=== PATIENT | female | born 1940 | race Caucasian/White ===

== ENCOUNTER → 2017-06-22 09:37 | Outpatient (CLI) | payer MEDICARE, SELFPAY ==
--- NOTE | 2017-06-22 | DI.MRI.S_ITS ---
PROCEDURE: MR ABDOMEN WO/W CON INDICATIONS: CIRRHOSIS TECHNIQUE: Coronal HASTE, axial 2D FLASH in- and [id number]; axial breath-hold T2 FSE. Dynamic axial VIBE during the administration of contrast; post-contrast coronal VIBE or 2D FLASH with fat saturation from the hepatic dome to the iliac crests. Optional diffusion weighted imaging and ADC may be performed. COMPARISON: [facility], CT, ABDOMEN W AND WO PELVIS W, 12/11/2016, 11:37. [facility], MR, ABDOMEN W&WO CONTRAST, 12/22/2016, 10:46. [facility], MR, ABDOMEN W&WO CONTRAST, 03/19/2017, 10:46. FINDINGS: Image quality: There is motion artifact limiting evaluation. Lung bases: No basal pleural effusions. Heart size is enlarged. Solid organs: The liver is slightly nodular in contour. There is heterogeneous enhancement following contrast administration during the arterial phase with nodular foci of hypervascular enhancement again demonstrated predominantly within the right hepatic lobe. The largest focus measures up to approximately 1 cm with indistinct margins. These appear similar to the prior study. No discrete foci of washout identified. 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 No discrete mass lesion or suspicious areas of washout. There is a gallstone within the gallbladder measuring up to 1.9 cm without wall thickening or pericholecystic fluid to suggest cholecystitis. Biliary system is non dilated. Pancreas is normal in morphology. Spleen is normal in size and enhancement. No adrenal nodules. There is mild left hydronephrosis with a transition at the uteropelvic junction suggestive of a mild UPJ obstruction. There is a right extrarenal pelvis without definite hydronephrosis. Within the right kidney, there is a bilobed nonenhancing hemorrhagic cyst measuring up to 1.8 cm as well as a posterior small hemorrhagic cyst measuring up to 0.5 cm redemonstrated, similar in appearance to the prior studies. Within the inferior pole of the left kidney, there is also a hemorrhagic cyst measuring up to 1.5 cm which appears similar to the prior studies. Multiple additional small bilateral renal cysts are also again noted. Nodes and vessels: No retroperitoneal or mesenteric adenopathy by size criteria. Aorta and inferior vena cava are normal in size. Bowel and peritoneum: Visualized bowel loops are normal in caliber. No free fluid. Bones and soft tissues: No ventral hernias. Bone marrow is normal in overall signal. IMPRESSION: 1. Multiple indistinct foci of hypervascular enhancement redemonstrated without definite increase in size or evidence of corresponding focal washout. 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 LI-RADS 3. 2. Cholelithiasis without evidence of cholecystitis. 3. Bilateral hemorrhagic renal cysts redemonstrated. Dictated by: Rajeev Hurley M.D. on 06/22/2017 at 11:58 Approved by: Rajeev Hurley M.D. on 06/22/2017 at 12:45
== END ==
PROVIDERS: Family Provider Internal Medicine; PCP Internal Medicine; Visit Provider Nurse Practitioner
DX: K80.20 Calculus of gallbladder without cholecystitis without obstruction (principal); N28.1 Cyst of kidney, acquired; R93.5 Abnormal findings on diagnostic imaging of other abdominal regions, including retroperitoneum
CPT/HCPCS: 74183; A9579

== ENCOUNTER → 2017-09-26 10:03 | Outpatient (CLI) | payer MEDICARE, SELFPAY ==
[2017-09-26 10:34] LABS: INR 1.3 (0.9-1.3); Prothrombin Time 14.6 SECONDS (10.1-12.7)
[2017-09-26 10:37] LABS: Add Manual Diff / Slide Review NO; Basophils Percent Auto 0.7 % (0-2); Eosinophils Percent Auto 1.7 % (2-4); Hematocrit 39.3 % (36-46); Hemoglobin 13.4 g/dL (12.0-16.0); Lymphocytes Percent Auto 34.4 % (25-40); Mean Corpuscular HGB Conc 34.2 % (30-36); Mean Corpuscular Hemoglobin 32.3 PG (26-34); Mean Corpuscular Volume 94.6 fL (80-100); Monocytes Percent Auto 9.9 % (3-14); Neutrophils Absolute Auto 3100 /uL (3000-5900); Neutrophils Percent Auto 53.3 % (50-75); Platelet Count 209 X10^3/uL (150-400); Red Blood Cell Count 4.15 X10^6/uL (4.0-5.2); Red Cell Distribution Width 13.6 % (11.6-14.8); White Blood Cell Count 5.7 X10^3/uL (4.5-11.0)
[2017-09-26 11:32] LABS: Alanine Aminotransferase 52 IU/L (9-52); Alkaline Phosphatase 152 U/L (38-126); Aspartate Aminotransferase 66 IU/L (14-36); Bilirubin Total 0.7 mg/dL (0.2-1.3); Bilirubin Unconjugated 0.3 mg/dL (0.0-1.1); Blood Urea Nitrogen 18 mg/dL (7-17); Calcium 9.2 mg/dL (8.4-10.2); Carbon Dioxide 28 mmol/L (22-32); Chloride 105 mmol/L (98-107); Cholesterol 150 mg/dL (140-199); Estimated Glomerular Filt Rate > 60.0 mL/min (>60); Gamma Glutamyl Transpeptidase 229 U/L (12-43); Globulin 4.2 g/dL (1.7-4.1); Glucose 103 mg/dL (80-110); HDL Cholesterol 48 mg/dL (40-60); HEMOLYSIS < 15 (0-50); LDL Cholesterol Calculated 88 mg/dL (<100); Potassium 4.6 mmol/L (3.4-5.1); Sodium 141 mmol/L (137-145); Total Protein 8.2 g/dL (6.3-8.2); Triglycerides 69 mg/dL (35-150)
[2017-09-28 15:19] LABS: Immunoglobulin G, Quantitative 2256 mg/dL (694-1618)
[2017-09-29 15:51] LABS: Alpha Fetoprotein 4.2 ng/mL (< 6.1)
== END ==
PROVIDERS: Family Provider Internal Medicine; PCP Internal Medicine; Visit Provider Nurse Practitioner
DX: R93.8 Abnormal findings on diagnostic imaging of other specified body structures (principal); K75.4 Autoimmune hepatitis
CPT/HCPCS: 36415; 80048; 80061; 80076; 82105; 82784; 82977; 85025; 85610

== ENCOUNTER → 2017-10-01 14:33 | Outpatient (CLI) | payer MEDICARE, SELFPAY ==
--- NOTE | 2017-10-01 | DI.MRI.S_ITS ---
PROCEDURE: MR ABDOMEN WO/W CON INDICATIONS: AUTOIMMUNE HEPATITIS TECHNIQUE: Coronal HASTE, axial 2D FLASH in- and [id number]; axial breath-hold T2 FSE. Dynamic axial VIBE during the administration of contrast; post-contrast coronal VIBE or 2D FLASH with fat saturation from the hepatic dome to the iliac crests. Optional diffusion weighted imaging and ADC may be performed. COMPARISON: [facility], MR, MR ABDOMEN WO/W CON, 06/22/2017, 10:13. [facility], MR, ABDOMEN W&WO CONTRAST, 03/19/2017, 10:46. [facility], MR, ABDOMEN W&WO CONTRAST, 12/22/2016, 10:46. FINDINGS: Image quality: Excellent. Lung bases: No basal pleural effusions. Heart size is normal. Solid organs: Liver is normal in size and enhancement except for a subtle micronodular pattern of enhancement is seen on the early arterial phase of intravascular contrast perfusion imaging. The liver margination is slightly nodular. Gallbladder again is seen to contain a moderately large gallstone but no inflammation or biliary obstruction is present.. Biliary system is non dilated. Pancreas is normal in morphology. Spleen is normal in size and enhancement. No adrenal nodules. Both kidneys demonstrate normal size and enhancement, without hydronephrosis. Several scattered small renal cortical cysts are present, including several cysts that are high in signal intensity on precontrast T1 imaging and do not show internal enhancement on postcontrast/delayed imaging. This is best seen at the lateral border of the middle third of the right kidney. Nodes and vessels: No retroperitoneal or mesenteric adenopathy by size criteria. Aorta and inferior vena cava are normal in size. Bowel and peritoneum: Unenhanced bowel loops are normal in caliber. No free fluid. Bones and soft tissues: No ventral hernias. Bone marrow is normal in overall signal. IMPRESSION: Stable micronodular pattern of hepatic enhancement, with slight nodularity along the capsular margin of the liver parenchyma in this patient with reported autoimmune hepatitis. There is no suspicion for underlying malignancy. A dominant gallstone is present within the gallbladder lumen previously the case, and there is no sign of biliary obstruction or acute cholecystitis. Scattered renal cortical cysts several of which appear to contain hemorrhagic/proteinaceous content. The study is essentially identical to the prior examination from June of this year. Dictated by: Krystian Ward M.D. on 10/01/2017 at 16:19 Approved by: Krystian Ward M.D. on 10/01/2017 at 16:25
== END ==
PROVIDERS: Family Provider Internal Medicine; PCP Internal Medicine; Visit Provider Nurse Practitioner
DX: K75.4 Autoimmune hepatitis (principal); K80.80 Other cholelithiasis without obstruction; N28.1 Cyst of kidney, acquired
CPT/HCPCS: 74183; A9579

== ENCOUNTER → 2017-11-05 10:31 | Outpatient (CLI) | payer MEDICARE, SELFPAY ==
--- NOTE | 2017-11-05 | DI.MG.S_ITS ---
BILATERAL DIGITAL SCREENING MAMMOGRAM 3D/2D WITH CAD: 11/05/2017 CLINICAL: Routine screening. Family history of breast cancer. Comparison is made to exams dated: 11/09/2015 mammogram, 11/19/2013 mammogram, and 09/03/2012 mammogram - [facility]. There are scattered fibroglandular elements in both breasts. Current study was also evaluated with a Computer Aided Detection (CAD) system. No significant masses, calcifications, or other findings are seen in either breast. There has been no significant interval change. IMPRESSION: NEGATIVE There is no mammographic evidence of malignancy. A 1 year screening mammogram is recommended.(11/06/2018) This exam was interpreted at Station ID: [id number]. NOTE: For mammograms, a report in lay terms will be sent to the patient. Approximately 15% of breast malignancies will not be visualized mammographically. In the management of a palpable breast mass, a negative mammogram must not discourage biopsy of a clinically suspicious lesion. Electronically Signed By: Violet murphy/jennifer:11/05/2017 11:12:38 letter sent: Normal Exam ACR BI-RADS Category 1: Negative [id number]
== END ==
PROVIDERS: Family Provider Internal Medicine; PCP Internal Medicine; Visit Provider Internal Medicine
DX: Z12.31 Encounter for screening mammogram for malignant neoplasm of breast (principal); Z80.3 Family history of malignant neoplasm of breast
CPT/HCPCS: 77063; 77067

== ENCOUNTER → 2017-12-10 12:32 | Outpatient (CLI) | payer MEDICARE, SELFPAY | PROVIDERS: Visit Provider Internal Medicine | DX: M81.0 Age-related osteoporosis without current pathological fracture (principal); Z78.0 Asymptomatic menopausal state; Z87.891 Personal history of nicotine dependence | CPT/HCPCS: 77080 ==

== ENCOUNTER → 2018-02-13 09:23 | Outpatient (CLI) | payer MEDICARE, SELFPAY ==
--- NOTE | 2018-02-13 | DI.MRI.S_ITS ---
PROCEDURE: MR ABDOMEN WO/W CON INDICATIONS: AUTOIMMUNE HEPATITIS TECHNIQUE: Coronal HASTE, axial 2D FLASH in- and [id number]; axial breath-hold T2 FSE with fat saturation from the hepatic dome to the iliac crests. Oblique coronal thin-slice and radial thick slab HASTE through the biliary system. Dynamic axial VIBE during administration of contrast. Post-contrast coronal VIBE or 2D FLASH with fat saturation from the hepatic dome to the iliac crests. Optional diffusion weighted imaging and ADC may be performed. COMPARISON: [facility], , ABDOMEN W&WO CONTRAST, 12/22/2016, 10:46. [facility], MR, ABDOMEN W&WO CONTRAST, 03/19/2017, 10:46. [facility], , MR ABDOMEN WO/W CON, 06/22/2017, 10:13. [facility], , MR ABDOMEN WO/W CON, 10/01/2017, 14:54. FINDINGS: Image quality: Excellent. Solid organs: The liver demonstrates a mildly nodular hepatic contour consistent with cirrhosis. Following contrast administration, numerous small foci of mild hypervascular enhancement with indistinct margins are redemonstrated throughout the liver. A hr representative nodule in the inferior right hepatic lobe on series 8 image 69 measures up to 1.0 cm, similar in size compared to the prior studies. No abnormal focal washout demonstrated on delayed images. The findings again likely represent regenerative or dysplastic nodules. No definite evidence of a hepatoma. The gallbladder is partially distended with an intraluminal gallstone redemonstrated measuring up to approximately 1.9 cm. No gallbladder wall thickening or pericholecystic fluid. No biliary duct dilatation. The pancreas demonstrates no focal lesions. No pancreatic duct dilatation. No peripancreatic edema or fluid collections. Spleen is normal in size and enhancement. No adrenal nodules. Multiple bilateral renal cysts are redemonstrated including presumed hemorrhagic cysts which demonstrate mild T1 hyperintensity and hypointense signal on T2. These include 2 small lesions in the right kidney measuring up to 1.6 cm laterally and 0.5 cm posteriorly and a small lesion in the left kidney measuring up to 1.4 cm. These appear similar in size to the prior studies. Nodes and vessels: No retroperitoneal or mesenteric adenopathy by size criteria. Aorta and inferior vena cava are normal in size. Bowel and peritoneum: Visualized bowel loops are normal in caliber throughout. No free fluid. Lung bases: No basal pleural effusions. Heart size is normal. Bones and soft tissues: No ventral hernias. Bone marrow is normal in overall signal. IMPRESSION: 1. Multiple small foci of hypervascular enhancement redemonstrated throughout the liver without corresponding abnormal washout. The findings are similar to the prior studies and again likely represent regenerative or dysplastic nodules. Recommend attention on followup. LI-RADS 3. 2. No definite evidence of a hepatoma. 3. Nodular cirrhotic liver redemonstrated. 4. Cholelithiasis without evidence of cholecystitis. 5. Bilateral hemorrhagic cysts redemonstrated. Dictated by: Rajeev Hurley M.D. on 02/13/2018 at 15:19 Approved by: Rajeev Hurley M.D. on 02/13/2018 at 16:00
[2018-02-13 10:07] LABS: INR 1.3 (0.9-1.3); Prothrombin Time 14.9 SECONDS (10.1-12.7)
[2018-02-13 10:10] LABS: Add Manual Diff / Slide Review NO; Basophils Percent Auto 0.8 % (0-2); Eosinophils Percent Auto 2.1 % (2-4); Hematocrit 40.2 % (36-46); Hemoglobin 13.6 g/dL (12.0-16.0); Lymphocytes Percent Auto 23.3 % (25-40); Mean Corpuscular HGB Conc 33.8 % (30-36); Mean Corpuscular Hemoglobin 32.9 PG (26-34); Mean Corpuscular Volume 97.5 fL (80-100); Monocytes Percent Auto 9.2 % (3-14); Neutrophils Absolute Auto 4100 /uL (1500-7000); Neutrophils Percent Auto 64.6 % (50-75); Platelet Count 268 X10^3/uL (150-400); Red Blood Cell Count 4.13 X10^6/uL (4.0-5.2); Red Cell Distribution Width 14.2 % (11.6-14.8); White Blood Cell Count 6.4 X10^3/uL (4.5-11.0)
[2018-02-13 10:18] LABS: Alanine Aminotransferase 40 IU/L (9-52); Albumin 4.1 g/dL (3.5-5.0); Albumin Globulin Ratio 0.9 (1.0-2.8); Alkaline Phosphatase 140 U/L (38-126); Aspartate Aminotransferase 64 IU/L (14-36); BUN Creatinine Ratio 18.9 (6-22); Bilirubin Total 0.7 mg/dL (0.2-1.3); Bilirubin Unconjugated 0.4 mg/dL (0.0-1.1); Blood Urea Nitrogen 17 mg/dL (7-17); Calcium 9.2 mg/dL (8.4-10.2); Carbon Dioxide 27 mmol/L (22-32); Chloride 104 mmol/L (98-107); Estimated Glomerular Filt Rate > 60.0 mL/min (>60); Globulin 4.6 g/dL (1.7-4.1); Glucose 112 mg/dL (80-110); HEMOLYSIS < 15 (0-50); Potassium 4.6 mmol/L (3.4-5.1); Sodium 141 mmol/L (137-145); Total Protein 8.7 g/dL (6.3-8.2)
[2018-02-15 15:08] LABS: Alpha Fetoprotein 4.2 ng/mL (< 6.1)
== END ==
PROVIDERS: Visit Provider Nurse Practitioner
DX: K75.4 Autoimmune hepatitis (principal); K74.69 Other cirrhosis of liver; K80.20 Calculus of gallbladder without cholecystitis without obstruction; N28.1 Cyst of kidney, acquired
CPT/HCPCS: 36415; 74183; 80048; 80076; 82105; 85025; 85610; A9579

== ENCOUNTER → 2018-03-22 10:20 | Outpatient (CLI) | payer MEDICARE, SELFPAY ==
[2018-03-22 11:26] LABS: INR 1.2 (0.9-1.3); Prothrombin Time 14.2 SECONDS (10.1-12.7)
[2018-03-22 11:33] LABS: Alanine Aminotransferase 45 IU/L (9-52); Alkaline Phosphatase 125 U/L (38-126); Aspartate Aminotransferase 63 IU/L (14-36); Bilirubin Total 0.6 mg/dL (0.2-1.3); Bilirubin Unconjugated 0.4 mg/dL (0.0-1.1); Gamma Glutamyl Transpeptidase 178 U/L (12-43); Globulin 4.1 g/dL (1.7-4.1); HEMOLYSIS < 15 (0-50); Total Protein 8.1 g/dL (6.3-8.2)
== END ==
PROVIDERS: PCP Internal Medicine; Visit Provider Nurse Practitioner
DX: K75.4 Autoimmune hepatitis (principal)
CPT/HCPCS: 36415; 80076; 82977; 85610

== ENCOUNTER → 2018-05-23 11:03 | Outpatient (CLI) | payer MEDICARE, SELFPAY ==
[2018-05-23 11:54] LABS: Add Manual Diff / Slide Review NO; Basophils Absolute Auto 0 /uL (0-100); Basophils Percent Auto 0.5 % (0-2); Eosinophils Absolute Auto 0 /uL (0-450); Eosinophils Percent Auto 0.2 % (2-4); Hematocrit 42.7 % (36-46); Hemoglobin 14.2 g/dL (12.0-16.0); Lymphocytes Absolute Auto 2300 /uL (1100-4500); Lymphocytes Percent Auto 22.1 % (25-40); Mean Corpuscular HGB Conc 33.4 % (30-36); Monocytes Absolute Auto 900 /uL (0-900); Monocytes Percent Auto 8.9 % (3-14); Neutrophils Absolute Auto 7000 /uL (1500-7000); Neutrophils Percent Auto 68.3 % (50-75); Platelet Count 247 X10^3/uL (150-400); Red Blood Cell Count 4.45 X10^6/uL (4.0-5.2); Red Cell Distribution Width 13.4 % (11.6-14.8); White Blood Cell Count 10.3 X10^3/uL (4.5-11.0)
[2018-05-23 12:32] LABS: Alanine Aminotransferase 37 IU/L (9-52); Albumin 3.9 g/dL (3.5-5.0); Albumin Globulin Ratio 1.1 (1.0-2.8); Alkaline Phosphatase 100 U/L (38-126); Aspartate Aminotransferase 36 IU/L (14-36); Bilirubin Total 0.6 mg/dL (0.2-1.3); Bilirubin Unconjugated 0.4 mg/dL (0.0-1.1); Gamma Glutamyl Transpeptidase 178 U/L (12-43); Globulin 3.7 g/dL (1.7-4.1); HEMOLYSIS < 15 (0-50); Total Protein 7.6 g/dL (6.3-8.2)
== END ==
PROVIDERS: PCP Internal Medicine; Visit Provider Nurse Practitioner
DX: K75.4 Autoimmune hepatitis (principal)
CPT/HCPCS: 36415; 80076; 82977; 85025

== ENCOUNTER → 2018-05-30 09:34 | Outpatient (CLI) | payer MEDICARE, SELFPAY ==
[2018-05-30 10:30] LABS: Add Manual Diff / Slide Review NO; Basophils Absolute Auto 0 /uL (0-100); Basophils Percent Auto 0.5 % (0-2); Eosinophils Absolute Auto 0 /uL (0-450); Hematocrit 43.1 % (36-46); Hemoglobin 14.5 g/dL (12.0-16.0); Lymphocytes Absolute Auto 1800 /uL (1100-4500); Lymphocytes Percent Auto 16.8 % (25-40); Mean Corpuscular HGB Conc 33.6 % (30-36); Mean Corpuscular Hemoglobin 32.1 PG (26-34); Mean Corpuscular Volume 95.6 fL (80-100); Monocytes Absolute Auto 400 /uL (0-900); Monocytes Percent Auto 3.5 % (3-14); Neutrophils Absolute Auto 8300 /uL (1500-7000); Neutrophils Percent Auto 79.2 % (50-75); Platelet Count 195 X10^3/uL (150-400); Red Cell Distribution Width 13.6 % (11.6-14.8); White Blood Cell Count 10.5 X10^3/uL (4.5-11.0)
[2018-05-30 11:14] LABS: Alanine Aminotransferase 38 IU/L (9-52); Albumin 3.7 g/dL (3.5-5.0); Albumin Globulin Ratio 1.1 (1.0-2.8); Alkaline Phosphatase 79 U/L (38-126); Aspartate Aminotransferase 38 IU/L (14-36); Bilirubin Total 0.7 mg/dL (0.2-1.3); Bilirubin Unconjugated 0.6 mg/dL (0.0-1.1); Gamma Glutamyl Transpeptidase 162 U/L (12-43); Globulin 3.4 g/dL (1.7-4.1); HEMOLYSIS < 15 (0-50); Total Protein 7.1 g/dL (6.3-8.2)
== END ==
PROVIDERS: PCP Internal Medicine; Visit Provider Nurse Practitioner
DX: K75.4 Autoimmune hepatitis (principal)
CPT/HCPCS: 36415; 80076; 82977; 85025

== ENCOUNTER → 2018-06-06 10:18 | Outpatient (CLI) | payer MEDICARE, SELFPAY ==
[2018-06-06 11:58] LABS: Add Manual Diff / Slide Review NO; Basophils Absolute Auto 0 /uL (0-100); Basophils Percent Auto 0.1 % (0-2); Eosinophils Absolute Auto 0 /uL (0-450); Eosinophils Percent Auto 0.3 % (2-4); Hematocrit 43.7 % (36-46); Hemoglobin 14.4 g/dL (12.0-16.0); Lymphocytes Absolute Auto 1800 /uL (1100-4500); Lymphocytes Percent Auto 17.9 % (25-40); Mean Corpuscular Hemoglobin 32.1 PG (26-34); Mean Corpuscular Volume 97.1 fL (80-100); Monocytes Absolute Auto 700 /uL (0-900); Monocytes Percent Auto 7.3 % (3-14); Neutrophils Absolute Auto 7400 /uL (1500-7000); Neutrophils Percent Auto 74.4 % (50-75); Platelet Count 208 X10^3/uL (150-400); Red Cell Distribution Width 14.4 % (11.6-14.8); White Blood Cell Count 9.9 X10^3/uL (4.5-11.0)
[2018-06-06 12:22] LABS: Alanine Aminotransferase 39 IU/L (9-52); Albumin 3.8 g/dL (3.5-5.0); Albumin Globulin Ratio 1.2 (1.0-2.8); Alkaline Phosphatase 68 U/L (38-126); Aspartate Aminotransferase 33 IU/L (14-36); Bilirubin Total 0.8 mg/dL (0.2-1.3); Bilirubin Unconjugated 0.8 mg/dL (0.0-1.1); Gamma Glutamyl Transpeptidase 139 U/L (12-43); Globulin 3.3 g/dL (1.7-4.1); HEMOLYSIS < 15 (0-50); Total Protein 7.1 g/dL (6.3-8.2)
== END ==
DX: K75.4 Autoimmune hepatitis (principal)
CPT/HCPCS: 36415; 80076; 82977; 85025

== ENCOUNTER → 2018-06-13 09:11 | Outpatient (CLI) | payer MEDICARE, SELFPAY ==
[2018-06-13 10:38] LABS: Add Manual Diff / Slide Review NO; Basophils Absolute Auto 0 /uL (0-100); Basophils Percent Auto 0.3 % (0-2); Eosinophils Absolute Auto 0 /uL (0-450); Eosinophils Percent Auto 0.1 % (2-4); Hematocrit 45.5 % (36-46); Hemoglobin 14.7 g/dL (12.0-16.0); Lymphocytes Absolute Auto 1400 /uL (1100-4500); Lymphocytes Percent Auto 18.3 % (25-40); Mean Corpuscular HGB Conc 32.2 % (30-36); Mean Corpuscular Hemoglobin 31.5 PG (26-34); Mean Corpuscular Volume 97.7 fL (80-100); Monocytes Absolute Auto 300 /uL (0-900); Monocytes Percent Auto 3.6 % (3-14); Neutrophils Absolute Auto 6100 /uL (1500-7000); Neutrophils Percent Auto 77.7 % (50-75); Platelet Count 220 X10^3/uL (150-400); Red Blood Cell Count 4.66 X10^6/uL (4.0-5.2); Red Cell Distribution Width 14.2 % (11.6-14.8); White Blood Cell Count 7.9 X10^3/uL (4.5-11.0)
[2018-06-13 11:22] LABS: Alanine Aminotransferase 32 IU/L (9-52); Albumin 3.6 g/dL (3.5-5.0); Albumin Globulin Ratio 1.4 (1.0-2.8); Alkaline Phosphatase 60 U/L (38-126); Aspartate Aminotransferase 25 IU/L (14-36); Bilirubin Total 0.8 mg/dL (0.2-1.3); Bilirubin Unconjugated 0.7 mg/dL (0.0-1.1); Gamma Glutamyl Transpeptidase 113 U/L (12-43); Globulin 2.6 g/dL (1.7-4.1); HEMOLYSIS < 15 (0-50); Total Protein 6.2 g/dL (6.3-8.2)
== END ==
PROVIDERS: Visit Provider Nurse Practitioner
DX: K75.4 Autoimmune hepatitis (principal)
CPT/HCPCS: 36415; 80076; 82977; 85025

== ENCOUNTER → 2018-06-20 09:14 | Outpatient (CLI) | payer MEDICARE, SELFPAY ==
[2018-06-20 10:25] LABS: Add Manual Diff / Slide Review NO; Basophils Absolute Auto 0 /uL (0-100); Basophils Percent Auto 0.3 % (0-2); Eosinophils Absolute Auto 0 /uL (0-450); Hematocrit 45.1 % (36-46); Lymphocytes Absolute Auto 1400 /uL (1100-4500); Lymphocytes Percent Auto 17.4 % (25-40); Mean Corpuscular HGB Conc 33.2 % (30-36); Mean Corpuscular Hemoglobin 32.2 PG (26-34); Monocytes Absolute Auto 300 /uL (0-900); Monocytes Percent Auto 3.6 % (3-14); Neutrophils Absolute Auto 6300 /uL (1500-7000); Neutrophils Percent Auto 78.7 % (50-75); Platelet Count 228 X10^3/uL (150-400); Red Blood Cell Count 4.65 X10^6/uL (4.0-5.2); Red Cell Distribution Width 14.9 % (11.6-14.8)
[2018-06-20 10:48] LABS: Alanine Aminotransferase 30 IU/L (9-52); Albumin 3.6 g/dL (3.5-5.0); Albumin Globulin Ratio 1.2 (1.0-2.8); Alkaline Phosphatase 52 U/L (38-126); Aspartate Aminotransferase 26 IU/L (14-36); Bilirubin Total 0.8 mg/dL (0.2-1.3); Bilirubin Unconjugated 0.6 mg/dL (0.0-1.1); Gamma Glutamyl Transpeptidase 105 U/L (12-43); HEMOLYSIS < 15 (0-50); Total Protein 6.6 g/dL (6.3-8.2)
== END ==
PROVIDERS: Visit Provider Nurse Practitioner
DX: K75.4 Autoimmune hepatitis (principal)
CPT/HCPCS: 36415; 80076; 82977; 85025

== ENCOUNTER → 2018-06-27 09:57 | Outpatient (CLI) | payer MEDICARE, SELFPAY ==
[2018-06-27 11:24] LABS: Alanine Aminotransferase 30 IU/L (9-52); Albumin 3.6 g/dL (3.5-5.0); Albumin Globulin Ratio 1.3 (1.0-2.8); Alkaline Phosphatase 50 U/L (38-126); Aspartate Aminotransferase 27 IU/L (14-36); Bilirubin Total 0.9 mg/dL (0.2-1.3); Bilirubin Unconjugated 0.7 mg/dL (0.0-1.1); Gamma Glutamyl Transpeptidase 99 U/L (12-43); Globulin 2.7 g/dL (1.7-4.1); HEMOLYSIS < 15 (0-50); Total Protein 6.3 g/dL (6.3-8.2)
[2018-06-27 11:48] LABS: INR 1.1 (0.9-1.3)
== END ==
PROVIDERS: Visit Provider Nurse Practitioner
DX: K75.4 Autoimmune hepatitis (principal)
CPT/HCPCS: 36415; 80076; 82977; 85610

== ENCOUNTER → 2018-07-04 09:52 | Outpatient (CLI) | payer MEDICARE, SELFPAY ==
[2018-07-04 10:35] LABS: INR 1.2 (0.9-1.3); Prothrombin Time 13.4 SECONDS (10.1-12.7)
[2018-07-04 11:05] LABS: Gamma Glutamyl Transpeptidase 95 U/L (12-43)
[2018-07-04 14:05] LABS: Alanine Aminotransferase 32 IU/L (9-52); Albumin 3.7 g/dL (3.5-5.0); Albumin Globulin Ratio 1.4 (1.0-2.8); Alkaline Phosphatase 44 U/L (38-126); Aspartate Aminotransferase 27 IU/L (14-36); Bilirubin Unconjugated 0.8 mg/dL (0.0-1.1); Globulin 2.7 g/dL (1.7-4.1); HEMOLYSIS < 15 (0-50); Total Protein 6.4 g/dL (6.3-8.2)
== END ==
PROVIDERS: Visit Provider Nurse Practitioner
DX: K75.4 Autoimmune hepatitis (principal)
CPT/HCPCS: 36415; 80076; 82977; 85610

== ENCOUNTER → 2018-07-11 10:00 | Outpatient (CLI) | payer MEDICARE, SELFPAY ==
[2018-07-11 11:46] LABS: Add Manual Diff / Slide Review NO; Basophils Absolute Auto 0 /uL (0-100); Basophils Percent Auto 0.2 % (0-2); Eosinophils Absolute Auto 0 /uL (0-450); Eosinophils Percent Auto 0.1 % (2-4); Hematocrit 45.3 % (36-46); Hemoglobin 15.2 g/dL (12.0-16.0); Lymphocytes Absolute Auto 1600 /uL (1100-4500); Lymphocytes Percent Auto 14.9 % (25-40); Mean Corpuscular HGB Conc 33.6 % (30-36); Mean Corpuscular Hemoglobin 32.7 PG (26-34); Mean Corpuscular Volume 97.4 fL (80-100); Monocytes Absolute Auto 600 /uL (0-900); Monocytes Percent Auto 5.6 % (3-14); Neutrophils Absolute Auto 8300 /uL (1500-7000); Neutrophils Percent Auto 79.2 % (50-75); Platelet Count 193 X10^3/uL (150-400); Red Blood Cell Count 4.65 X10^6/uL (4.0-5.2); Red Cell Distribution Width 15.4 % (11.6-14.8); White Blood Cell Count 10.4 X10^3/uL (4.5-11.0)
[2018-07-11 11:55] LABS: Alanine Aminotransferase 30 IU/L (9-52); Albumin 3.6 g/dL (3.5-5.0); Albumin Globulin Ratio 1.3 (1.0-2.8); Alkaline Phosphatase 44 U/L (38-126); Aspartate Aminotransferase 25 IU/L (14-36); Bilirubin Total 0.9 mg/dL (0.2-1.3); Bilirubin Unconjugated 0.7 mg/dL (0.0-1.1); Gamma Glutamyl Transpeptidase 86 U/L (12-43); Globulin 2.7 g/dL (1.7-4.1); HEMOLYSIS < 15 (0-50); Total Protein 6.3 g/dL (6.3-8.2)
== END ==
PROVIDERS: Visit Provider Nurse Practitioner
DX: K75.4 Autoimmune hepatitis (principal)
CPT/HCPCS: 36415; 80076; 82977; 85025

== ENCOUNTER → 2018-07-18 09:56 | Outpatient (CLI) | payer MEDICARE, SELFPAY ==
[2018-07-18 11:33] LABS: Add Manual Diff / Slide Review NO; Basophils Absolute Auto 0 /uL (0-100); Basophils Percent Auto 0.4 % (0-2); Eosinophils Absolute Auto 0 /uL (0-450); Eosinophils Percent Auto 0.5 % (2-4); Hematocrit 44.5 % (36-46); Hemoglobin 15.3 g/dL (12.0-16.0); Lymphocytes Absolute Auto 2200 /uL (1100-4500); Lymphocytes Percent Auto 23.6 % (25-40); Mean Corpuscular HGB Conc 34.3 % (30-36); Mean Corpuscular Hemoglobin 32.9 PG (26-34); Mean Corpuscular Volume 95.9 fL (80-100); Monocytes Absolute Auto 600 /uL (0-900); Monocytes Percent Auto 6.1 % (3-14); Neutrophils Absolute Auto 6600 /uL (1500-7000); Neutrophils Percent Auto 69.4 % (50-75); Platelet Count 196 X10^3/uL (150-400); Red Blood Cell Count 4.64 X10^6/uL (4.0-5.2); Red Cell Distribution Width 15.4 % (11.6-14.8); White Blood Cell Count 9.5 X10^3/uL (4.5-11.0)
[2018-07-18 12:03] LABS: Alanine Aminotransferase 28 IU/L (9-52); Albumin 3.4 g/dL (3.5-5.0); Albumin Globulin Ratio 1.2 (1.0-2.8); Alkaline Phosphatase 50 U/L (38-126); Aspartate Aminotransferase 30 IU/L (14-36); Bilirubin Unconjugated 0.9 mg/dL (0.0-1.1); Globulin 2.8 g/dL (1.7-4.1); HEMOLYSIS < 15 (0-50); Total Protein 6.2 g/dL (6.3-8.2)
[2018-07-18 12:48] LABS: Gamma Glutamyl Transpeptidase 94 U/L (12-43)
== END ==
PROVIDERS: Visit Provider Nurse Practitioner
DX: K75.4 Autoimmune hepatitis (principal)
CPT/HCPCS: 36415; 80076; 82977; 85025

== ENCOUNTER → 2018-07-31 14:38 | Outpatient (CLI) | payer MEDICARE, SELFPAY ==
[2018-07-31 15:37] LABS: Add Manual Diff / Slide Review NO; Basophils Absolute Auto 0 /uL (0-100); Basophils Percent Auto 0.3 % (0-2); Eosinophils Absolute Auto 0 /uL (0-450); Eosinophils Percent Auto 0.1 % (2-4); Hematocrit 40.9 % (36-46); Lymphocytes Absolute Auto 1500 /uL (1100-4500); Lymphocytes Percent Auto 14.8 % (25-40); Mean Corpuscular HGB Conc 34.3 % (30-36); Mean Corpuscular Hemoglobin 32.6 PG (26-34); Mean Corpuscular Volume 95.2 fL (80-100); Monocytes Absolute Auto 600 /uL (0-900); Monocytes Percent Auto 6.2 % (3-14); Neutrophils Absolute Auto 7700 /uL (1500-7000); Neutrophils Percent Auto 78.6 % (50-75); Platelet Count 222 X10^3/uL (150-400); Red Blood Cell Count 4.29 X10^6/uL (4.0-5.2); Red Cell Distribution Width 15.4 % (11.6-14.8); White Blood Cell Count 9.8 X10^3/uL (4.5-11.0)
[2018-07-31 15:52] LABS: Alanine Aminotransferase 34 IU/L (9-52); Albumin 3.6 g/dL (3.5-5.0); Albumin Globulin Ratio 1.2 (1.0-2.8); Alkaline Phosphatase 49 U/L (38-126); Aspartate Aminotransferase 53 IU/L (14-36); Bilirubin Total 1.5 mg/dL (0.2-1.3); Bilirubin Unconjugated 1.2 mg/dL (0.0-1.1); Gamma Glutamyl Transpeptidase 84 U/L (12-43); Globulin 3.1 g/dL (1.7-4.1); HEMOLYSIS 22 (0-50); Total Protein 6.7 g/dL (6.3-8.2)
== END ==
PROVIDERS: PCP Internal Medicine; Visit Provider Nurse Practitioner
DX: K75.4 Autoimmune hepatitis (principal)
CPT/HCPCS: 36415; 80076; 82977; 85025

== ENCOUNTER → 2018-08-01 18:31 | Outpatient (CLI) | payer MEDICARE, SELFPAY ==
--- NOTE | 2018-08-01 18:36 | DI.RAD.S_ITS ---
PROCEDURE: XR CHEST 2V INDICATIONS: COUGH TECHNIQUE: 2 views of the chest were acquired. COMPARISON: None. FINDINGS: Surgical changes and devices: None. Lungs and pleura: Lungs are clear, aside from right middle lobe airspace opacity. Mild linear scarring versus atelectasis involving the left lower lobe. No pleural effusions or pneumothorax. Mediastinum: Mediastinal contours are normal. Heart size is normal. Bones and chest wall: No suspicious bony abnormalities. Soft tissues appear unremarkable. IMPRESSION: Right middle lobe pneumonia. Continued radiographic surveillance to resolution is recommended, to exclude underlying pulmonary nodule. Dictated by: Bert Petersen Shay Interpreted: Librado Carrasco MD on 08/02/2018 at 9:53 Approved by: Librado Carrasco M.D. on 08/05/2018 at 13:26
== END ==
PROVIDERS: PCP Internal Medicine; Visit Provider Internal Medicine
DX: J18.9 Pneumonia, unspecified organism (principal); R05 Cough
CPT/HCPCS: 71046

== ENCOUNTER 2018-08-06 08:37 | Emergency (ER) | payer MEDICARE, SELFPAY ==
[2018-08-06 08:39] VITALS: BP 133/80; PULSE 114; RESP 22; TEMP 36.5; O2SAT 94; BMI 29.2
[2018-08-06 09:06] VITALS: PULSE 110; O2SAT 95
[2018-08-06] MEDS: ALBUTEROL 2.5 MG/3 ML NEB (ADULT) INH (09:10)
--- NOTE | 2018-08-06 09:17 | DI.RAD.S_ITS ---
PROCEDURE: XR CHEST 1V INDICATIONS: cough TECHNIQUE: One view of the chest was acquired. COMPARISON: [facility], CR, XR CHEST 2V, 08/01/2018, 18:41. FINDINGS: Surgical changes and devices: None. Lungs and pleura: Consolidation within the right middle lobe is slightly less prominent. No effusion or pneumothorax is evident. There may be minimal atelectasis within the left lung base. Mediastinum: Mediastinal contours appear normal. Heart size is normal. Bones and chest wall: No suspicious bony lesions. Overlying soft tissues appear unremarkable. IMPRESSION: Right middle lobe consolidation is slightly less pronounced, but remain suspicious for pneumonia. Dictated by: Candelario Kauffman M.D. on 08/06/2018 at 8:38 Approved by: Candelario Kauffman M.D. on 08/06/2018 at 8:40
[2018-08-06] MEDS: MORPHINE 2 MG/ML INJ IV (09:40)
[2018-08-06] MEDS: SODIUM CHLORIDE 0.9% 1,000 ML 1000 ML IV ×2 (09:40→10:54)
[2018-08-06] MEDS: ONDANSETRON 4 MG/2 ML INJ IV (09:41)
[2018-08-06 09:55] VITALS: BP 94/52; PULSE 92; RESP 16; O2SAT 94
[2018-08-06 09:57] LABS: Add Manual Diff / Slide Review NO; Basophils Absolute Auto 100 /uL (0-100); Eosinophils Absolute Auto 0 /uL (0-450); Eosinophils Percent Auto 0.2 % (2-4); Hematocrit 41.5 % (36-46); Hemoglobin 14.3 g/dL (12.0-16.0); Lymphocytes Absolute Auto 2100 /uL (1100-4500); Lymphocytes Percent Auto 28.3 % (25-40); Mean Corpuscular HGB Conc 34.5 % (30-36); Mean Corpuscular Hemoglobin 32.8 PG (26-34); Monocytes Absolute Auto 500 /uL (0-900); Monocytes Percent Auto 6.6 % (3-14); Neutrophils Absolute Auto 4700 /uL (1500-7000); Neutrophils Percent Auto 63.9 % (50-75); Platelet Count 331 X10^3/uL (150-400); Red Blood Cell Count 4.37 X10^6/uL (4.0-5.2); Red Cell Distribution Width 14.8 % (11.6-14.8); White Blood Cell Count 7.3 X10^3/uL (4.5-11.0)
[2018-08-06 10:00] VITALS: BP 96/62; PULSE 91; RESP 18; O2SAT 96
[2018-08-06 10:02] LABS: Alanine Aminotransferase 30 IU/L (9-52); Albumin 3.6 g/dL (3.5-5.0); Albumin Globulin Ratio 1.1 (1.0-2.8); Alkaline Phosphatase 53 U/L (38-126); Aspartate Aminotransferase 34 IU/L (14-36); BUN Creatinine Ratio 17.8 (6-22); Blood Urea Nitrogen 16 mg/dL (7-17); Calcium 9.4 mg/dL (8.4-10.2); Carbon Dioxide 26 mmol/L (22-32); Chloride 103 mmol/L (98-107); Estimated Glomerular Filt Rate > 60.0 mL/min (>60); Globulin 3.4 g/dL (1.7-4.1); Glucose 119 mg/dL (80-110); HEMOLYSIS < 15 (0-50); Potassium 3.8 mmol/L (3.4-5.1); Sodium 140 mmol/L (137-145)
[2018-08-06 10:27] LABS: B Type Natriuretic Peptide < 100 (<100)
[2018-08-06 10:30] VITALS: BP 97/63; PULSE 79; RESP 16; O2SAT 92
--- NOTE | 2018-08-06 10:50 | ED.URI ---
HPI - URI/Sore Throat General Chief Complaint: Upper Respiratory Symptoms Stated Complaint: right lower lobe pnumonia Time Seen by Provider: 08/06/18 08:51 Source: patient Mode of arrival: ambulatory Limitations: no limitations History of Present Illness HPI Narrative: Patient comes emergency department complaining of a cough for the last 2 weeks. Patient states that she was in [place] with her sister and they both got sick with a cough and patient also noticed some pain over her right lateral ribcage. She states she diagnosed herself with right lower lobe pneumonia, but did not get an antibiotics until seeing her primary care physician here in town upon arrival back here several days later. Patient was given a course of Zithromax, which she stated did not improve her symptoms at all. Patient then had a chest x-ray which did demonstrate right lower lobe pneumonia, and a physician friend placed her on Levaquin. Patient states she had 1 dose last night, and that ?nothing is better?. She states she is coughing very hard, and that keeps her up at night. She states when she tries to eat, she feels nauseated, so she has not been eating and drinking as much as usual. Patient states that she has lost 15 lb in the last few weeks. Patient denies any fevers. She states she was placed on an albuterol inhaler earlier in the course of her illness, and that this was unhelpful. Patient denies any underlying lung issues. She has no history of congestive heart failure that she knows of. She is not a smoker. No abdominal pain. No other complaints at this time. Related Data Home Medications Medication Instructions Recorded Confirmed albuterol sulfate [ProAir HFA] 2 puff INHALATION Q6H PRN 08/06/18 08/06/18 alendronate 70 mg PO QWEEK 08/06/18 08/06/18 atorvastatin 20 mg PO DAILY 08/06/18 08/06/18 azathioprine 100 mg PO DAILY 08/06/18 08/06/18 azithromycin 250 mg PO DAILY 08/06/18 08/06/18 levothyroxine 75 mcg PO DAILY 08/06/18 08/06/18 losartan 12.5 mg PO DAILY 08/06/18 08/06/18 prednisone 7.5 mg PO DAILY 08/06/18 08/06/18 prednisone 10 mg PO DAILY 08/06/18 08/06/18 spironolactone 25 mg PO DAILY 08/06/18 08/06/18 Previous Rx's Medication Instructions Recorded benzonatate 100 mg capsule 100 mg PO BID PRN #20 cap 08/03/18 benzonatate [Tessalon Perles] 100 mg PO TID PRN #20 cap 08/06/18 hydrocodone-acetaminophen 5 ml PO Q4-6H PRN #200 ml 08/06/18 ondansetron 4 mg PO Q6H PRN #20 tab 08/06/18 Allergies Allergy/AdvReac Type Severity Reaction Status Date / Time Sulfa (Sulfonamide Allergy Verified 08/06/18 08:55 Antibiotics) Review of Systems Constitutional Denies chills, Denies fever(s), Denies lethargy and Denies weakness Eyes Denies change in vision, Denies eye discharge, Denies irritation and Denies loss of vision ENT Ears, Nose, Mouth, and Throat: Denies change in voice, Denies neck pain and Denies sore throat Cardiovascular Denies chest pain, Denies irregular heart rhythm, Denies lightheadedness, Denies palpitations, Denies dyspnea, Denies dyspnea on exertion and Denies orthopnea Respiratory Reports cough, Denies dyspnea, Denies dyspnea on exertion and Denies wheezing Gastrointestinal Gastrointestinal: Denies abdominal pain, Denies change in bowel habits, Denies diarrhea, Denies nausea and Denies vomiting Genitourinary Denies hematuria, Denies flank pain, Denies urinary incontinence and Denies urinary urgency Musculoskeletal Denies neck pain Integumentary/Breasts Denies pruritus, Denies erythema, Denies rash and Denies wounds Neurologic Denies confusion, Denies loss of vision and Denies weakness Psychiatric Denies anxiety, Denies confusion, Denies depression, Denies homicidal ideation and Denies suicidal ideation Endocrine Denies palpitations Hematologic/Lymphatic Denies easy bruising Allergic/Immunologic Denies wheezing [facility] Medical History (Updated 08/06/18 @ 12:09 by Marla Grissom MD) Autoimmune hepatitis treated with steroids (Acute) Hypercholesteremia (Acute) Hypertension (Acute) Hypothyroid (Acute) Osteoporosis (Acute) Social History Smoking Status: Former smoker Social History Smoking Status: Former smoker Exam Initial Vital Signs Initial Vital Signs: Vital Signs Temperature 97.7 F 08/06/18 08:39 Pulse Rate 114 H 08/06/18 08:39 Respiratory Rate 22 08/06/18 08:39 Blood Pressure 133/80 08/06/18 08:39 Pulse Oximetry 94 08/06/18 08:39 Course Course Narrative: Patient he was treated symptomatically with IV fluids, morphine, and Zofran in the emergency department, and worked up with labs, chest EKG. Workup was unremarkable found to be feeling somewhat better after the above interventions. We have discussed home management symptoms, as well as the usual indications for return. Patient needs to give the antibiotics more time to improve the pneumonia, but she has also been advised that it is not uncommon for there to be a residual cough for couple of weeks after pneumonia, but this does not necessarily mean that the infection is still present. The patient already has Tessalon Perles which she was just prescribed yesterday. I have added to this hydrocodone elixir. Patient should finish her course of antibiotics and follow up with her primary care physician. We have discussed the usual indications for return. Orders Ordered: Discontinued Medications Albuterol (Ventolin) 2.5 mg INH NOW ONE Stop: 08/06/18 09:03 Last Admin: 08/06/18 09:10 Dose: 2.5 mg Sodium Chloride (Normal Saline 0.9%) 1,000 mls @ 1,000 mls/hr IV BOLUS ONE Stop: 08/06/18 10:27 Last Infusion: 08/06/18 10:38 Dose: 0 mls/hr Admin: 08/06/18 09:40 Dose: 1,000 mls/hr Sodium Chloride (Normal Saline 0.9%) 1,000 mls @ 1,000 mls/hr IV BOLUS ONE Stop: 08/06/18 11:49 Last Infusion: 08/06/18 12:06 Dose: 0 mls/hr Admin: 08/06/18 10:54 Dose: 1,000 mls/hr Morphine Sulfate (Morphine) 2 mg IV NOW ONE Stop: 08/06/18 09:18 Last Admin: 08/06/18 09:40 Dose: 2 mg Ondansetron HCl (Zofran) 4 mg IV NOW ONE Stop: 08/06/18 09:18 Last Admin: 08/06/18 09:41 Dose: 4 mg Vital Signs - 8 hr 08/06/18 08:39 08/06/18 09:06 08/06/18 09:55 Temperature 97.7 F Pulse Rate 114 H 110 H 92 H Respiratory Rate 22 16 Blood Pressure 133/80 Blood Pressure [Left Arm] 94/52 L Pulse Oximetry 94 95 94 08/06/18 10:30 Temperature Pulse Rate 79 Respiratory Rate 16 Blood Pressure Blood Pressure [Left Arm] 97/63 Pulse Oximetry 92 MDM - URI/Sore Throat Medical Records Attestation: I reviewed the patient's medical records. Lab Data Attestation: I reviewed the patient's lab results. Result diagrams: 08/06/18 09:43 08/06/18 09:43 Lab Results 08/06/18 08/06/18 Range/Units 09:43 09:43 WBC 7.3 (4.5-11.0) X10^3/uL RBC 4.37 (4.0-5.2) X10^6/uL Hgb 14.3 (12.0-16.0) g/dL Hct 41.5 (36-46) % MCV 95.0 (80-100) fL MCH 32.8 (26-34) PG MCHC 34.5 (30-36) % RDW 14.8 (11.6-14.8) % Plt Count 331 (150-400) X10^3/uL Neut % (Auto) 63.9 (50-75) % Lymph % (Auto) 28.3 (25-40) % [place] % (Auto) 6.6 (3-14) % Eos % (Auto) 0.2 L (2-4) % Baso % (Auto) 1.0 (0-2) % Neut # (Auto) 4700 (1927-8098) /uL Lymph # (Auto) 2100 (8843-3074) /uL [place] # (Auto) 500 (0-900) /uL Eos # (Auto) 0 (0-450) /uL Baso # (Auto) 100 (0-100) /uL Sodium 140 (137-145) mmol/L Potassium 3.8 (3.4-5.1) mmol/L Chloride 103 (98-107) mmol/L Carbon Dioxide 26 (22-32) mmol/L BUN 16 (7-17) mg/dL Creatinine 0.90 (0.52-1.04) mg/dL Estimated GFR > 60.0 (>60) mL/min BUN/Creatinine Ratio 17.8 (6-22) Glucose 119 H (80-110) mg/dL Calcium 9.4 (8.4-10.2) mg/dL Total Bilirubin 1.0 (0.2-1.3) mg/dL AST 34 (14-36) IU/L ALT 30 (9-52) IU/L Alkaline Phosphatase 53 (38-126) U/L B-Natriuretic Peptide < 100 (<100) Total Protein 7.0 (6.3-8.2) g/dL Albumin 3.6 (3.5-5.0) g/dL Globulin 3.4 (1.7-4.1) g/dL Albumin/Globulin Ratio 1.1 (1.0-2.8) Imaging Data Chest x-ray: Radiologist's impression: PROCEDURE: XR CHEST 1V INDICATIONS: cough TECHNIQUE: One view of the chest was acquired. COMPARISON: [facility], , XR CHEST 2V, 08/01/2018, 18:41. FINDINGS: Surgical changes and devices: None. Lungs and pleura: Consolidation within the right middle lobe is slightly less prominent. No effusion or pneumothorax is evident. There may be minimal atelectasis within the left lung base. Mediastinum: Mediastinal contours appear normal. Heart size is normal. Bones and chest wall: No suspicious bony lesions. Overlying soft tissues appear unremarkable. IMPRESSION: Right middle lobe consolidation is slightly less pronounced, but remain suspicious for pneumonia. Dictated by: Candelario Kauffman M.D. on 08/06/2018 at 8:38 Approved by: Candelario Kauffman M.D. on 08/06/2018 at 8:40 Discharge Plan Departure Patient Disposition: Home Clinical Impression: Pneumonia Qualifiers: Pneumonia type: due to unspecified organism Laterality: right Lung location: lower lobe of lung Qualified Code(s): J18.1 - Lobar pneumonia, unspecified organism Discharge Date/Time: 08/06/18 12:20 Interventions: ED Discharge Assessment Last Done: 08/06/18 12:19 Instructions: DI for Pneumonia -- Adult Activity Restrictions/Additional Instructions: Your labs, overall, look good. You have slight elevation of your blood sugar, but your white blood cell count is normal. Your chest x-ray shows an improving right lower lobe pneumonia. The cough is from irritation of the receptors in your airways from the infection and likely from inflammation resulting from the ongoing cough itself. This will settle down over time, but it is not uncommon to have a lingering cough for a couple of weeks after pneumonia. The mccullough is to sign what works best to manage your symptoms likely recover. To this end, he will be prescribed a cough medication, as well as a small dose of liquid narcotic as a cough suppressant. This only be a short-term medication, and can be quite helpful in the initial coughing phase. Please continue your antibiotics, as prescribed until the course is finished. You may also take the melt in the mouth nausea pill, as needed for nausea. Your Zofran prescription for nausea has been sent electronically to [facility] in [place]. Prescriptions: New ondansetron 4 mg tablet,disintegrating 4 mg PO Q6H PRN (Reason: nausea and vomiting) Qty: 20 RF: 0 benzonatate [Tessalon Perles] 100 mg capsule 100 mg PO TID PRN (Reason: cough) Qty: 20 RF: 0 hydrocodone-acetaminophen 7.5-325 mg/15 mL solution 5 ml PO Q4-6H PRN (Reason: pain) Qty: 200 RF: 0 No Action benzonatate [Tessalon Perles] 100 mg capsule 100 mg PO BID PRN (Reason: cough) Qty: 20 RF: 0 prednisone 10 mg tablet 10 mg PO DAILY RF: 0 atorvastatin 20 mg tablet 20 mg PO DAILY RF: 0 azithromycin 250 mg tablet 250 mg PO DAILY RF: 0 alendronate 70 mg tablet 70 mg PO QWEEK RF: 0 prednisone 5 mg tablet 7.5 mg PO DAILY RF: 0 azathioprine 50 mg tablet 100 mg PO DAILY RF: 0 spironolactone 25 mg tablet 25 mg PO DAILY RF: 0 levothyroxine 75 mcg tablet 75 mcg PO DAILY RF: 0 losartan 25 mg tablet 12.5 mg PO DAILY RF: 0 albuterol sulfate [ProAir HFA] 90 mcg/actuation HFA aerosol inhaler 2 puff inhalation Q6H PRN (Reason: Shortness Of Breath) RF: 0 Referrals: Katie Pelaez MD [Primary Care Provider] -
--- NOTE | 2018-08-06 10:56 | ED_ITS ---
HPI - URI/Sore Throat General Chief Complaint: Upper Respiratory Symptoms Stated Complaint: right lower lobe pnumonia Time Seen by Provider: 08/06/18 08:51 Source: patient Mode of arrival: ambulatory Limitations: no limitations History of Present Illness HPI Narrative: Patient comes emergency department complaining of a cough for the last 2 weeks. Patient states that she was in [place] with her sister and they both got sick with a cough and patient also noticed some pain over her right lateral ribcage. She states she diagnosed herself with right lower lobe pneumonia, but did not get an antibiotics until seeing her primary care physician here in town upon arrival back here several days later. Patient was g iven a course of Zithromax, which she stated did not improve her symptoms at all. Patient then had a chest x-ray which did demonstrate right lower lobe pneumonia, and a physician friend placed her on Levaquin. Patient states she had 1 dose last night, and that ?nothing is better?. She states she is coughing very hard, and that keeps her up at night. She states when she tries to eat, she feels nauseated, so she has not been eating and drinking as much as usual. Patient states that she has lost 15 lb in the last few weeks. Patient denies any fevers. She states she was placed on an albuterol inhaler earlier in the course of her illness, and that this was unhelpful. Patient denies any un derlying lung issues. She has no history of congestive heart failure that she knows of. She is not a smoker. No abdominal pain. No other complaints at this time. Related Data Home Medications Medication Instructions Recorded Confirmed albuterol sulfate [ProAir HFA] 2 puff INHALATION Q6H PRN 08/06/18 08/06/18 alendronate 70 mg PO QWEEK 08/06/18 08/06/18 atorvastatin 20 mg PO DAILY 08/06/18 08/06/18 azathioprine 100 mg PO DAILY 08/06/18 08/06/18 azithromycin 250 mg PO DAILY 08/06/18 08/06/18 levothyroxine 75 mcg PO DAILY 08/06/18 08/06/18 losartan 12.5 mg PO DAILY 08/06/18 08/06/18 prednisone 7.5 mg PO DAILY 08/06/18 08/06/18 prednisone 10 mg PO DAILY 08/06/18 08/06/18 spironolactone 25 mg PO DAILY 08/06/18 08/06/18 Previous Rx's Medication Instructions Recorded benzonatate 100 mg capsule 100 mg PO BID PRN #20 cap 08/03/18 benzonatate [Tessalon Perles] 100 mg PO TID PRN #20 cap 08/06/18 hydrocodone-acetaminophen 5 ml PO Q4-6H PRN #200 ml 08/06/18 ondansetron 4 mg PO Q6H PRN #20 tab 08/06/18 Allergies Allergy/AdvReac Type Severity Reaction Status Date / Time Sulfa (Sulfonamide Allergy Verified 08/06/18 08:55 Antibiotics) Review of Systems Constitutional Denies chills, Denies fever(s), Denies lethargy and Denies weakness Eyes Denies change in vision, Denies eye discharge, Denies irritation and Denies loss of vision ENT Ears, Nose, Mouth, and Throat: Denies change in voice, Denies neck pain and Denies sore throat Cardiovascular Denies chest pain, Denies irregular heart rhythm, Denies lightheadedness, Denies palpitations, Denies dyspnea, Denies dyspnea on exertion and Denies orthopnea Respiratory Reports cough, Denies dyspnea, Denies dyspnea on exertion and Denies wheezing Gastrointestinal Gastrointestinal: Denies abdominal pain, Denies change in bowel habits, Denies diarrhea, Denies nausea and Denies vomiting Genitourinary Denies hematuria, Denies flank pain, Denies urinary incontinence and Denies urinary urgency Musculoskeletal Denies neck pain Integumentary/Breasts Denies pruritus, Denies erythema, Denies rash and Denies wounds Neurologic Denies confusion, Denies loss of vision and Denies weakness Psychiatric Denies anxiety, Denies confusion, Denies depression, Denies homicidal ideation and Denies suicidal ideation Endocrine Denies palpitations Hematologic/Lymphatic Denies easy bruising Allergic/Immunologic Denies wheezing [facility] Medical History (Updated 08/06/18 @ 12:09 by Marla Grissom MD) Autoimmune hepatitis treated with steroids (Acute) Hypercholesteremia (Acute) Hypertension (Acute) Hypothyroid (Acute) Osteoporosis (Acute) Social History Smoking Status: Former smoker Social History Smoking Status: Former smoker Exam Initial Vital Signs Initial Vital Signs: Vital Signs Temperature 97.7 F 08/06/18 08:39 Pulse Rate 114 H 08/06/18 08:39 Respiratory Rate 22 08/06/18 08:39 Blood Pressure 133/80 08/06/18 08:39 Pulse Oximetry 94 08/06/18 08:39 Course Course Narrative: Patient he was treated symptomatically with IV fluids, m orphine, and Zofran in the emergency department, and worked up with labs, chest EKG. Workup was unremarkable found to be feeling somewhat better after the above interventions. We have discussed home management symptoms, as well as the usual indications for return. Patient needs to give the antibiotics more time to improve the pneumonia, but she has also been advised that it is not uncommon for there to be a residual cough for couple of weeks after pneumonia, but this does not necessarily mean that the infection is still present. The patient already has Tessalon Perles which she was just prescribed yesterday. I have added to this hydrocodone elixir. Patient should finish her course of a ntibiotics and follow up with her primary care physician. We have discussed the usual indications for return. Orders Ordered: Discontinued Medications Albuterol (Ventolin) 2.5 mg INH NOW ONE Stop: 08/06/18 09:03 Last Admin: 08/06/18 09:10 Dose: 2.5 mg Sodium Chloride (Normal Saline 0.9%) 1,000 mls @ 1,000 mls/hr IV BOLUS ONE Stop: 08/06/18 10:27 Last Infusion: 08/06/18 10:38 Dose: 0 mls/hr Admin: 08/06/18 09:40 Dose: 1,000 mls/hr Sodium Chloride (Normal Saline 0.9%) 1,000 mls @ 1,000 mls/hr IV BOLUS ONE Stop: 08/06/18 11:49 Last Infusion: 08/06/18 12:06 Dose: 0 mls/hr Admin: 08/06/18 10:54 Dose: 1,000 mls/hr Morphine Sulfate (Morphine) 2 mg IV NOW ONE Stop: 08/06/18 09:18 Last Admin: 08/06/18 09:40 Dose: 2 mg Ondansetron HCl (Zofran) 4 mg IV NOW ONE Stop: 08/06/18 09:18 Last Admin: 08/06/18 09:41 Dose: 4 mg Vital Signs - 8 hr 08/06/18 08:39 08/06/18 09:06 08/06/18 09:55 Temperature 97.7 F Pulse Rate 114 H 110 H 92 H Respiratory Rate 22 16 Blood Pressure 133/80 Blood Pressure [Left Arm] 94/52 L Pulse Oximetry 94 95 94 08/06/18 10:30 Temperature Pulse Rate 79 Respiratory Rate 16 Blood Pressure Blood Pressure [Left Arm] 97/63 Pulse Oximetry 92 MDM - URI/Sore Throat Medical Records Attestation: I reviewed the patient's medical records. Lab Data Attestation: I reviewed the patient's lab results. Result diagrams: 08/06/18 09:43 08/06/18 09:43 Lab Results 08/06/18 08/06/18 Range/Units 09:43 09:43 WBC 7.3 (4.5-11.0) X10^3/uL RBC 4.37 (4.0-5.2) X10^6/uL Hgb 14.3 (12.0-16.0) g/dL Hct 41.5 (36-46) % MCV 95.0 (80-100) fL MCH 32.8 (26-34) PG MCHC 34.5 (30-36) % RDW 14.8 (11.6-14.8) % Plt Count 331 (150-400) X10^3/uL Neut % (Auto) 63.9 (50-75) % Lymph % (Auto) 28.3 (25-40) % [place] % (Auto) 6.6 (3-14) % Eos % (Auto) 0.2 L (2-4) % Baso % (Auto) 1.0 (0-2) % Neut # (Auto) 4700 (5333-0240) /uL Lymph # (Auto) 2100 (3446-1736) /uL [place] # (Auto) 500 (0-900) /uL Eos # (Auto) 0 (0-450) /uL Baso # (Auto) 100 (0-100) /uL Sodium 140 (137-145) mmol/L Potassium 3.8 (3.4-5.1) mmol/L Chloride 103 (98-107) mmol/L Carbon Dioxide 26 (22-32) mmol/L BUN 16 (7-17) mg/dL Creatinine 0.90 (0.52-1.04) mg/dL Estimated GFR > 60.0 (>60) mL/min BUN/Creatinine Ratio 17.8 (6-22) Glucose 119 H (80-110) mg/dL Calcium 9.4 (8.4-10.2) mg/dL Total Bilirubin 1.0 (0.2-1.3) mg/dL AST 34 (14-36) IU/L ALT 30 (9-52) IU/L Alkaline Phosphatase 53 (38-126) U/L B-Natriuretic Peptide < 100 (<100) Total Protein 7.0 (6.3-8.2) g/dL Albumin 3.6 (3.5-5.0) g/dL Globulin 3.4 (1.7-4.1) g/dL Albumin/Globulin Ratio 1.1 (1.0-2.8) Imaging Data Chest x-ray: Radiologist's impression: PROCEDURE: XR CHEST 1V INDICATIONS: cough TECHNIQUE: One view of the chest was acquired. COMPARISON: [facility], , XR CHEST 2V, 08/01/2018, 18:41. FINDINGS: Surgical changes and devices: None. Lungs and pleura: Consolidation within the right middle lobe is slightly less prominent. No effusion or pneumothorax is evident. There may be minimal atelectasis within the left lung base. Mediastinum: Mediastinal contours appear normal. Heart size is normal. Bones and chest wall: No suspicious bony lesions. Overlying soft tissues appear unremarkable. IMPRESSION: Right middle lobe consolidation is slightly less pronounced, but remain suspicious for pneumonia. Dictated by: Candelario Kauffman M.D. on 08/06/2018 at 8:38 Approved by: Candelario Kauffman M.D. on 08/06/2018 at 8:40 Discharge Plan Departure Patient Disposition: Home Clinical Impression: Pneumonia Qualifiers: Pneumonia type: due to unspecified organism Laterality: right Lung location: lower lobe of lung Qualified Code(s): J18.1 - Lobar pneumonia, unspecified organism Discharge Date/Time: 08/06/18 12:20 Interventions: ED Discharge Assessment Last Done: 08/06/18 12:19 Instructions: DI for Pneumonia -- Adult Activity Restrictions/Additional Instructions: Your labs, overall, look good. You have slight elevation of your blood sugar, but your white blood cell count is normal. Your chest x-ray shows an improving right lower lobe pneumonia. The cough is from irritation of the receptors in your airways from the infection and likely from inflammation resulting from the ongoing cough itself. This will settle down over time, but it is not uncommon to have a lingering cough for a couple of weeks after pneumonia. The mccullough is to sign what works best to manage your symptoms likely recover. To this end, he will be prescribed a cough medication, as well as a small dose of liquid narcotic as a cough suppressant. This only be a short-term medication, and can be quite helpful in the initial coughing phase. Please continue your antibiotics, as prescribed until the course is finished. You may also take the melt in the mouth nausea pill, as needed for nausea. Your Zofran prescription for nausea has been sent electronically to [facility] in [place]. Prescriptions: New ondansetron 4 mg tablet,disintegrating 4 mg PO Q6H PRN (Reason: nausea and vomiting) Qty: 20 RF: 0 benzonatate [Tessalon Perles] 100 mg capsule 100 mg PO TID PRN (Reason: cough) Qty: 20 RF: 0 hydrocodone-acetaminophen 7.5-325 mg/15 mL solution 5 ml PO Q4-6H PRN (Reason: pain) Qty: 200 RF: 0 No Action benzonatate [Tessalon Perles] 100 mg capsule 100 mg PO BID PRN (Reason: cough) Qty: 20 RF: 0 prednisone 10 mg tablet 10 mg PO DAILY RF: 0 atorvastatin 20 mg tablet 20 mg PO DAILY RF: 0 azithromycin 250 mg tablet 250 mg PO DAILY RF: 0 alendronate 70 mg tablet 70 mg PO QWEEK RF: 0 prednisone 5 mg tablet 7.5 mg PO DAILY RF: 0 azathioprine 50 mg tablet 100 mg PO DAILY RF: 0 spironolactone 25 mg tablet 25 mg PO DAILY RF: 0 levothyroxine 75 mcg tablet 75 mcg PO DAILY RF: 0 losartan 25 mg tablet 12.5 mg PO DAILY RF: 0 albuterol sulfate [ProAir HFA] 90 mcg/actuation HFA aerosol inhaler 2 puff inhalation Q6H PRN (Reason: Shortness Of Breath) RF: 0 Referrals: Katie Pelaez MD [Primary Care Provider] -
[2018-08-06 11:20] VITALS: BP 93/77; PULSE 77; RESP 18; O2SAT 95
== END 2018-08-06 12:20 | disposition home or self-care (01) ==
PROVIDERS: Emergency Provider Emergency Medicine; PCP Internal Medicine
DX: J18.1 Lobar pneumonia, unspecified organism (principal); R07.81 Pleurodynia; R00.0 Tachycardia, unspecified
CPT/HCPCS: 36591; 71045; 80053; 83880; 85025; 93005; 93010; 94640; 96361; 96374; 96375; 99283; 99285; J2270; J2405; J7613

== ENCOUNTER → 2018-08-13 12:17 | Outpatient (CLI) | payer MEDICARE, SELFPAY ==
[2018-08-13 13:27] LABS: Alanine Aminotransferase 23 IU/L (9-52); Albumin 3.6 g/dL (3.5-5.0); Alkaline Phosphatase 58 U/L (38-126); Aspartate Aminotransferase 33 IU/L (14-36); Bilirubin Total 1.1 mg/dL (0.2-1.3); Bilirubin Unconjugated 0.8 mg/dL (0.0-1.1); Gamma Glutamyl Transpeptidase 74 U/L (12-43); HEMOLYSIS < 15 (0-50)
[2018-08-13 13:29] LABS: Albumin Globulin Ratio 1.2 (1.0-2.8); Globulin 2.9 g/dL (1.7-4.1); Total Protein 6.5 g/dL (6.3-8.2)
== END ==
PROVIDERS: PCP Internal Medicine; Visit Provider Nurse Practitioner
DX: K75.4 Autoimmune hepatitis (principal)
CPT/HCPCS: 36415; 80076; 82977

== ENCOUNTER → 2018-08-21 10:43 | Outpatient (CLI) | payer MEDICARE, SELFPAY ==
[2018-08-21 11:48] LABS: INR 1.2 (0.9-1.3); Prothrombin Time 13.5 SECONDS (10.1-12.7)
[2018-08-21 11:59] LABS: Alanine Aminotransferase 27 IU/L (9-52); Albumin 3.7 g/dL (3.5-5.0); Albumin Globulin Ratio 1.3 (1.0-2.8); Alkaline Phosphatase 50 U/L (38-126); Aspartate Aminotransferase 31 IU/L (14-36); BUN Creatinine Ratio 21.4 (6-22); Bilirubin Total 0.8 mg/dL (0.2-1.3); Bilirubin Unconjugated 0.6 mg/dL (0.0-1.1); Blood Urea Nitrogen 15 mg/dL (7-17); Calcium 9.2 mg/dL (8.4-10.2); Carbon Dioxide 27 mmol/L (22-32); Chloride 107 mmol/L (98-107); Estimated Glomerular Filt Rate > 60.0 mL/min (>60); Gamma Glutamyl Transpeptidase 77 U/L (12-43); Globulin 2.8 g/dL (1.7-4.1); Glucose 88 mg/dL (80-110); HEMOLYSIS < 15 (0-50); Potassium 4.3 mmol/L (3.4-5.1); Sodium 142 mmol/L (137-145); Total Protein 6.5 g/dL (6.3-8.2)
== END ==
PROVIDERS: Family Provider Internal Medicine; PCP Internal Medicine; Visit Provider Nurse Practitioner
DX: K75.4 Autoimmune hepatitis (principal)
CPT/HCPCS: 36415; 80048; 80076; 82977; 85610

== ENCOUNTER → 2018-08-28 11:08 | Outpatient (CLI) | payer MEDICARE, SELFPAY ==
[2018-08-28 12:05] LABS: INR 1.2 (0.9-1.3); Prothrombin Time 13.7 SECONDS (10.1-12.7)
[2018-08-28 12:14] LABS: Alanine Aminotransferase 22 IU/L (9-52); Albumin 3.7 g/dL (3.5-5.0); Albumin Globulin Ratio 1.4 (1.0-2.8); Alkaline Phosphatase 54 U/L (38-126); Aspartate Aminotransferase 27 IU/L (14-36); Bilirubin Total 0.9 mg/dL (0.2-1.3); Bilirubin Unconjugated 0.7 mg/dL (0.0-1.1); Gamma Glutamyl Transpeptidase 76 U/L (12-43); Globulin 2.7 g/dL (1.7-4.1); HEMOLYSIS < 15 (0-50); Total Protein 6.4 g/dL (6.3-8.2)
== END ==
PROVIDERS: PCP Internal Medicine; Visit Provider Nurse Practitioner
DX: K75.4 Autoimmune hepatitis (principal)
CPT/HCPCS: 36415; 80076; 82977; 85610

== ENCOUNTER → 2018-09-04 09:53 | Outpatient (CLI) | payer MEDICARE, SELFPAY ==
[2018-09-04 10:27] LABS: INR 1.2 (0.9-1.3); Prothrombin Time 14.1 SECONDS (10.1-12.7)
[2018-09-04 10:47] LABS: Alanine Aminotransferase 21 IU/L (9-52); Albumin 3.6 g/dL (3.5-5.0); Albumin Globulin Ratio 1.3 (1.0-2.8); Alkaline Phosphatase 48 U/L (38-126); Aspartate Aminotransferase 26 IU/L (14-36); Bilirubin Unconjugated 0.8 mg/dL (0.0-1.1); Gamma Glutamyl Transpeptidase 66 U/L (12-43); Globulin 2.7 g/dL (1.7-4.1); HEMOLYSIS < 15 (0-50); Total Protein 6.3 g/dL (6.3-8.2)
== END ==
PROVIDERS: PCP Internal Medicine; Visit Provider Nurse Practitioner
DX: K75.4 Autoimmune hepatitis (principal)
CPT/HCPCS: 36415; 80076; 82977; 85610

== ENCOUNTER → 2018-09-04 10:03 | Outpatient (CLI) | payer MEDICARE, SELFPAY ==
--- NOTE | 2018-09-04 | DI.RAD.S_ITS ---
PROCEDURE: XR CHEST 2V INDICATIONS: ASPIRATION PNEUMONIA OF TT MIDDLE LOBE TECHNIQUE: 2 views of the chest were acquired. COMPARISON: [facility], CR, XR CHEST 2V, 08/01/2018, 18:41. [facility], CR, XR CHEST 1V, 08/06/2018, 9:23. FINDINGS: Surgical changes and devices: None. Lungs and pleura: Persistent medial bibasilar patchy consolidative opacities are present, increased since 08/06/18 and were present on prior study from 08/01/18.. No pleural effusions or pneumothorax. Mediastinum: Mediastinal contours are normal. Heart size is normal. Bones and chest wall: No suspicious bony abnormalities. Soft tissues appear unremarkable. IMPRESSION: Persistent ill-defined consolidative opacities involving the lung bases, without interval resolution. Therefore, this raises the possibility of underlying pulmonary nodule/neoplasm (versus recurrent or persistent pneumonia). As clinically warranted, further evaluation with CT chest could be performed, or at clinical discretion, continued surveillance with PA and lateral chest radiographs. Please correlate clinically. Dictated by: Librado Carrasco M.D. on 09/04/2018 at 11:41 Approved by: Librado Carrasco M.D. on 09/04/2018 at 11:44
== END ==
PROVIDERS: PCP Internal Medicine; Visit Provider Internal Medicine
DX: J69.0 Pneumonitis due to inhalation of food and vomit (principal)
CPT/HCPCS: 71046

== ENCOUNTER → 2018-09-11 09:39 | Outpatient (CLI) | payer MEDICARE, SELFPAY ==
[2018-09-11 10:53] LABS: INR 1.2 (0.9-1.3); Prothrombin Time 13.7 SECONDS (10.1-12.7)
[2018-09-11 11:11] LABS: Alanine Aminotransferase 19 IU/L (9-52); Albumin 3.7 g/dL (3.5-5.0); Albumin Globulin Ratio 1.3 (1.0-2.8); Alkaline Phosphatase 50 U/L (38-126); Aspartate Aminotransferase 27 IU/L (14-36); Bilirubin Total 0.8 mg/dL (0.2-1.3); Bilirubin Unconjugated 0.6 mg/dL (0.0-1.1); Gamma Glutamyl Transpeptidase 59 U/L (12-43); Globulin 2.8 g/dL (1.7-4.1); HEMOLYSIS < 15 (0-50); Total Protein 6.5 g/dL (6.3-8.2)
== END ==
PROVIDERS: PCP Internal Medicine; Visit Provider Nurse Practitioner
DX: K75.4 Autoimmune hepatitis (principal)
CPT/HCPCS: 36415; 80076; 82977; 85610

== ENCOUNTER → 2018-09-18 10:05 | Outpatient (CLI) | payer MEDICARE, SELFPAY ==
[2018-09-18 11:21] LABS: INR 1.2 (0.9-1.3); Prothrombin Time 13.8 SECONDS (10.1-12.7)
[2018-09-18 11:25] LABS: Alanine Aminotransferase 18 IU/L (9-52); Albumin 3.7 g/dL (3.5-5.0); Albumin Globulin Ratio 1.2 (1.0-2.8); Alkaline Phosphatase 52 U/L (38-126); Aspartate Aminotransferase 34 IU/L (14-36); Bilirubin Total 0.8 mg/dL (0.2-1.3); Bilirubin Unconjugated 0.6 mg/dL (0.0-1.1); Gamma Glutamyl Transpeptidase 63 U/L (12-43); Globulin 3.1 g/dL (1.7-4.1); HEMOLYSIS < 15 (0-50); Total Protein 6.8 g/dL (6.3-8.2)
== END ==
PROVIDERS: PCP Internal Medicine; Visit Provider Nurse Practitioner
DX: K75.4 Autoimmune hepatitis (principal)
CPT/HCPCS: 36415; 80076; 82977; 85610

== ENCOUNTER → 2018-09-25 09:27 | Outpatient (CLI) | payer MEDICARE, SELFPAY ==
--- NOTE | 2018-09-25 | DI.US.S_ITS ---
PROCEDURE: US ABDOMEN LIMITED INDICATIONS: OTHER CIRRHOSIS OF LIVER TECHNIQUE: Real-time focused scanning was performed of the abdomen, with image documentation. COMPARISON: [facility], MR, MR ABDOMEN WO/W CON, 02/13/2018, 11:46. FINDINGS: The portions of the pancreatic head are unremarkable. Pancreatic body and tail are obscured by overlying bowel gas. The liver demonstrates a mildly nodular contour with diffuse heterogeneous increased echogenicity. No convincing ultrasound correlates are identified within the liver for the multiple small foci of hypervascular enhancement (previously thought to represent regenerative or dysplastic nodules) seen on comparison MRI of the abdomen of 02/13/18. There is a 2.6 cm peripherally calcified gallstone with a resultant posterior acoustic shadowing. Asymmetries no vascularity on Doppler ultrasound. No florence-cholecystic fluid or gallbladder wall thickening identified. Negative sonographic St sign. Common bile duct measures 3 mm in greatest diameter, within normal limits. IMPRESSION: 1. No convincing ultrasound correlates are identified within the liver for the multiple small foci of hypervascular enhancement (previously thought to represent regenerative or dysplastic nodules) seen on comparison MRI of the abdomen of 02/13/18. Recommend follow-up MRI of the abdomen with and without contrast for further evaluation and to demonstrate stability/resolution of findings seen on comparison MRI of the abdomen of 02/13/18. 2. Cholelithiasis. 3. Heterogeneously increased echogenicity of the liver with mildly nodular contour, compatible with cirrhosis. Dictated by: Roshan Robbins M.D. on 09/25/2018 at 13:08 Approved by: Roshan Robbins M.D. on 09/25/2018 at 13:16
[2018-09-25 11:23] LABS: INR 1.2 (0.9-1.3); Prothrombin Time 13.6 SECONDS (10.1-12.7)
[2018-09-25 11:30] LABS: Alanine Aminotransferase 17 IU/L (9-52); Albumin 3.7 g/dL (3.5-5.0); Albumin Globulin Ratio 1.3 (1.0-2.8); Alkaline Phosphatase 56 U/L (38-126); Aspartate Aminotransferase 32 IU/L (14-36); Bilirubin Total 0.8 mg/dL (0.2-1.3); Bilirubin Unconjugated 0.6 mg/dL (0.0-1.1); Gamma Glutamyl Transpeptidase 62 U/L (12-43); Globulin 2.8 g/dL (1.7-4.1); HEMOLYSIS < 15 (0-50); Total Protein 6.5 g/dL (6.3-8.2)
== END ==
PROVIDERS: PCP Internal Medicine; Visit Provider Nurse Practitioner
DX: K74.69 Other cirrhosis of liver (principal); K80.20 Calculus of gallbladder without cholecystitis without obstruction; K75.4 Autoimmune hepatitis
CPT/HCPCS: 36415; 76705; 80076; 82977; 85610

== ENCOUNTER → 2018-10-08 15:13 | Outpatient (CLI) | payer MEDICARE, SELFPAY ==
[2018-10-08 18:08] LABS: Alanine Aminotransferase 23 IU/L (9-52); Albumin Globulin Ratio 1.4 (1.0-2.8); Alkaline Phosphatase 72 U/L (38-126); Aspartate Aminotransferase 35 IU/L (14-36); Bilirubin Total 0.7 mg/dL (0.2-1.3); Bilirubin Unconjugated 0.5 mg/dL (0.0-1.1); Gamma Glutamyl Transpeptidase 68 U/L (12-43); Globulin 2.9 g/dL (1.7-4.1); HEMOLYSIS < 15 (0-50); Total Protein 6.9 g/dL (6.3-8.2)
[2018-10-08 18:10] LABS: INR 1.2 (0.9-1.3); Prothrombin Time 13.8 SECONDS (10.1-12.7)
[2018-10-12 16:03] LABS: Hepatitis A Antibody Total Nonreactive (Nonreactive); Rubeola Measles IgG > 300.00 AU/mL (< 25.00)
== END ==
PROVIDERS: Family Provider Internal Medicine; PCP Internal Medicine; Visit Provider Nurse Practitioner
DX: K75.4 Autoimmune hepatitis (principal); Z71.89 Other specified counseling
CPT/HCPCS: 36415; 80076; 82977; 85610; 86708; 86765

== ENCOUNTER → 2018-11-12 10:46 | Outpatient (CLI) | payer MEDICARE, SELFPAY ==
--- NOTE | 2018-11-12 | DI.MG.S_ITS ---
BILATERAL DIGITAL SCREENING MAMMOGRAM 3D/2D WITH CAD: 11/12/2018 CLINICAL: Routine screening. Family history of breast cancer. Comparison is made to exams dated: 11/05/2017 mammogram, 11/09/2015 mammogram, and 11/19/2013 mammogram - [facility]. There are scattered fibroglandular elements in both breasts. Current study was also evaluated with a Computer Aided Detection (CAD) system. There are benign vascular calcifications in both breasts. No significant masses, calcifications, or other findings are seen in either breast. There has been no significant interval change. IMPRESSION: There is no mammographic evidence of malignancy. A 1 year screening mammogram is recommended. This exam was interpreted at Station ID: [id number]. NOTE: For mammograms, a report in lay terms will be sent to the patient. Approximately 15% of breast malignancies will not be visualized mammographically. In the management of a palpable breast mass, a negative mammogram must not discourage biopsy of a clinically suspicious lesion. Electronically Signed By: Violet murphy/jennifer:11/12/2018 12:07:31 letter sent: Normal Exam ACR BI-RADS Category 2: Benign Finding(s) [id number]
--- NOTE | 2018-11-12 | DI.MRI.S_ITS ---
PROCEDURE: MR ABDOMEN WO/W CON INDICATIONS: Autoimmune hepatitis TECHNIQUE: Coronal HASTE, axial 2D FLASH in- and [id number]; axial breath-hold T2 FSE. Dynamic axial VIBE during the administration of contrast; post-contrast coronal VIBE or 2D FLASH with fat saturation from the hepatic dome to the iliac crests. Optional diffusion weighted imaging and ADC may be performed. COMPARISON: [facility], abdominal ultrasound 09/25/2018 MR, MR ABDOMEN WO/W CON, 02/13/2018, 11:46. FINDINGS: Image quality: Excellent. Lung bases: No basal pleural effusions. Heart size is normal. Solid organs: The liver surface is nodular in keeping with cirrhosis. No significant hepatic steatosis. Liver is normal in size and enhancement. There are multiple small subcentimeter enhancing foci scattered throughout the liver. A few demonstrate intrinsic T1 hyperintensity. No corresponding washout, T2 signal, or restricted diffusion. These are most compatible with dysplastic or regenerative nodules. Gallbladder is nondistended. Large gallstone, (3/9). Biliary system is non dilated. Pancreas is normal in morphology. Spleen is normal in size and enhancement. No adrenal nodules. Kidneys are normal in size. No hydronephrosis. Right kidney exophytic intrinsic T1 hyperintense T2 hypointense cyst without enhancement is unchanged and most compatible with a hemorrhagic cyst. A few small benign cysts bilaterally. No solid mass. No hydronephrosis. Nodes and vessels: No retroperitoneal or mesenteric adenopathy by size criteria. Aorta and inferior vena cava are normal in size. Conventional and patent hepatic arterial anatomy. Portal vein and splenic vein are patent. Hepatic veins are patent. Bowel and peritoneum: Unenhanced bowel loops are normal in caliber. No ascites. Bones and soft tissues: Small fat-containing periumbilical hernia. Bone marrow is normal in overall signal. No suspicious enhancement or restricted diffusion. IMPRESSION: 1. Cirrhosis. No ascites. 2. No LR 4 or LR 5 lesion to suggest HCC. 3. Similar multiple subcentimeter enhancing foci scattered throughout the liver. LR 3. These most likely represent dysplastic or hyperplastic nodules. 4. Cholelithiasis. Dictated by: Lalit Andres M.D. on 11/12/2018 at 12:37 Approved by: Lalit Andres M.D. on 11/12/2018 at 12:52
== END ==
PROVIDERS: Family Provider Internal Medicine; PCP Internal Medicine; Referring Provider Nurse Practitioner; Visit Provider Internal Medicine
DX: Z12.31 Encounter for screening mammogram for malignant neoplasm of breast (principal); Z80.3 Family history of malignant neoplasm of breast; K75.4 Autoimmune hepatitis; K74.60 Unspecified cirrhosis of liver; K80.20 Calculus of gallbladder without cholecystitis without obstruction
CPT/HCPCS: 74183; 77063; 77067; A9579

== ENCOUNTER → 2018-12-10 09:07 | Outpatient (CLI) | payer MEDICARE, SELFPAY ==
[2018-12-10 10:55] LABS: Add Manual Diff / Slide Review NO; Basophils Absolute Auto 0 /uL (0-100); Basophils Percent Auto 0.6 % (0-2); Eosinophils Absolute Auto 200 /uL (0-450); Eosinophils Percent Auto 3.3 % (2-4); Hematocrit 43.1 % (36-46); Hemoglobin 14.6 g/dL (12.0-16.0); Lymphocytes Absolute Auto 1600 /uL (1100-4500); Lymphocytes Percent Auto 28.2 % (25-40); Mean Corpuscular HGB Conc 33.9 % (30-36); Mean Corpuscular Hemoglobin 32.2 PG (26-34); Mean Corpuscular Volume 94.9 fL (80-100); Monocytes Absolute Auto 500 /uL (0-900); Neutrophils Absolute Auto 3400 /uL (1500-7000); Neutrophils Percent Auto 59.9 % (50-75); Platelet Count 200 X10^3/uL (150-400); Red Blood Cell Count 4.54 X10^6/uL (4.0-5.2); Red Cell Distribution Width 12.4 % (11.6-14.8); White Blood Cell Count 5.7 X10^3/uL (4.5-11.0)
[2018-12-10 11:00] LABS: INR 1.2 (0.9-1.3); Prothrombin Time 14.5 SECONDS (10.1-12.7)
[2018-12-10 11:09] LABS: Alanine Aminotransferase 39 IU/L (<35); Albumin 3.9 g/dL (3.5-5.0); Albumin Globulin Ratio 1.3 (1.0-2.8); Alkaline Phosphatase 103 U/L (38-126); Aspartate Aminotransferase 65 IU/L (14-36); BUN Creatinine Ratio 18.8 (6-22); Bilirubin Total 0.7 mg/dL (0.2-1.3); Bilirubin Unconjugated 0.5 mg/dL (0.0-1.1); Blood Urea Nitrogen 15 mg/dL (7-17); Calcium 9.4 mg/dL (8.4-10.2); Carbon Dioxide 28 mmol/L (22-32); Chloride 104 mmol/L (98-107); Estimated Glomerular Filt Rate > 60.0 mL/min (>60); Globulin 2.9 g/dL (1.7-4.1); Glucose 111 mg/dL (80-110); HEMOLYSIS < 15 (0-50); Potassium 4.6 mmol/L (3.4-5.1); Sodium 140 mmol/L (137-145); Total Protein 6.8 g/dL (6.3-8.2)
== END ==
PROVIDERS: PCP Internal Medicine; Visit Provider Nurse Practitioner
DX: K75.4 Autoimmune hepatitis (principal)
CPT/HCPCS: 36415; 80048; 80076; 85025; 85610

== ENCOUNTER 2018-12-31 21:09 | Emergency (ER) | payer MEDICARE, SELFPAY ==
[2018-12-31 21:11] VITALS: BP 131/109; PULSE 104; RESP 25; TEMP 36.9; O2SAT 95
--- NOTE | 2018-12-31 21:14 | DI.RAD.S_ITS ---
PROCEDURE: XR CHEST 1V INDICATIONS: chest pain TECHNIQUE: One view of the chest was acquired. COMPARISON: [facility], CR, XR CHEST 2V, 09/04/2018, 10:07. FINDINGS: Surgical changes and devices: None. Lungs and pleura: Patchy opacities are present within the bases bilaterally, right greater than left. Mediastinum: Mediastinal contours appear normal. Heart size is mildly prominent. Bones and chest wall: No suspicious bony lesions. Overlying soft tissues appear unremarkable. IMPRESSION: Bibasilar opacities, right greater than left most suggestive of pneumonia. Recommend interval follow to document resolution is present underlying mass lesion. Dictated by: Samia Bower M.D. on 12/31/2018 at 21:34 Approved by: Samia Bower M.D. on 12/31/2018 at 21:34
[2018-12-31 21:19] VITALS: BP 122/82; PULSE 96; RESP 30; TEMP 36.6; O2SAT 94
[2018-12-31 21:41] LABS: Add Manual Diff / Slide Review NO; Basophils Absolute Auto 0 /uL (0-100); Basophils Percent Auto 0.6 % (0-2); Eosinophils Absolute Auto 100 /uL (0-450); Eosinophils Percent Auto 1.7 % (2-4); Hematocrit 44.5 % (36-46); Hemoglobin 15.2 g/dL (12.0-16.0); INR 1.2 (0.9-1.3); Lymphocytes Absolute Auto 2200 /uL (1100-4500); Lymphocytes Percent Auto 28.3 % (25-40); Mean Corpuscular HGB Conc 34.2 % (30-36); Mean Corpuscular Volume 93.5 fL (80-100); Monocytes Absolute Auto 600 /uL (0-900); Monocytes Percent Auto 7.2 % (3-14); Neutrophils Absolute Auto 4900 /uL (1500-7000); Neutrophils Percent Auto 62.2 % (50-75); Platelet Count 206 X10^3/uL (150-400); Prothrombin Time 13.6 SECONDS (10.1-12.7); Red Blood Cell Count 4.76 X10^6/uL (4.0-5.2); Red Cell Distribution Width 13.1 % (11.6-14.8); White Blood Cell Count 7.8 X10^3/uL (4.5-11.0)
[2018-12-31 21:44] LABS: PTT Partial Thromboplastin Tim 44 SECONDS (26.4-36.2)
[2018-12-31 21:47] LABS: Alanine Aminotransferase 55 IU/L (<35); Albumin 4.7 g/dL (3.5-5.0); Albumin Globulin Ratio 1.3 (1.0-2.8); Alkaline Phosphatase 149 U/L (38-126); Aspartate Aminotransferase 83 IU/L (14-36); BUN Creatinine Ratio 22.2 (6-22); Bilirubin Total 0.9 mg/dL (0.2-1.3); Blood Urea Nitrogen 20 mg/dL (7-17); Calcium 9.8 mg/dL (8.4-10.2); Carbon Dioxide 27 mmol/L (22-32); Chloride 103 mmol/L (98-107); Creatine Kinase 46 U/L (30-135); Estimated Glomerular Filt Rate > 60.0 mL/min (>60); Globulin 3.7 g/dL (1.7-4.1); Glucose 152 mg/dL (80-110); HEMOLYSIS 16 (0-50); Lipase 244 U/L (23-300); Potassium 4.4 mmol/L (3.4-5.1); Sodium 138 mmol/L (137-145); Total Protein 8.4 g/dL (6.3-8.2)
[2018-12-31] MEDS: ASPIRIN 81 MG CHEW TAB 324 MG PO (21:56)
[2018-12-31 21:58] LABS: Troponin I < 0.012 ng/mL (0.01-0.034)
--- NOTE | 2018-12-31 22:11 | ED.CHESTPAIN ---
HPI - Chest Pain General Chief Complaint: Chest Pain Stated Complaint: Chest Pain Time Seen by Provider: 12/31/18 21:52 Source: patient Mode of arrival: Wheelchair Limitations: no limitations History of Present Illness HPI narrative: This is a 78-year-old female comes emergency department with complaint of diaphragmatic pain patient states started about 6:00 a.m. this evening. She felt like her bra was tight at about 6:00 a.m. this evening so she took it off. She felt just a discomfort but it has been slowly increasing as the night goes by. She describes it kind of across in a bandlike sensation the epigastric diaphragm area. But it has since started to localize more to the right upper quadrant in radiate a little bit to her right clavicle. Patient states movement and deep breath due seems to make it worse. She has not had similar symptoms in the past. She denies fevers, she denies any cold cough or congestion she denies any shortness of breath she denies any nausea, no vomiting, no diarrhea or constipation. No changes with urination. No rashes or skin changes. She does have a history of autoimmune hepatitis and is on azathioprine. She also takes losartan for hypertension, statin and thyroid medication. She has had a hysterectomy but still has her ovaries, a TA squint procedure for her eyes as a child any D and C for AB, patient states she is allergic to sulfa gets pulmonary fusions and cough, denies tobacco, alcohol or illicit. She sees Katie Pelaez is her primary care and Dr. García as conference assistant at [facility]. Related Data Home Medications Medication Instructions Recorded Confirmed albuterol sulfate [ProAir HFA] 2 puff INHALATION Q6H PRN 08/06/18 08/06/18 alendronate 70 mg PO QWEEK 08/06/18 08/06/18 atorvastatin 20 mg PO DAILY 08/06/18 08/06/18 azathioprine 100 mg PO DAILY 08/06/18 08/06/18 azithromycin 250 mg PO DAILY 08/06/18 08/06/18 levothyroxine 75 mcg PO DAILY 08/06/18 08/06/18 losartan 12.5 mg PO DAILY 08/06/18 08/06/18 prednisone 7.5 mg PO DAILY 08/06/18 08/06/18 prednisone 10 mg PO DAILY 08/06/18 08/06/18 spironolactone 25 mg PO DAILY 08/06/18 08/06/18 Previous Rx's Medication Instructions Recorded benzonatate 100 mg capsule 100 mg PO BID PRN #20 cap 08/03/18 benzonatate [Tessalon Perles] 100 mg PO TID PRN #20 cap 08/06/18 hydrocodone-acetaminophen 5 ml PO Q4-6H PRN #200 ml 08/06/18 ondansetron 4 mg PO Q6H PRN #20 tab 08/06/18 meloxicam 7.5 mg PO DAILY PRN #10 tab 01/01/19 Allergies Allergy/AdvReac Type Severity Reaction Status Date / Time Sulfa (Sulfonamide Allergy Verified 08/06/18 08:55 Antibiotics) Review of Systems Constitutional Constitutional: Denies chills, Denies fever(s), Denies lethargy and Denies weakness Cardiovascular Cardiovascular: Reports chest pain (Epigastric diaphragm), Denies diaphoresis, Denies rapid heart rate, Denies irregular heart rhythm, Denies lightheadedness, Reports radiating jaw, neck or arm pain (Right clavicle), Denies palpitations, Denies dyspnea, Denies dyspnea on exertion and Denies orthopnea Respiratory Respiratory: Denies change in phlegm color, Denies chest congestion, Denies cough, Denies hemoptysis, Denies excessive phlegm production, Reports pain on inspiration, Denies dyspnea, Denies dyspnea on exertion and Denies wheezing Gastrointestinal Gastrointestinal: Reports abdominal pain, Denies melena, Denies hematochezia, Denies change in bowel habits, Denies constipation, Denies diarrhea, Denies nausea and Denies vomiting Genitourinary Genitourinary: Denies hematuria, Denies dysuria, Denies flank pain, Denies urinary incontinence, Denies urinary hesitancy and Denies urinary urgency Musculoskeletal Musculoskeletal: Denies back pain, Denies numbness and Denies tingling Integumentary/Breasts Skin/Breast: Denies rash Neurologic Neurologic: Denies numbness, Denies tingling and Denies weakness Endocrine Endocrine: Denies palpitations Allergic/Immunologic Allergic/Immunologic: Denies wheezing Patient History Medical History (Updated 01/01/19 @ 01:00 by Rosa Anaya DO) Autoimmune hepatitis treated with steroids (Acute) Hypercholesteremia (Acute) Hypertension (Acute) Hypothyroid (Acute) Osteoporosis (Acute) Surgical History H/O: hysterectomy (Acute) Social History Smoking Status: Former smoker alcohol intake frequency: 0-2 drinks per day Substance Use Type: does not use Exam Narrative Exam Narrative: GENERAL: Alert and oriented x three, elderly well-appearing female in moderate distress HEENT: Head normocephalic, atraumatic, EOMI, pupils reactive, face symmetric, moist mucous membranes NECK: Supple, full range of motion CARDIOVASCULAR: Regular rate and rhythm without murmurs, rubs or gallops. RESPIRATORY: Breath sounds equal bilaterally, no wheezes rales or rhonchi. No tachypnea, no accessory muscle use. ABDOMEN: Soft, positive for right upper quadrant tenderness but more in the right rib cage chest. Patient also has some epigastric tenderness. Normoactive bowel sounds all 4 quadrants. No guarding or rebound, rigidity, no mass. : No CVA tenderness EXTREMITIES: Normal range of motion, no clubbing or edema. Neurovascularly intact NEUROLOGICAL: Cranial nerves II through XII grossly intact. Moving all extremities SKIN: Warm, dry, no petechiae, no rashes or lesions. vesicles or erythema on the right chest or abdomen. Initial Vital Signs Initial Vital Signs: Vital Signs Temperature 98.5 F 12/31/18 21:11 Pulse Rate 104 H 12/31/18 21:11 Respiratory Rate 25 H 12/31/18 21:11 Blood Pressure 131/109 H 12/31/18 21:11 Pulse Oximetry 95 12/31/18 21:11 Course Orders Ordered: ED Orders 12/31/18 21:14 XR chest 1V Stat EKG-12 Lead Stat 12/31/18 21:17 Complete Blood Count AUTO DIFF Stat Comprehensive Metabolic Panel Stat Lipase Stat Partial Thromboplastin Time Stat Prothrombin Time INR Stat Troponin & CK Cardiac Panel Stat 12/31/18 22:30 US abdomen limited Stat 12/31/18 23:20 CT angio chest abdomen pelvis Stat 12/31/18 23:43 Troponin & CK Cardiac Panel Stat Discontinued Medications Aspirin (Aspirin Chew) 324 mg PO NOW ONE Stop: 12/31/18 21:57 Last Admin: 12/31/18 21:56 Dose: 324 mg Documented by: SHANNONL Sodium Chloride (Normal Saline 0.9%) 1,000 mls @ 1,000 mls/hr IV BOLUS ONE Stop: 01/01/19 00:21 Last Admin: 12/31/18 23:29 Dose: 1,000 mls/hr Documented by: ROBERTFARL Ketorolac Tromethamine (Toradol) 15 mg IV NOW ONE Stop: 12/31/18 22:31 Last Admin: 12/31/18 22:35 Dose: 15 mg Documented by: KIRILL Nitroglycerin (Nitrostat) 0.4 mg SL NOW ONE Stop: 12/31/18 22:07 Last Admin: 12/31/18 22:35 Dose: Not Given Documented by: KIRILL Vital Signs Vital signs: Vital Signs - 8 hr 12/31/18 21:11 12/31/18 21:19 12/31/18 22:30 Temperature 98.5 F 97.8 F Pulse Rate 104 H 96 H 89 Respiratory Rate 25 H 30 H 22 Blood Pressure 131/109 H Blood Pressure [Left Arm] 122/82 120/78 Pulse Oximetry 95 94 92 12/31/18 23:30 01/01/19 00:56 Temperature Pulse Rate 89 87 Respiratory Rate 20 19 Blood Pressure Blood Pressure [Left Arm] 99/75 124/78 Pulse Oximetry 94 96 MDM - Chest Pain Lab Data Attestation: I reviewed the patient's lab results. Result diagrams: 12/31/18 21:17 12/31/18 21:17 Labs: Lab Results 12/31/18 12/31/18 12/31/18 Range/Units 21:17 21:17 21:17 WBC 7.8 (4.5-11.0) X10^3/uL RBC 4.76 (4.0-5.2) X10^6/uL Hgb 15.2 (12.0-16.0) g/dL Hct 44.5 (36-46) % MCV 93.5 (80-100) fL MCH 32.0 (26-34) PG MCHC 34.2 (30-36) % RDW 13.1 (11.6-14.8) % Plt Count 206 (150-400) X10^3/uL Neut % (Auto) 62.2 (50-75) % Lymph % (Auto) 28.3 (25-40) % Garza % (Auto) 7.2 (3-14) % Eos % (Auto) 1.7 L (2-4) % Baso % (Auto) 0.6 (0-2) % Neut # (Auto) 4900 (9678-1066) /uL Lymph # (Auto) 2200 (9068-4595) /uL Garza # (Auto) 600 (0-900) /uL Eos # (Auto) 100 (0-450) /uL Baso # (Auto) 0 (0-100) /uL PT 13.6 H (10.1-12.7) SECONDS INR 1.2 (0.9-1.3) APTT 44 H (26.4-36.2) SECONDS Sodium 138 (137-145) mmol/L Potassium 4.4 (3.4-5.1) mmol/L Chloride 103 (98-107) mmol/L Carbon Dioxide 27 (22-32) mmol/L BUN 20 H (7-17) mg/dL Creatinine 0.90 (0.52-1.04) mg/dL Estimated GFR > 60.0 (>60) mL/min BUN/Creatinine Ratio 22.2 H (6-22) Glucose 152 H (80-110) mg/dL Calcium 9.8 (8.4-10.2) mg/dL Total Bilirubin 0.9 (0.2-1.3) mg/dL AST 83 H (14-36) IU/L ALT 55 H (<35) IU/L Alkaline Phosphatase 149 H (38-126) U/L Total Creatine Kinase 46 (30-135) U/L CK-MB (CK-2) TNP CK-MB (CK-2) Rel Index TNP Troponin I < 0.012 (0.01-0.034) ng/mL Total Protein 8.4 H (6.3-8.2) g/dL Albumin 4.7 (3.5-5.0) g/dL Globulin 3.7 (1.7-4.1) g/dL Albumin/Globulin Ratio 1.3 (1.0-2.8) Lipase 244 (23-300) U/L 01/01/19 Range/Units 00:05 WBC (4.5-11.0) X10^3/uL RBC (4.0-5.2) X10^6/uL Hgb (12.0-16.0) g/dL Hct (36-46) % MCV (80-100) fL MCH (26-34) PG MCHC (30-36) % RDW (11.6-14.8) % Plt Count (150-400) X10^3/uL Neut % (Auto) (50-75) % Lymph % (Auto) (25-40) % Garza % (Auto) (3-14) % Eos % (Auto) (2-4) % Baso % (Auto) (0-2) % Neut # (Auto) (5552-1051) /uL Lymph # (Auto) (7207-5508) /uL Garza # (Auto) (0-900) /uL Eos # (Auto) (0-450) /uL Baso # (Auto) (0-100) /uL PT (10.1-12.7) SECONDS INR (0.9-1.3) APTT (26.4-36.2) SECONDS Sodium (137-145) mmol/L Potassium (3.4-5.1) mmol/L Chloride (98-107) mmol/L Carbon Dioxide (22-32) mmol/L BUN (7-17) mg/dL Creatinine (0.52-1.04) mg/dL Estimated GFR (>60) mL/min BUN/Creatinine Ratio (6-22) Glucose (80-110) mg/dL Calcium (8.4-10.2) mg/dL Total Bilirubin (0.2-1.3) mg/dL AST (14-36) IU/L ALT (<35) IU/L Alkaline Phosphatase (38-126) U/L Total Creatine Kinase 36 (30-135) U/L CK-MB (CK-2) TNP CK-MB (CK-2) Rel Index TNP Troponin I < 0.012 (0.01-0.034) ng/mL Total Protein (6.3-8.2) g/dL Albumin (3.5-5.0) g/dL Globulin (1.7-4.1) g/dL Albumin/Globulin Ratio (1.0-2.8) Lipase (23-300) U/L Imaging Data Chest x-ray: Radiologist's impression: [place] [id number] [place] [id number] XRay Report Signed Patient: Felecia Chapin LMR#: [id number] : 3Acct:[id number] Age/Sex: 78 / FDate of Service: 12/31/18 Loc: ED Accession Number: [id number] Procedure: XR chest 1V Ordering Provider: Rosa Anaya D.O. PROCEDURE: XR CHEST 1V INDICATIONS: chest pain TECHNIQUE: One view of the chest was acquired. COMPARISON: [facility], CR, XR CHEST 2V, 09/04/2018, 10:07. FINDINGS: Surgical changes and devices: None. Lungs and pleura: Patchy opacities are present within the bases bilaterally, right greater than left. Mediastinum: Mediastinal contours appear normal. Heart size is mildly prominent. Bones and chest wall: No suspicious bony lesions. Overlying soft tissues appear unremarkable. IMPRESSION: Bibasilar opacities, right greater than left most suggestive of pneumonia. Recommend interval follow to document resolution is present underlying mass lesion. Dictated by: Samia Bower M.D. on 12/31/2018 at 21:34 Approved by: Samia Bower M.D. on 12/31/2018 at 21:34 CTA chest/abd/pelvis: Radiologist's impression: CT chest pulmonary artery diameters large measuring [address] abdomen the liver is wavy contour suspicious for cirrhosis. Multifocal low level areas of enhancement are suspicious for generating nodules. Gallbladder is normal in size and contains 1 large gallstone. No ductal dilation. Abdominal aortic caliber is normal with no dissection. There single bilateral renal arteries with symmetric enhancement of both kidneys. ECG Data Attestation: I personally reviewed and interpreted this ECG as follows: Prior ECG tracings: available for review Interpretation: Sinus rhythm the rate of 97 P are 167 QRS of 114 and QTC of 413. Patient has nonspecific change. EKG appears similar to 08/06/2018. No ST elevation. MDM Narrative Medical decision making narrative: Patient comes in with complaint that sounds epigastric in nature bandlike pressure that has localized more to the right upper quadrant and radiates to the clavicle patient states she has known gallstones. She is more tender kind of right upper quadrant but even into the chest. There is no signs of shingles or rash. patient's symptoms improved with Toradol. Her labs show some elevation in her. Patient states that this is been chronically the situation. She does follow with a conference assistant for her autoimmune hepatitis troponin is negative x2 with negative EKG. Lipase is not elevated. Bilirubin is normal, CTA shows a large gallstone and was 2 cm without signs of cholecystitis. Patient has cirrhotic changes and states that there is potential for suspicious pattern for multiple rib generating nodules. Patient does get MRIs q.3 months and is regularly surveillance by her conference assistant. Patient and I discussed her findings. She feels much improved and would like to return home we discussed that there is potential for recurrent symptoms and recommended follow-up with General surgery for her gallbladder and gallstone. Patient is comfortable with the plan. Discharge Plan Departure Patient Disposition: Home Clinical Impression: Gallstone Discharge Date/Time: 01/01/19 01:11 Instructions: DI for Gallstones Activity Restrictions/Additional Instructions: Follow up with primary care in the next week for recheck. You have a very large gallstone on your imaging, which you are aware of. You may benefit from having your gallbladder removed and I would recommend discussion with a surgeon. Below is referal to Dr. Giron or you can discuss with your conference assistant for recommendations. You may continue home medications as prescribed. You may take meloxicam 1 tablet twice daily as needed for pain. If you take this medication do not take ibuprofen with it. Your prescription was sent to [facility] in [place]. Return to the emergency department for fevers greater than 100.4 F, new or worsening abdominal, chest pain or flank pain, persistent vomiting, lightheadedness or passing-out, black or bloody stools, new shortness of breath or other new or concerning symptoms Prescriptions: New meloxicam 7.5 mg tablet 7.5 mg PO DAILY PRN (Reason: pain) Qty: 10 RF: 0 No Action benzonatate [Tessalon Perles] 100 mg capsule 100 mg PO BID PRN (Reason: cough) Qty: 20 RF: 0 prednisone 10 mg tablet 10 mg PO DAILY RF: 0 atorvastatin 20 mg tablet 20 mg PO DAILY RF: 0 azithromycin 250 mg tablet 250 mg PO DAILY RF: 0 alendronate 70 mg tablet 70 mg PO QWEEK RF: 0 prednisone 5 mg tablet 7.5 mg PO DAILY RF: 0 azathioprine 50 mg tablet 100 mg PO DAILY RF: 0 spironolactone 25 mg tablet 25 mg PO DAILY RF: 0 levothyroxine 75 mcg tablet 75 mcg PO DAILY RF: 0 losartan 25 mg tablet 12.5 mg PO DAILY RF: 0 albuterol sulfate [ProAir HFA] 90 mcg/actuation HFA aerosol inhaler 2 puff inhalation Q6H PRN (Reason: Shortness Of Breath) RF: 0 ondansetron 4 mg tablet,disintegrating 4 mg PO Q6H PRN (Reason: nausea and vomiting) Qty: 20 RF: 0 benzonatate [Tessalon Perles] 100 mg capsule 100 mg PO TID PRN (Reason: cough) Qty: 20 RF: 0 hydrocodone-acetaminophen 7.5-325 mg/15 mL solution 5 ml PO Q4-6H PRN (Reason: pain) Qty: 200 RF: 0 Referrals: Katie Pelaez MD [Primary Care Provider] -
[2018-12-31 22:30] VITALS: BP 120/78; PULSE 89; RESP 22; O2SAT 92
--- NOTE | 2018-12-31 22:30 | DI.US.S_ITS ---
PROCEDURE: US ABDOMEN LIMITED INDICATIONS: RUQ pain with palpation, epigastric TECHNIQUE: Real-time focused scanning was performed of the abdomen, with image documentation. COMPARISON: None. FINDINGS: Gallbladder is poorly visualized due to bowel gas. Gallstone is identified. Common bile duct is not visualized. Pancreas is not visualized. Right kidney is nonvisualized. IMPRESSION: Nondiagnostic study secondary to large amount of bowel gas. Gallbladder cannot be evaluated and cholecystitis is not excluded. Recommend repeat imaging after patient has fasted for greater than 6 hours. Dictated by: Meagan Rose MD, PhD on 01/01/2019 at 8:28 Approved by: Meagan Rose MD, PhD on 01/01/2019 at 8:29
[2018-12-31] MEDS: KETOROLAC 60 MG/2 ML VIAL 15 MG IV (22:35)
--- NOTE | 2018-12-31 23:20 | DI.CT.S_ITS ---
PROCEDURE: CT ANGIO CHEST ABDOMEN PELVIS INDICATIONS: Right upper quadrant and chest pain, radiating to clavicle, persistent lung opacities. TECHNIQUE: Precontrast 5 mm thick sections acquired from the lung apices to the iliac crests. After the administration of intravenous contrast, 2.5 mm thick sections again acquired from the lung apices to the iliac crests. Maximum intensity projection (MIP) oblique sagittal and coronal reformats were then acquired. For radiation dose reduction, the following was used: automated exposure control. COMPARISON: [facility], MR, MR ABDOMEN WO/W CON, 11/12/2018, 11:19. FINDINGS: Image quality: Excellent. AORTA and its attachments: Borderline aneurysmal dilatation of the aortic root, measuring 4.1 cm. Otherwise normal caliber thoracic and abdominal aorta. No dissection. Classic 3 vessel arch anatomy. Great vessel origins are widely patent. Celiac, SMA, SHARI, and bilateral renal arteries are widely patent. Common iliacs and external iliacs and common femorals are widely patent. There is iliac tortuosity. CHEST: Lungs and pleura: Minimal bibasilar atelectasis. Benign-appearing pleural based nodular opacity along the major fissure of the left lung measuring 0.7 x 0.4 cm. No pleural effusions or pneumothorax. No pulmonary emboli. Central and peripheral airways are patent and normal in caliber. Mediastinum: Mild cardiomegaly. Advanced coronary artery calcifications. No pericardial effusion. No mediastinal or hilar adenopathy by size criteria. The central pulmonary arteries are dilated. The right main pulmonary artery measures 3.7 cm. This is consistent with pulmonary arterial hypertension.. Esophagus is normal in caliber. No hiatal hernias. Bones and chest wall: No axillary adenopathy by size criteria. Thyroid gland is somewhat heterogeneous. No suspicious bony lesions. No vertebral body compression fractures. ABDOMEN: Vasculature: Celiac trunk and mesenteric arteries are patent. Renal arteries are also patent. Solid organs: Diffusely cirrhotic liver with multiple areas of nodular enhancement. Gallbladder contains a large calcified gallstone. There is no gallbladder wall thickening or fluid around the gallbladder.. Biliary system is non dilated. Pancreas enhances normally. Spleen is normal in size and enhancement. No adrenal nodules. Both kidneys are normal in size and enhancement, without hydronephrosis. Peritoneum and bowel: No free fluid or air. Bowel loops are normal in caliber and wall thickness. Nodes and vessels: No retroperitoneal or mesenteric adenopathy by size criteria. Inferior vena cava is normal in morphology. Retroaortic left renal vein incidentally noted. Miscellaneous: No ventral hernias. PELVIS: Genitourinary: Bladder wall thickness is normal. Miscellaneous: No inguinal hernias or adenopathy. No ventral hernias. Uterus is surgically absent. Bones: No suspicious bony lesions. No vertebral body compression fractures. IMPRESSION: 1. 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 Otherwise unremarkable thoracic and abdominal aorta and its attachments. 2. No pulmonary emboli. 3. Pulmonary arterial hypertension. 4. Cardiomegaly, coronary artery disease 5. Cirrhosis with numerous areas of nodular enhancement, recently worked up with dynamic liver MRI. 6. Cholelithiasis. Comment: Final report is concordant with preliminary interpretation provided by [facility]. Dictated by: Klaus Greer M.D. on 01/01/2019 at 7:53 Approved by: Klaus Greer M.D. on 01/01/2019 at 8:09
[2018-12-31] MEDS: SODIUM CHLORIDE 0.9% 1,000 ML 1000 ML IV (23:29)
[2018-12-31 23:30] VITALS: BP 99/75; PULSE 89; RESP 20; O2SAT 94
[2019-01-01 00:19] LABS: Creatine Kinase 36 U/L (30-135)
[2019-01-01 00:32] LABS: Troponin I < 0.012 ng/mL (0.01-0.034)
[2019-01-01 00:56] VITALS: BP 124/78; PULSE 87; RESP 19; O2SAT 96
== END 2019-01-01 01:11 | disposition home or self-care (01) ==
PROVIDERS: Emergency Provider Emergency Medicine; Family Provider Internal Medicine; PCP Internal Medicine
DX: K80.80 Other cholelithiasis without obstruction (principal); R10.9 Unspecified abdominal pain; R07.9 Chest pain, unspecified
CPT/HCPCS: 36415; 71045; 71275; 74174; 76705; 80053; 82550; 83690; 84484; 85025; 85610; 85730; 93005; 96374; 99283; 99285; J1885; Q9967

== ENCOUNTER → 2019-04-09 13:00 | Outpatient (CLI) | payer MEDICARE, SELFPAY ==
[2019-04-09 14:34] LABS: Add Manual Diff / Slide Review NO; Basophils Absolute Auto 0 /uL (0-100); Basophils Percent Auto 0.6 % (0-2); Eosinophils Absolute Auto 100 /uL (0-450); Eosinophils Percent Auto 1.2 % (2-4); Hematocrit 42.7 % (36-46); Hemoglobin 14.8 g/dL (12.0-16.0); Lymphocytes Absolute Auto 1500 /uL (1100-4500); Lymphocytes Percent Auto 29.3 % (25-40); Mean Corpuscular HGB Conc 34.8 % (30-36); Mean Corpuscular Hemoglobin 33.3 PG (26-34); Mean Corpuscular Volume 95.9 fL (80-100); Monocytes Absolute Auto 500 /uL (0-900); Monocytes Percent Auto 9.2 % (3-14); Neutrophils Absolute Auto 3000 /uL (1500-7000); Neutrophils Percent Auto 59.7 % (50-75); Platelet Count 179 X10^3/uL (150-400); Red Blood Cell Count 4.45 X10^6/uL (4.0-5.2)
[2019-04-09 14:54] LABS: INR 1.2 (0.9-1.3); Prothrombin Time 14.1 SECONDS (10.1-12.7)
[2019-04-09 15:06] LABS: Alanine Aminotransferase 99 IU/L (<35); Albumin 4.1 g/dL (3.5-5.0); Albumin Globulin Ratio 0.9 (1.0-2.8); Alkaline Phosphatase 186 U/L (38-126); Aspartate Aminotransferase 121 IU/L (14-36); BUN Creatinine Ratio 17.3 (6-22); Bilirubin Total 0.6 mg/dL (0.2-1.3); Bilirubin Unconjugated 0.4 mg/dL (0.0-1.1); Blood Urea Nitrogen 19 mg/dL (7-17); Calcium 9.6 mg/dL (8.4-10.2); Carbon Dioxide 29 mmol/L (22-32); Chloride 102 mmol/L (98-107); Estimated Glomerular Filt Rate 48.3 mL/min (>60); Globulin 4.5 g/dL (1.7-4.1); Glucose 140 mg/dL (80-110); HEMOLYSIS < 15 (0-50); Sodium 141 mmol/L (137-145); Total Protein 8.6 g/dL (6.3-8.2)
== END ==
PROVIDERS: Family Provider Internal Medicine; PCP Internal Medicine; Referring Provider Nurse Practitioner; Visit Provider Nurse Practitioner
DX: K75.4 Autoimmune hepatitis (principal); K74.69 Other cirrhosis of liver
CPT/HCPCS: 36415; 80048; 80076; 82105; 85025; 85610

== ENCOUNTER → 2019-05-06 10:31 | Outpatient (CLI) | payer MEDICARE, SELFPAY ==
[2019-05-06 11:09] LABS: Add Manual Diff / Slide Review NO; Basophils Absolute Auto 0 /uL (0-100); Basophils Percent Auto 0.6 % (0-2); Eosinophils Absolute Auto 100 /uL (0-450); Eosinophils Percent Auto 1.5 % (2-4); Hematocrit 43.4 % (36-46); Hemoglobin 14.8 g/dL (12.0-16.0); Lymphocytes Absolute Auto 2100 /uL (1100-4500); Lymphocytes Percent Auto 34.9 % (25-40); Mean Corpuscular Hemoglobin 32.3 PG (26-34); Mean Corpuscular Volume 94.8 fL (80-100); Monocytes Absolute Auto 600 /uL (0-900); Neutrophils Absolute Auto 3200 /uL (1500-7000); Platelet Count 183 X10^3/uL (150-400); Red Blood Cell Count 4.58 X10^6/uL (4.0-5.2); Red Cell Distribution Width 13.5 % (11.6-14.8)
[2019-05-06 11:16] LABS: INR 1.2 (0.9-1.3); Prothrombin Time 13.7 SECONDS (10.1-12.7)
[2019-05-06 11:31] LABS: Alanine Aminotransferase 108 IU/L (<35); Albumin 3.9 g/dL (3.5-5.0); Albumin Globulin Ratio 0.8 (1.0-2.8); Alkaline Phosphatase 183 U/L (38-126); Aspartate Aminotransferase 119 IU/L (14-36); BUN Creatinine Ratio 23.6 (6-22); Bilirubin Total 0.5 mg/dL (0.2-1.3); Bilirubin Unconjugated 0.4 mg/dL (0.0-1.1); Blood Urea Nitrogen 21 mg/dL (7-17); Calcium 9.5 mg/dL (8.4-10.2); Carbon Dioxide 27 mmol/L (22-32); Chloride 106 mmol/L (98-107); Estimated Glomerular Filt Rate > 60.0 mL/min (>60); Globulin 4.7 g/dL (1.7-4.1); Glucose 87 mg/dL (80-110); HEMOLYSIS < 15 (0-50); Potassium 4.5 mmol/L (3.4-5.1); Sodium 139 mmol/L (137-145); Total Protein 8.6 g/dL (6.3-8.2)
== END ==
PROVIDERS: Family Provider Internal Medicine; PCP Internal Medicine; Referring Provider Nurse Practitioner; Visit Provider Nurse Practitioner
DX: K75.4 Autoimmune hepatitis (principal)
CPT/HCPCS: 36415; 80048; 80076; 85025; 85610

== ENCOUNTER → 2019-05-15 11:45 | Outpatient (CLI) | payer MEDICARE, SELFPAY ==
[2019-05-15 12:12] LABS: Add Manual Diff / Slide Review NO; Basophils Absolute Auto 0 /uL (0-100); Basophils Percent Auto 0.7 % (0-2); Eosinophils Absolute Auto 100 /uL (0-450); Eosinophils Percent Auto 1.3 % (2-4); Hematocrit 43.2 % (36-46); Hemoglobin 14.5 g/dL (12.0-16.0); Lymphocytes Absolute Auto 1700 /uL (1100-4500); Lymphocytes Percent Auto 33.1 % (25-40); Mean Corpuscular HGB Conc 33.6 % (30-36); Mean Corpuscular Hemoglobin 31.9 PG (26-34); Mean Corpuscular Volume 95.1 fL (80-100); Monocytes Absolute Auto 600 /uL (0-900); Monocytes Percent Auto 10.6 % (3-14); Neutrophils Absolute Auto 2900 /uL (1500-7000); Neutrophils Percent Auto 54.3 % (50-75); Platelet Count 179 X10^3/uL (150-400); Red Blood Cell Count 4.54 X10^6/uL (4.0-5.2); Red Cell Distribution Width 13.4 % (11.6-14.8); White Blood Cell Count 5.3 X10^3/uL (4.5-11.0)
[2019-05-15 12:20] LABS: INR 1.2 (0.9-1.3); Prothrombin Time 14.4 SECONDS (10.1-12.7)
[2019-05-15 12:27] LABS: Alanine Aminotransferase 109 IU/L (<35); Albumin 4.2 g/dL (3.5-5.0); Albumin Globulin Ratio 0.9 (1.0-2.8); Alkaline Phosphatase 191 U/L (38-126); Aspartate Aminotransferase 114 IU/L (14-36); BUN Creatinine Ratio 23.2 (6-22); Bilirubin Total 0.6 mg/dL (0.2-1.3); Bilirubin Unconjugated 0.4 mg/dL (0.0-1.1); Blood Urea Nitrogen 19 mg/dL (7-17); Calcium 9.6 mg/dL (8.4-10.2); Carbon Dioxide 28 mmol/L (22-32); Chloride 105 mmol/L (98-107); Estimated Glomerular Filt Rate > 60.0 mL/min (>60); Globulin 4.6 g/dL (1.7-4.1); Glucose 123 mg/dL (80-110); HEMOLYSIS < 15 (0-50); Potassium 4.9 mmol/L (3.4-5.1); Sodium 139 mmol/L (137-145); Total Protein 8.8 g/dL (6.3-8.2)
== END ==
PROVIDERS: Family Provider Internal Medicine; PCP Internal Medicine; Referring Provider Nurse Practitioner; Visit Provider Nurse Practitioner
DX: K75.4 Autoimmune hepatitis (principal)
CPT/HCPCS: 36415; 80048; 80076; 85025; 85610

== ENCOUNTER → 2019-05-28 11:56 | Outpatient (CLI) | payer MEDICARE, SELFPAY ==
[2019-05-28 13:12] LABS: Add Manual Diff / Slide Review NO; Basophils Absolute Auto 0 /uL (0-100); Basophils Percent Auto 0.4 % (0-2); Eosinophils Absolute Auto 100 /uL (0-450); Eosinophils Percent Auto 1.7 % (2-4); Hematocrit 43.3 % (36-46); Hemoglobin 14.7 g/dL (12.0-16.0); INR 1.2 (0.9-1.3); Lymphocytes Absolute Auto 2100 /uL (1100-4500); Lymphocytes Percent Auto 35.5 % (25-40); Mean Corpuscular Hemoglobin 32.3 PG (26-34); Mean Corpuscular Volume 95.2 fL (80-100); Monocytes Absolute Auto 600 /uL (0-900); Neutrophils Absolute Auto 3100 /uL (1500-7000); Neutrophils Percent Auto 52.4 % (50-75); Platelet Count 180 X10^3/uL (150-400); Prothrombin Time 13.8 SECONDS (10.1-12.7); Red Blood Cell Count 4.55 X10^6/uL (4.0-5.2); Red Cell Distribution Width 13.1 % (11.6-14.8); White Blood Cell Count 5.9 X10^3/uL (4.5-11.0)
[2019-05-28 13:19] LABS: Alanine Aminotransferase 92 IU/L (<35); Albumin Globulin Ratio 0.9 (1.0-2.8); Alkaline Phosphatase 156 U/L (38-126); Aspartate Aminotransferase 95 IU/L (14-36); BUN Creatinine Ratio 20.7 (6-22); Bilirubin Total 0.6 mg/dL (0.2-1.3); Bilirubin Unconjugated 0.4 mg/dL (0.0-1.1); Blood Urea Nitrogen 17 mg/dL (7-17); Calcium 9.6 mg/dL (8.4-10.2); Carbon Dioxide 26 mmol/L (22-32); Chloride 106 mmol/L (98-107); Estimated Glomerular Filt Rate > 60.0 mL/min (>60); Globulin 4.4 g/dL (1.7-4.1); Glucose 90 mg/dL (80-110); HEMOLYSIS < 15 (0-50); Potassium 4.7 mmol/L (3.4-5.1); Sodium 139 mmol/L (137-145); Total Protein 8.4 g/dL (6.3-8.2)
== END ==
PROVIDERS: Family Provider Internal Medicine; PCP Internal Medicine; Referring Provider Internal Medicine; Visit Provider Nurse Practitioner
DX: K75.4 Autoimmune hepatitis (principal)
CPT/HCPCS: 36415; 80048; 80076; 85025; 85610

== ENCOUNTER → 2019-06-11 09:59 | Outpatient (CLI) | payer MEDICARE, SELFPAY ==
[2019-06-11 10:50] LABS: INR 1.2 (0.9-1.3); Prothrombin Time 13.9 SECONDS (10.1-12.7)
[2019-06-11 10:54] LABS: Add Manual Diff / Slide Review NO; Basophils Absolute Auto 0 /uL (0-100); Basophils Percent Auto 0.6 % (0-2); Eosinophils Absolute Auto 100 /uL (0-450); Hematocrit 41.4 % (36-46); Hemoglobin 14.2 g/dL (12.0-16.0); Lymphocytes Absolute Auto 1600 /uL (1100-4500); Mean Corpuscular HGB Conc 34.3 % (30-36); Mean Corpuscular Hemoglobin 32.2 PG (26-34); Mean Corpuscular Volume 94.1 fL (80-100); Monocytes Absolute Auto 500 /uL (0-900); Monocytes Percent Auto 9.1 % (3-14); Neutrophils Absolute Auto 2900 /uL (1500-7000); Neutrophils Percent Auto 57.3 % (50-75); Platelet Count 168 X10^3/uL (150-400); Red Cell Distribution Width 13.1 % (11.6-14.8); White Blood Cell Count 5.1 X10^3/uL (4.5-11.0)
[2019-06-11 11:06] LABS: Alanine Aminotransferase 76 IU/L (<35); Albumin Globulin Ratio 0.9 (1.0-2.8); Alkaline Phosphatase 130 U/L (38-126); Aspartate Aminotransferase 85 IU/L (14-36); BUN Creatinine Ratio 21.2 (6-22); Bilirubin Total 0.6 mg/dL (0.2-1.3); Bilirubin Unconjugated 0.5 mg/dL (0.0-1.1); Blood Urea Nitrogen 18 mg/dL (7-17); Calcium 9.3 mg/dL (8.4-10.2); Carbon Dioxide 24 mmol/L (22-32); Chloride 107 mmol/L (98-107); Estimated Glomerular Filt Rate > 60.0 mL/min (>60); Globulin 4.3 g/dL (1.7-4.1); Glucose 139 mg/dL (80-110); HEMOLYSIS < 15 (0-50); Potassium 4.3 mmol/L (3.4-5.1); Sodium 139 mmol/L (137-145); Total Protein 8.3 g/dL (6.3-8.2)
== END ==
PROVIDERS: Family Provider Internal Medicine; PCP Internal Medicine; Referring Provider Nurse Practitioner; Visit Provider Nurse Practitioner
DX: K75.4 Autoimmune hepatitis (principal)
CPT/HCPCS: 36415; 80048; 80076; 85025; 85610

== ENCOUNTER → 2019-06-26 09:17 | Outpatient (CLI) | payer MEDICARE, SELFPAY ==
--- NOTE | 2019-06-26 | DI.US.S_ITS ---
PROCEDURE: US ABDOMEN LIMITED INDICATIONS: AUTOIMMUNE HEPATITIS; CIRRHOSIS TECHNIQUE: Real-time focused scanning was performed of the abdomen, with image documentation. COMPARISON: [facility], , US ABDOMEN LIMITED, 12/31/2018, 22:44. FINDINGS: The liver is normal size and demonstrates a microlobulated margin. The parenchyma is diffusely coarse and mildly hyperechoic. No discrete nodules or masses are visible. The main portal vein demonstrates appropriate direction of flow and is patent. Portal vein caliber is 10 mm. No perihepatic ascites. The gallbladder wall is normal thickness at 1.5 mm. No pericholecystic fluid or Ts sign. There is a nonobstructing 2.4 cm calcified stone in the f fundus. The visible portion of the pancreas is normal. Extrahepatic common duct is nondilated at 5 mm. IMPRESSION: 1. Cirrhotic liver morphology without visible focal mass. 2. Cholelithiasis Dictated by: Arelis Shipman M.D. on 06/26/2019 at 10:49 Approved by: Arelis Shipman M.D. on 06/26/2019 at 10:52
[2019-06-26 10:20] LABS: Add Manual Diff / Slide Review NO; Basophils Absolute Auto 0 /uL (0-100); Basophils Percent Auto 0.6 % (0-2); Eosinophils Absolute Auto 100 /uL (0-450); Eosinophils Percent Auto 1.9 % (2-4); Hematocrit 43.6 % (36-46); Hemoglobin 14.8 g/dL (12.0-16.0); Lymphocytes Absolute Auto 1300 /uL (1100-4500); Lymphocytes Percent Auto 27.1 % (25-40); Mean Corpuscular Hemoglobin 31.8 PG (26-34); Mean Corpuscular Volume 93.7 fL (80-100); Monocytes Absolute Auto 500 /uL (0-900); Neutrophils Absolute Auto 2900 /uL (1500-7000); Neutrophils Percent Auto 60.4 % (50-75); Platelet Count 160 X10^3/uL (150-400); Red Blood Cell Count 4.66 X10^6/uL (4.0-5.2); Red Cell Distribution Width 13.1 % (11.6-14.8); White Blood Cell Count 4.7 X10^3/uL (4.5-11.0)
[2019-06-26 11:05] LABS: INR 1.2 (0.9-1.3); Prothrombin Time 13.9 SECONDS (10.1-12.7)
[2019-06-26 11:15] LABS: Alanine Aminotransferase 121 IU/L (<35); Albumin 4.2 g/dL (3.5-5.0); Alkaline Phosphatase 141 U/L (38-126); Aspartate Aminotransferase 120 IU/L (14-36); BUN Creatinine Ratio 15.6 (6-22); Bilirubin Total 0.8 mg/dL (0.2-1.3); Bilirubin Unconjugated 0.7 mg/dL (0.0-1.1); Blood Urea Nitrogen 14 mg/dL (7-17); Calcium 9.3 mg/dL (8.4-10.2); Carbon Dioxide 28 mmol/L (22-32); Chloride 106 mmol/L (98-107); Estimated Glomerular Filt Rate > 60.0 mL/min (>60); Globulin 4.3 g/dL (1.7-4.1); Glucose 111 mg/dL (80-110); HEMOLYSIS < 15 (0-50); Potassium 4.6 mmol/L (3.4-5.1); Sodium 140 mmol/L (137-145); Total Protein 8.5 g/dL (6.3-8.2)
== END ==
PROVIDERS: Family Provider Internal Medicine; PCP Internal Medicine; Referring Provider Nurse Practitioner; Visit Provider Nurse Practitioner
DX: K74.69 Other cirrhosis of liver (principal); K75.4 Autoimmune hepatitis; K80.20 Calculus of gallbladder without cholecystitis without obstruction
CPT/HCPCS: 36415; 76705; 80048; 80076; 85025; 85610

== ENCOUNTER → 2019-07-24 11:01 | Outpatient (CLI) | payer MEDICARE, SELFPAY ==
[2019-07-24 12:20] LABS: Add Manual Diff / Slide Review NO; Basophils Absolute Auto 100 /uL (0-100); Basophils Percent Auto 1.1 % (0-2); Eosinophils Absolute Auto 100 /uL (0-450); Eosinophils Percent Auto 1.2 % (2-4); Hematocrit 42.3 % (36-46); Hemoglobin 14.3 g/dL (12.0-16.0); Lymphocytes Absolute Auto 1800 /uL (1100-4500); Lymphocytes Percent Auto 31.7 % (25-40); Mean Corpuscular HGB Conc 33.8 % (30-36); Mean Corpuscular Hemoglobin 31.5 PG (26-34); Mean Corpuscular Volume 93.4 fL (80-100); Monocytes Absolute Auto 500 /uL (0-900); Monocytes Percent Auto 9.4 % (3-14); Neutrophils Absolute Auto 3100 /uL (1500-7000); Neutrophils Percent Auto 56.6 % (50-75); Platelet Count 155 X10^3/uL (150-400); Red Blood Cell Count 4.53 X10^6/uL (4.0-5.2); Red Cell Distribution Width 12.9 % (11.6-14.8); White Blood Cell Count 5.6 X10^3/uL (4.5-11.0)
[2019-07-24 12:31] LABS: INR 1.2 (0.9-1.3); Prothrombin Time 14.2 SECONDS (10.1-12.7)
[2019-07-24 12:48] LABS: Alanine Aminotransferase 75 IU/L (<35); Albumin Globulin Ratio 1.2 (1.0-2.8); Alkaline Phosphatase 91 U/L (38-126); Aspartate Aminotransferase 64 IU/L (14-36); BUN Creatinine Ratio 18.6 (6-22); Bilirubin Total 0.6 mg/dL (0.2-1.3); Bilirubin Unconjugated 0.6 mg/dL (0.0-1.1); Blood Urea Nitrogen 16 mg/dL (7-17); Calcium 9.6 mg/dL (8.4-10.2); Carbon Dioxide 25 mmol/L (22-32); Chloride 106 mmol/L (98-107); Estimated Glomerular Filt Rate > 60.0 mL/min (>60); Globulin 3.4 g/dL (1.7-4.1); Glucose 101 mg/dL (80-110); HEMOLYSIS < 15 (0-50); Magnesium 1.8 mg/dL (1.6-2.3); Potassium 4.7 mmol/L (3.4-5.1); Sodium 138 mmol/L (137-145); Total Protein 7.4 g/dL (6.3-8.2)
[2019-07-25 05:39] LABS: Tacrolimus 9.1 ng/mL (2.0-20.0)
== END ==
PROVIDERS: Family Provider Internal Medicine; PCP Internal Medicine; Referring Provider Nurse Practitioner; Visit Provider Nurse Practitioner
DX: K74.69 Other cirrhosis of liver (principal); E83.42 Hypomagnesemia
CPT/HCPCS: 36415; 80048; 80076; 80197; 83735; 85025; 85610

== ENCOUNTER → 2019-07-30 07:49 | Outpatient (CLI) | payer MEDICARE, SELFPAY ==
[2019-07-30 09:21] LABS: Add Manual Diff / Slide Review NO; Basophils Absolute Auto 0 /uL (0-100); Basophils Percent Auto 0.5 % (0-2); Eosinophils Absolute Auto 100 /uL (0-450); Eosinophils Percent Auto 1.5 % (2-4); Hematocrit 42.4 % (36-46); Hemoglobin 14.3 g/dL (12.0-16.0); Lymphocytes Absolute Auto 1800 /uL (1100-4500); Lymphocytes Percent Auto 29.8 % (25-40); Mean Corpuscular HGB Conc 33.8 % (30-36); Mean Corpuscular Hemoglobin 31.8 PG (26-34); Mean Corpuscular Volume 94.3 fL (80-100); Monocytes Absolute Auto 500 /uL (0-900); Monocytes Percent Auto 7.8 % (3-14); Neutrophils Absolute Auto 3700 /uL (1500-7000); Neutrophils Percent Auto 60.4 % (50-75); Platelet Count 153 X10^3/uL (150-400); White Blood Cell Count 6.1 X10^3/uL (4.5-11.0)
[2019-07-30 10:01] LABS: Alanine Aminotransferase 51 IU/L (<35); Albumin 4.1 g/dL (3.5-5.0); Albumin Globulin Ratio 1.2 (1.0-2.8); Alkaline Phosphatase 87 U/L (38-126); Aspartate Aminotransferase 56 IU/L (14-36); BUN Creatinine Ratio 18.4 (6-22); Bilirubin Total 0.7 mg/dL (0.2-1.3); Bilirubin Unconjugated 0.6 mg/dL (0.0-1.1); Blood Urea Nitrogen 16 mg/dL (7-17); Calcium 9.7 mg/dL (8.4-10.2); Carbon Dioxide 25 mmol/L (22-32); Chloride 106 mmol/L (98-107); Estimated Glomerular Filt Rate > 60.0 mL/min (>60); Globulin 3.3 g/dL (1.7-4.1); Glucose 154 mg/dL (80-110); HEMOLYSIS < 15 (0-50); Magnesium 1.7 mg/dL (1.6-2.3); Potassium 4.6 mmol/L (3.4-5.1); Sodium 138 mmol/L (137-145); Total Protein 7.4 g/dL (6.3-8.2)
[2019-07-30 13:33] LABS: INR 1.2 (0.9-1.3); Prothrombin Time 14.1 SECONDS (10.1-12.7)
[2019-07-31 08:09] LABS: Tacrolimus 11.4 ng/mL (2.0-20.0)
== END ==
PROVIDERS: Family Provider Internal Medicine; PCP Internal Medicine; Referring Provider Nurse Practitioner; Visit Provider Nurse Practitioner
DX: K74.69 Other cirrhosis of liver (principal); E83.42 Hypomagnesemia
CPT/HCPCS: 36415; 80048; 80076; 80197; 83735; 85025; 85610

== ENCOUNTER → 2019-08-02 10:09 | Outpatient (CLI) | payer MEDICARE, SELFPAY ==
[2019-08-02 11:45] LABS: INR 1.2 (0.9-1.3); Prothrombin Time 14.1 SECONDS (10.1-12.7)
[2019-08-02 12:05] LABS: Add Manual Diff / Slide Review NO; Basophils Absolute Auto 0 /uL (0-100); Basophils Percent Auto 0.6 % (0-2); Eosinophils Absolute Auto 100 /uL (0-450); Eosinophils Percent Auto 1.1 % (2-4); Hematocrit 43.3 % (36-46); Hemoglobin 14.5 g/dL (12.0-16.0); Lymphocytes Absolute Auto 1900 /uL (1100-4500); Lymphocytes Percent Auto 29.8 % (25-40); Mean Corpuscular HGB Conc 33.6 % (30-36); Mean Corpuscular Hemoglobin 31.5 PG (26-34); Mean Corpuscular Volume 93.8 fL (80-100); Monocytes Absolute Auto 600 /uL (0-900); Monocytes Percent Auto 9.4 % (3-14); Neutrophils Absolute Auto 3800 /uL (1500-7000); Neutrophils Percent Auto 59.1 % (50-75); Platelet Count 160 X10^3/uL (150-400); Red Blood Cell Count 4.61 X10^6/uL (4.0-5.2); Red Cell Distribution Width 12.8 % (11.6-14.8); White Blood Cell Count 6.5 X10^3/uL (4.5-11.0)
[2019-08-02 12:33] LABS: Alanine Aminotransferase 47 IU/L (<35); Albumin 4.2 g/dL (3.5-5.0); Albumin Globulin Ratio 1.3 (1.0-2.8); Alkaline Phosphatase 87 U/L (38-126); Aspartate Aminotransferase 52 IU/L (14-36); BUN Creatinine Ratio 19.3 (6-22); Bilirubin Total 0.6 mg/dL (0.2-1.3); Bilirubin Unconjugated 0.5 mg/dL (0.0-1.1); Blood Urea Nitrogen 16 mg/dL (7-17); Calcium 9.8 mg/dL (8.4-10.2); Carbon Dioxide 25 mmol/L (22-32); Chloride 108 mmol/L (98-107); Estimated Glomerular Filt Rate > 60.0 mL/min (>60); Globulin 3.2 g/dL (1.7-4.1); Glucose 107 mg/dL (80-110); HEMOLYSIS < 15 (0-50); Magnesium 1.7 mg/dL (1.6-2.3); Potassium 4.7 mmol/L (3.4-5.1); Sodium 139 mmol/L (137-145); Total Protein 7.4 g/dL (6.3-8.2)
[2019-08-03 10:36] LABS: Tacrolimus 11.9 ng/mL (2.0-20.0)
== END ==
PROVIDERS: Family Provider Internal Medicine; PCP Internal Medicine; Referring Provider Nurse Practitioner; Visit Provider Nurse Practitioner
DX: K75.4 Autoimmune hepatitis (principal); E83.42 Hypomagnesemia
CPT/HCPCS: 36415; 80048; 80076; 80197; 83735; 85025; 85610

== ENCOUNTER → 2019-08-06 09:11 | Outpatient (CLI) | payer MEDICARE, SELFPAY ==
[2019-08-06 11:10] LABS: Add Manual Diff / Slide Review NO; Basophils Absolute Auto 0 /uL (0-100); Basophils Percent Auto 0.5 % (0-2); Eosinophils Absolute Auto 100 /uL (0-450); Hematocrit 41.8 % (36-46); Hemoglobin 14.2 g/dL (12.0-16.0); Lymphocytes Absolute Auto 1600 /uL (1100-4500); Lymphocytes Percent Auto 28.3 % (25-40); Mean Corpuscular Hemoglobin 31.8 PG (26-34); Mean Corpuscular Volume 93.4 fL (80-100); Monocytes Absolute Auto 400 /uL (0-900); Monocytes Percent Auto 7.9 % (3-14); Neutrophils Absolute Auto 3500 /uL (1500-7000); Neutrophils Percent Auto 62.3 % (50-75); Platelet Count 160 X10^3/uL (150-400); Red Blood Cell Count 4.47 X10^6/uL (4.0-5.2); Red Cell Distribution Width 13.1 % (11.6-14.8); White Blood Cell Count 5.7 X10^3/uL (4.5-11.0)
[2019-08-06 11:19] LABS: INR 1.2 (0.9-1.3)
[2019-08-06 11:49] LABS: Alanine Aminotransferase 43 IU/L (<35); Albumin 4.1 g/dL (3.5-5.0); Albumin Globulin Ratio 1.1 (1.0-2.8); Alkaline Phosphatase 85 U/L (38-126); Aspartate Aminotransferase 54 IU/L (14-36); Bilirubin Total 0.7 mg/dL (0.2-1.3); Bilirubin Unconjugated 0.5 mg/dL (0.0-1.1); Blood Urea Nitrogen 15 mg/dL (7-17); Calcium 9.3 mg/dL (8.4-10.2); Carbon Dioxide 24 mmol/L (22-32); Chloride 107 mmol/L (98-107); Estimated Glomerular Filt Rate > 60.0 mL/min (>60); Globulin 3.6 g/dL (1.7-4.1); Glucose 167 mg/dL (80-110); HEMOLYSIS < 15 (0-50); Magnesium 1.6 mg/dL (1.6-2.3); Potassium 4.3 mmol/L (3.4-5.1); Sodium 139 mmol/L (137-145); Total Protein 7.7 g/dL (6.3-8.2)
[2019-08-07 08:12] LABS: Tacrolimus 7.8 ng/mL (2.0-20.0)
== END ==
PROVIDERS: Family Provider Internal Medicine; PCP Internal Medicine; Referring Provider Nurse Practitioner; Visit Provider Nurse Practitioner
DX: K74.69 Other cirrhosis of liver (principal); E83.42 Hypomagnesemia
CPT/HCPCS: 36415; 80048; 80076; 80197; 83735; 85025; 85610

== ENCOUNTER → 2019-08-12 08:31 | Outpatient (CLI) | payer MEDICARE, SELFPAY ==
[2019-08-12 09:33] LABS: Add Manual Diff / Slide Review NO; Basophils Absolute Auto 100 /uL (0-100); Basophils Percent Auto 1.1 % (0-2); Eosinophils Absolute Auto 100 /uL (0-450); Eosinophils Percent Auto 1.7 % (2-4); Hematocrit 44.7 % (36-46); Hemoglobin 14.6 g/dL (12.0-16.0); Lymphocytes Absolute Auto 1700 /uL (1100-4500); Lymphocytes Percent Auto 29.1 % (25-40); Mean Corpuscular HGB Conc 32.7 % (30-36); Mean Corpuscular Hemoglobin 30.6 PG (26-34); Mean Corpuscular Volume 93.6 fL (80-100); Monocytes Absolute Auto 500 /uL (0-900); Monocytes Percent Auto 8.3 % (3-14); Neutrophils Absolute Auto 3500 /uL (1500-7000); Neutrophils Percent Auto 59.8 % (50-75); Platelet Count 157 X10^3/uL (150-400); Red Blood Cell Count 4.77 X10^6/uL (4.0-5.2); Red Cell Distribution Width 12.7 % (11.6-14.8); White Blood Cell Count 5.9 X10^3/uL (4.5-11.0)
[2019-08-12 09:39] LABS: INR 1.2 (0.9-1.3); Prothrombin Time 14.1 SECONDS (10.1-12.7)
[2019-08-12 09:45] LABS: Alanine Aminotransferase 40 IU/L (<35); Albumin 4.3 g/dL (3.5-5.0); Albumin Globulin Ratio 1.2 (1.0-2.8); Alkaline Phosphatase 88 U/L (38-126); Aspartate Aminotransferase 50 IU/L (14-36); BUN Creatinine Ratio 21.4 (6-22); Bilirubin Total 0.8 mg/dL (0.2-1.3); Bilirubin Unconjugated 0.7 mg/dL (0.0-1.1); Blood Urea Nitrogen 18 mg/dL (7-17); Calcium 9.5 mg/dL (8.4-10.2); Carbon Dioxide 27 mmol/L (22-32); Chloride 108 mmol/L (98-107); Estimated Glomerular Filt Rate > 60.0 mL/min (>60); Globulin 3.7 g/dL (1.7-4.1); Glucose 107 mg/dL (80-110); HEMOLYSIS < 15 (0-50); Magnesium 1.9 mg/dL (1.6-2.3); Potassium 4.6 mmol/L (3.4-5.1); Sodium 141 mmol/L (137-145)
[2019-08-13 10:39] LABS: Tacrolimus 7.4 ng/mL (2.0-20.0)
== END ==
PROVIDERS: Family Provider Internal Medicine; PCP Internal Medicine; Referring Provider Nurse Practitioner; Visit Provider Nurse Practitioner
DX: K74.69 Other cirrhosis of liver (principal); E83.42 Hypomagnesemia
CPT/HCPCS: 36415; 80048; 80076; 80197; 83735; 85025; 85610

== ENCOUNTER → 2019-08-16 08:58 | Outpatient (CLI) | payer MEDICARE, SELFPAY ==
[2019-08-16 11:02] LABS: Add Manual Diff / Slide Review NO; Basophils Absolute Auto 0 /uL (0-100); Basophils Percent Auto 0.6 % (0-2); Eosinophils Absolute Auto 100 /uL (0-450); Eosinophils Percent Auto 1.1 % (2-4); Hemoglobin 14.1 g/dL (12.0-16.0); Lymphocytes Absolute Auto 1400 /uL (1100-4500); Mean Corpuscular HGB Conc 32.7 % (30-36); Mean Corpuscular Hemoglobin 30.8 PG (26-34); Mean Corpuscular Volume 94.2 fL (80-100); Monocytes Absolute Auto 400 /uL (0-900); Monocytes Percent Auto 7.2 % (3-14); Neutrophils Absolute Auto 3700 /uL (1500-7000); Neutrophils Percent Auto 66.1 % (50-75); Platelet Count 162 X10^3/uL (150-400); Red Blood Cell Count 4.57 X10^6/uL (4.0-5.2); Red Cell Distribution Width 12.9 % (11.6-14.8); White Blood Cell Count 5.6 X10^3/uL (4.5-11.0)
[2019-08-16 11:06] LABS: Alanine Aminotransferase 32 IU/L (<35); Albumin Globulin Ratio 1.3 (1.0-2.8); Alkaline Phosphatase 81 U/L (38-126); Aspartate Aminotransferase 43 IU/L (14-36); BUN Creatinine Ratio 19.5 (6-22); Bilirubin Total 0.7 mg/dL (0.2-1.3); Bilirubin Unconjugated 0.6 mg/dL (0.0-1.1); Blood Urea Nitrogen 16 mg/dL (7-17); Calcium 9.4 mg/dL (8.4-10.2); Carbon Dioxide 24 mmol/L (22-32); Chloride 107 mmol/L (98-107); Estimated Glomerular Filt Rate > 60.0 mL/min (>60); Globulin 3.1 g/dL (1.7-4.1); Glucose 175 mg/dL (80-110); HEMOLYSIS < 15 (0-50); Magnesium 1.8 mg/dL (1.6-2.3); Potassium 4.5 mmol/L (3.4-5.1); Sodium 139 mmol/L (137-145); Total Protein 7.1 g/dL (6.3-8.2)
[2019-08-16 11:12] LABS: INR 1.2 (0.9-1.3); Prothrombin Time 14.2 SECONDS (10.1-12.7)
== END ==
PROVIDERS: Family Provider Internal Medicine; PCP Internal Medicine; Referring Provider Nurse Practitioner; Visit Provider Nurse Practitioner
DX: K74.69 Other cirrhosis of liver (principal); E83.42 Hypomagnesemia
CPT/HCPCS: 36415; 80048; 80076; 80197; 83735; 85025; 85610

== ENCOUNTER → 2019-08-23 08:38 | Outpatient (CLI) | payer MEDICARE, SELFPAY ==
[2019-08-23 09:24] LABS: INR 1.3 (0.9-1.3); Prothrombin Time 14.5 SECONDS (10.1-12.7)
[2019-08-23 09:40] LABS: Alanine Aminotransferase 35 IU/L (<35); Albumin 4.2 g/dL (3.5-5.0); Albumin Globulin Ratio 1.3 (1.0-2.8); Alkaline Phosphatase 92 U/L (38-126); Aspartate Aminotransferase 44 IU/L (14-36); BUN Creatinine Ratio 17.9 (6-22); Bilirubin Unconjugated 0.9 mg/dL (0.0-1.1); Blood Urea Nitrogen 15 mg/dL (7-17); Calcium 9.4 mg/dL (8.4-10.2); Carbon Dioxide 29 mmol/L (22-32); Chloride 106 mmol/L (98-107); Estimated Glomerular Filt Rate > 60.0 mL/min (>60); Globulin 3.3 g/dL (1.7-4.1); Glucose 109 mg/dL (80-110); HEMOLYSIS < 15 (0-50); Potassium 4.9 mmol/L (3.4-5.1); Sodium 140 mmol/L (137-145); Total Protein 7.5 g/dL (6.3-8.2)
[2019-08-23 09:41] LABS: Add Manual Diff / Slide Review NO; Basophils Absolute Auto 0 /uL (0-100); Basophils Percent Auto 0.6 % (0-2); Eosinophils Absolute Auto 100 /uL (0-450); Hematocrit 43.4 % (36-46); Hemoglobin 14.7 g/dL (12.0-16.0); Lymphocytes Absolute Auto 1900 /uL (1100-4500); Lymphocytes Percent Auto 32.9 % (25-40); Mean Corpuscular Hemoglobin 31.4 PG (26-34); Mean Corpuscular Volume 92.6 fL (80-100); Monocytes Absolute Auto 500 /uL (0-900); Monocytes Percent Auto 9.1 % (3-14); Neutrophils Absolute Auto 3300 /uL (1500-7000); Neutrophils Percent Auto 56.4 % (50-75); Platelet Count 167 X10^3/uL (150-400); Red Blood Cell Count 4.68 X10^6/uL (4.0-5.2); Red Cell Distribution Width 12.9 % (11.6-14.8); White Blood Cell Count 5.8 X10^3/uL (4.5-11.0)
[2019-08-25 07:10] LABS: Tacrolimus 6.3 ng/mL (2.0-20.0)
== END ==
PROVIDERS: Family Provider Internal Medicine; PCP Internal Medicine; Referring Provider Nurse Practitioner; Visit Provider Nurse Practitioner
DX: K74.69 Other cirrhosis of liver (principal); E83.42 Hypomagnesemia
CPT/HCPCS: 36415; 80048; 80076; 80197; 83735; 85025; 85610

== ENCOUNTER → 2019-09-13 08:49 | Outpatient (CLI) | payer MEDICARE, SELFPAY ==
[2019-09-13 10:44] LABS: Add Manual Diff / Slide Review NO; Basophils Absolute Auto 0 /uL (0-100); Basophils Percent Auto 0.7 % (0-2); Eosinophils Absolute Auto 100 /uL (0-450); Eosinophils Percent Auto 1.6 % (2-4); Hematocrit 42.4 % (36-46); Lymphocytes Absolute Auto 1400 /uL (1100-4500); Lymphocytes Percent Auto 26.7 % (25-40); Mean Corpuscular HGB Conc 32.9 % (30-36); Mean Corpuscular Hemoglobin 30.8 PG (26-34); Mean Corpuscular Volume 93.4 fL (80-100); Monocytes Absolute Auto 400 /uL (0-900); Monocytes Percent Auto 8.1 % (3-14); Neutrophils Absolute Auto 3300 /uL (1500-7000); Neutrophils Percent Auto 62.9 % (50-75); Platelet Count 168 X10^3/uL (150-400); Red Blood Cell Count 4.54 X10^6/uL (4.0-5.2); Red Cell Distribution Width 12.9 % (11.6-14.8); White Blood Cell Count 5.3 X10^3/uL (4.5-11.0)
[2019-09-13 11:10] LABS: Alanine Aminotransferase 27 IU/L (<35); Albumin Globulin Ratio 1.2 (1.0-2.8); Alkaline Phosphatase 71 U/L (38-126); Aspartate Aminotransferase 41 IU/L (14-36); Bilirubin Total 0.7 mg/dL (0.2-1.3); Bilirubin Unconjugated 0.6 mg/dL (0.0-1.1); Blood Urea Nitrogen 16 mg/dL (7-17); Calcium 9.6 mg/dL (8.4-10.2); Carbon Dioxide 24 mmol/L (22-32); Chloride 108 mmol/L (98-107); Estimated Glomerular Filt Rate > 60.0 mL/min (>60); Globulin 3.4 g/dL (1.7-4.1); Glucose 152 mg/dL (80-110); HEMOLYSIS < 15 (0-50); Magnesium 1.8 mg/dL (1.6-2.3); Potassium 4.5 mmol/L (3.4-5.1); Sodium 139 mmol/L (137-145); Total Protein 7.4 g/dL (6.3-8.2)
[2019-09-13 11:27] LABS: INR 1.2 (0.9-1.3); Prothrombin Time 13.8 SECONDS (10.1-12.7)
[2019-09-14 07:44] LABS: Tacrolimus 7.7 ng/mL (2.0-20.0)
== END ==
PROVIDERS: Family Provider Internal Medicine; PCP Internal Medicine; Referring Provider Nurse Practitioner; Visit Provider Nurse Practitioner
DX: K74.69 Other cirrhosis of liver (principal); Z79.899 Other long term (current) drug therapy
CPT/HCPCS: 36415; 80048; 80076; 80197; 83735; 85025; 85610

== ENCOUNTER → 2019-10-04 08:05 | Outpatient (CLI) | payer MEDICARE, SELFPAY ==
[2019-10-04 09:31] LABS: Add Manual Diff / Slide Review NO; Basophils Absolute Auto 0 /uL (0-100); Basophils Percent Auto 0.6 % (0-2); Eosinophils Absolute Auto 100 /uL (0-450); Eosinophils Percent Auto 1.4 % (2-4); Hematocrit 42.8 % (36-46); Hemoglobin 14.4 g/dL (12.0-16.0); Lymphocytes Absolute Auto 1700 /uL (1100-4500); Lymphocytes Percent Auto 30.8 % (25-40); Mean Corpuscular HGB Conc 33.7 % (30-36); Mean Corpuscular Hemoglobin 31.4 PG (26-34); Mean Corpuscular Volume 93.2 fL (80-100); Monocytes Absolute Auto 500 /uL (0-900); Monocytes Percent Auto 9.3 % (3-14); Neutrophils Absolute Auto 3200 /uL (1500-7000); Neutrophils Percent Auto 57.9 % (50-75); Platelet Count 155 X10^3/uL (150-400); Red Blood Cell Count 4.59 X10^6/uL (4.0-5.2); White Blood Cell Count 5.5 X10^3/uL (4.5-11.0)
[2019-10-04 09:43] LABS: Alanine Aminotransferase 34 IU/L (<35); Albumin 4.1 g/dL (3.5-5.0); Albumin Globulin Ratio 1.2 (1.0-2.8); Alkaline Phosphatase 96 U/L (38-126); Aspartate Aminotransferase 46 IU/L (14-36); BUN Creatinine Ratio 19.3 (6-22); Bilirubin Total 0.9 mg/dL (0.2-1.3); Bilirubin Unconjugated 0.7 mg/dL (0.0-1.1); Blood Urea Nitrogen 17 mg/dL (7-17); Calcium 9.3 mg/dL (8.4-10.2); Carbon Dioxide 27 mmol/L (22-32); Chloride 107 mmol/L (98-107); Estimated Glomerular Filt Rate > 60.0 mL/min (>60); Globulin 3.3 g/dL (1.7-4.1); Glucose 99 mg/dL (80-110); HEMOLYSIS < 15 (0-50); Magnesium 1.7 mg/dL (1.6-2.3); Potassium 4.7 mmol/L (3.4-5.1); Sodium 140 mmol/L (137-145); Total Protein 7.4 g/dL (6.3-8.2)
[2019-10-04 09:49] LABS: INR 1.2 (0.9-1.3); Prothrombin Time 14.2 SECONDS (10.1-12.7)
[2019-10-05 08:20] LABS: Tacrolimus 8.3 ng/mL (2.0-20.0)
== END ==
PROVIDERS: Family Provider Internal Medicine; PCP Internal Medicine; Referring Provider Internal Medicine Gastroenterology; Visit Provider Internal Medicine Gastroenterology
DX: K74.69 Other cirrhosis of liver (principal); E83.42 Hypomagnesemia
CPT/HCPCS: 36415; 80048; 80076; 80197; 83735; 85025; 85610

== ENCOUNTER → 2019-10-05 08:31 | Outpatient (CLI) | payer MEDICARE, SELFPAY ==
[2019-10-07 01:41] LABS: COVID19 Sendout Not Detected (Not Detected)
== END ==
PROVIDERS: Family Provider Internal Medicine; PCP Internal Medicine; Visit Provider Physician Assistant
DX: Z11.59 Encounter for screening for other viral diseases (principal)
CPT/HCPCS: 87635

== ENCOUNTER 2019-10-08 07:19 | Day surgery (SDC) | payer MEDICARE, SELFPAY ==
--- NOTE | 2019-10-08 | PATH_ITS ---
[facility] Accession Number: [id number] . 01 Material submitted: . PART A: duodenum - DUODENUM BIOPSY PART B: gastrointestinal site - GASTRIC POLYP PART C: colon - RANDOM COLON BIOPSIES PART D: colon - ASCENDING COLON POLYP . 02 Diagnosis: A. Duodenum, Biopsy: Duodenal mucosa with focal foveolar metaplasia, consistent with peptic duodenitis. Negative for active inflammation, features of sprue, dysplasia or malignancy. . B. Gastric Polyp, Biopsy: Fundic gland polyp. No evidence of Helicobacter organisms on H/E stain. Negative for intestinal metaplasia. Negative for dysplasia and malignancy. . C. Random Colon, Biopsies: Colonic mucosa with no diagnostic abnormality. Negative for active, chronic, and microscopic colitis. Negative for dysplasia and malignancy. . D. Ascending Colon Polyp, Biopsy: Tubulovillous adenoma. Negative for high-grade dysplasia or malignancy. [facility] 10/10/2019 1116 Local . 02 Electronically signed: . Barak Awad MD, PhD, Pathologist NPI- [id number] . 01 Gross description: . A. Received in formalin, labeled duodenum biopsy, and consists of 14 pink fragments of soft tissue measuring 0.8 x 0.3 x 0.2 cm in aggregate. The specimen is entirely submitted in cassette A1. B. Received in formalin, labeled gastric polyp, and consists of two woodson-pink fragments of soft tissue measuring 0.6 x 0.3 x 0.2 cm in aggregate. The specimen is entirely submitted in cassette B1. C. Received in formalin, labeled random colon biopsies, and consists of multiple woodson fragments of soft tissue measuring 2.5 x 2.0 x 0.3 cm in aggregate. The specimen is entirely submitted in cassette C1. D. Received in formalin, labeled ascending colon polyp, and consists of six woodson fragments of soft tissue measuring 1.5 x 1.0 x 0.3 cm in aggregate. The specimen is entirely submitted in cassette D1. ([id number]) /MRV 10/09/2019 1033 Local . 02 Pathologist provided ICD-10: K29.80, K31.7, R19.4, D12.2 . 02 CPT . 717382, 740952, 470407, [id number] Performed at: 01 [facility] [address] [id number] MD Rajeev Jack MD Phone: [phone] Performed at: 02 [facility] [address] [place], [place] [id number] MD Leeanna Shelton MD Phone: [phone]
[2019-10-08 08:09] VITALS: BP 131/84; PULSE 73; RESP 12; TEMP 36.3; O2SAT 96; BMI 30.2
--- NOTE | 2019-10-08 08:22 | PM.HP.1 ---
History of Present Illness History of Present Illness Date Patient Seen: 10/08/19 Time Patient Seen: 08:22 Chief complaint: SDC Narrative: Patient is a pleasant 78 year old female with a history of autoimmue cirrhosis presented for EGD and Colonoscopy. She is due for variceal screening. Since medication changes she has had chronic diarrhea, and is due for screening colonoscopy. Patient History Medical History Autoimmune hepatitis treated with steroids (Acute) Hypercholesteremia (Acute) Hypertension (Acute) Hypothyroid (Acute) Osteoporosis (Acute) Surgical History H/O: hysterectomy (Acute) Family & Social History Tobacco & Substance use: Smoking Status Former smoker alcohol intake frequency 0-2 drinks per day Substance Use Type does not use Meds Home Medications and Allergies Home Medications Medication Instructions Recorded Confirmed Type alendronate 70 mg PO QWEEK 08/06/18 08/06/18 History atorvastatin 20 mg PO DAILY 08/06/18 08/06/18 History levothyroxine 75 mcg PO DAILY 08/06/18 08/06/18 History losartan 12.5 mg PO DAILY 08/06/18 08/06/18 History spironolactone 25 mg PO DAILY 08/06/18 08/06/18 History tacrolimus 1 mg PO Q12H 10/08/19 10/08/19 History Allergies Allergy/AdvReac Type Severity Reaction Status Date / Time Sulfa (Sulfonamide Allergy Intermediate Cough Verified 10/08/19 08:08 Antibiotics) Review of Systems Review of Systems ROS: Yes All systems reviewed with the patient and are negative except as otherwise documented Exam Const General: cooperative, healthy appearing, comfortable, well developed and well groomed Orientation: alert and awake [facility] Head: normocephalic and atraumatic Resp Effort & Inspection: normal respiratory effort and able to speak in complete sentences Auscultation: clear to auscultation bilaterally Cardio Rate: regular rate Rhythm: regular rhythm Heart Sounds: S1 normal and S2 normal GI Palpation: soft and No tender Auscultation: normal bowel sounds Extrem Right lower extremity: no edema Left lower extremity: no edema Assessment & Plan Assessment & Plan narrative: 1. Autoimmune cirrhosis - due for variceal screening 2. Diarrhea EGD and Colonoscopy today, further recommendations will follow
[2019-10-08] MEDS: SODIUM CHLORIDE 0.9% 1,000 ML 70 ML IV (08:30)
[2019-10-08] MEDS: MIDAZOLAM 5 MG/5 ML VIAL IV (08:48)
[2019-10-08] MEDS: fentaNYL 250 MCG/5 ML INJ IV (08:48)
[2019-10-08] MEDS: LIDOCAINE 4% SOLN 50 ML 20 ML TOP (09:05)
[2019-10-08 09:16] VITALS: BP 95/66; PULSE 65; RESP 17; TEMP 37.1; O2SAT 96
--- NOTE | 2019-10-08 09:16 | P.OP.ENDO_ITS ---
Operative Date/Time/Diagnoses Date of procedure: 10/08/19 Time of procedure: 08:38 Procedure Notes Procedure in detail: Surgeon: Claudia Cabrera DO Procedure: Esophagogastroduodenoscopy with biopsy and colonoscopy with biopsy and polypectomy Preoperative diagnosis: 1. 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 Chronic diarrhea Postoperative diagnosis: 1. Normal-appearing esophagus, no esophageal varices 2. Gastric polyps -biopsied 3. Normal appearing small bowel rule out celiac sprue 4. Ascending colon polyp 6 mm 5. Normal-appearing colon mucosa, biopsied to rule out microscopic colitis 6. Diverticulosis in the sigmoid and ascending colon Medications: Conscious sedation using 4 mg IV of Midazolam and 100 mcg IV of Fentanyl (total for both procedures), lidocaine gargle Preanesthesia Assessment An H and P was performed/updated and the Px?s ASA class is 2. The procedure was discussed in detail with the patient. The potential risks and complications including infection, bleeding, missed lesions, perforation, need for surgery in case of perforation, prolonged hospital stay, and were explained. A brief question and answer period was allotted and once all questions were answered, informed consent was obtained. The patient was brought back to the procedure room and placed on standard monitoring. The patient?s vital signs were monitored continuously throughout the entire procedure. Prior to starting, a timeout was performed to confirm the patient?s identity, allergies, medications, and procedure. Procedure in detail The patient was placed in left lateral decubitus position and a bite block was inserted. The tip of the upper endoscope was placed into the mouth and advanced without difficulty under direct visualization into the esophagus. Esophagus: Normal-appearing esophageal mucosa, no esophageal varices Z-line regular at the GE junction Stomach: Normal-appearing gastric mucosa Multiple small polyps scattered throughout the stomach -biopsied Duodenum: Normal-appearing bowel mucosa -biopsied to rule out celiac sprue After the upper endoscopy, preparations were made for the colonoscopy. Once adequate sedation was obtained a ALONDRA was performed. The digital rectal examination did not reveal any palpable lesions. The tip of the colonoscope was placed in the anal canal and advanced with some difficulty due to a tortous colon - manual pressure was applied. Scope was able to be advanced all the way to the cecum which was identified by the appendiceal orifice and the ileocecal valve. Colonosocpy findgings: - 6 mm flat polyp removed with cold snare in the ascending colon - Diverticulosis in the sigmoid and descending colon - Normal appearing colonic mucosa throughout the entire colon, biopsied to rule out microscopic colitis The patient tolerated the procedure well and will be brought back to the [facility] area to be discharged once criteria are met. The prep was judged to be good/excellent and adequate to identify polyps less than 5 mm. The withdrawal time was 9min. The total physician intraservice time was 28min. Complications There were no complications and estimated blood loss was minimal. Recommendations Resume previous diet Continue outpatient medications Follow-up pathology results Repeat colonoscopy after pathology results are reviewed Follow-up at our office as previously recommended An emergency contact number was given to the patient for any complications related to the procedure
[2019-10-08 09:21] VITALS: BP 89/61; PULSE 62; RESP 17; O2SAT 94
[2019-10-08 09:26] VITALS: BP 93/64; PULSE 58; RESP 17; TEMP 36.1; O2SAT 94
[2019-10-08 09:47] VITALS: BP 87/58; PULSE 63; RESP 16; TEMP 36.4; O2SAT 97
[2019-10-08 10:09] VITALS: BP 97/66
== END 2019-10-08 10:12 | disposition home or self-care (01) ==
PROVIDERS: Family Provider Internal Medicine; PCP Internal Medicine; Referring Provider Internal Medicine; Visit Provider Student in an Organized Health Care Education/Training Program
PROC: 0DJ08ZZ Inspection of Upper Intestinal Tract, Via Natural or Artificial Opening Endoscopic (ICD-10-PCS; CPT 43235; principal; 2019-10-08 08:30)
PROC: 0DJD8ZZ Inspection of Lower Intestinal Tract, Via Natural or Artificial Opening Endoscopic (ICD-10-PCS; CPT 45378; 2019-10-08 08:30)
DX: D12.2 Benign neoplasm of ascending colon (principal); K74.69 Other cirrhosis of liver; E03.9 Hypothyroidism, unspecified; I10 Essential (primary) hypertension; K29.80 Duodenitis without bleeding; K31.7 Polyp of stomach and duodenum
CPT/HCPCS: 45385; 45380; 43239; J2250; J3010

== ENCOUNTER → 2019-11-08 08:31 | Outpatient (CLI) | payer MEDICARE, SELFPAY ==
[2019-11-08 10:02] LABS: Add Manual Diff / Slide Review NO; Basophils Absolute Auto 100 /uL (0-100); Basophils Percent Auto 0.9 % (0-2); Eosinophils Absolute Auto 200 /uL (0-450); Eosinophils Percent Auto 2.8 % (2-4); Hematocrit 43.5 % (36-46); Hemoglobin 14.5 g/dL (12.0-16.0); Lymphocytes Absolute Auto 1400 /uL (1100-4500); Lymphocytes Percent Auto 24.9 % (25-40); Mean Corpuscular HGB Conc 33.3 % (30-36); Mean Corpuscular Volume 93.1 fL (80-100); Monocytes Absolute Auto 600 /uL (0-900); Monocytes Percent Auto 10.3 % (3-14); Neutrophils Absolute Auto 3500 /uL (1500-7000); Neutrophils Percent Auto 61.1 % (50-75); Platelet Count 159 X10^3/uL (150-400); Red Blood Cell Count 4.67 X10^6/uL (4.0-5.2); Red Cell Distribution Width 12.9 % (11.6-14.8); White Blood Cell Count 5.7 X10^3/uL (4.5-11.0)
[2019-11-08 10:12] LABS: INR 1.3 (0.9-1.3); Prothrombin Time 14.3 SECONDS (10.1-12.7)
[2019-11-08 10:28] LABS: Alanine Aminotransferase 53 IU/L (<35); Albumin 4.1 g/dL (3.5-5.0); Alkaline Phosphatase 122 U/L (38-126); Aspartate Aminotransferase 60 IU/L (14-36); BUN Creatinine Ratio 20.9 (6-22); Bilirubin Total 0.8 mg/dL (0.2-1.3); Bilirubin Unconjugated 0.7 mg/dL (0.0-1.1); Blood Urea Nitrogen 18 mg/dL (7-17); Calcium 9.5 mg/dL (8.4-10.2); Carbon Dioxide 28 mmol/L (22-32); Chloride 106 mmol/L (98-107); Estimated Glomerular Filt Rate > 60.0 mL/min (>60); Globulin 4.2 g/dL (1.7-4.1); Glucose 112 mg/dL (80-110); HEMOLYSIS < 15 (0-50); Magnesium 1.8 mg/dL (1.6-2.3); Potassium 4.4 mmol/L (3.4-5.1); Sodium 139 mmol/L (137-145); Total Protein 8.3 g/dL (6.3-8.2)
[2019-11-09 11:07] LABS: Tacrolimus 7.8 ng/mL (2.0-20.0)
== END ==
PROVIDERS: Family Provider Internal Medicine; PCP Internal Medicine; Referring Provider Nurse Practitioner; Visit Provider Nurse Practitioner
DX: K74.69 Other cirrhosis of liver (principal); Z79.899 Other long term (current) drug therapy
CPT/HCPCS: 36415; 80048; 80076; 80197; 83735; 85025; 85610

== ENCOUNTER → 2019-11-22 08:48 | Outpatient (CLI) | payer MEDICARE, SELFPAY ==
[2019-11-22 10:37] LABS: Add Manual Diff / Slide Review NO; Basophils Absolute Auto 100 /uL (0-100); Basophils Percent Auto 1.1 % (0-2); Eosinophils Absolute Auto 200 /uL (0-450); Eosinophils Percent Auto 3.5 % (2-4); Hematocrit 42.4 % (36-46); Hemoglobin 14.1 g/dL (12.0-16.0); Lymphocytes Absolute Auto 1500 /uL (1100-4500); Lymphocytes Percent Auto 22.9 % (25-40); Mean Corpuscular HGB Conc 33.3 % (30-36); Mean Corpuscular Volume 93.3 fL (80-100); Monocytes Absolute Auto 600 /uL (0-900); Monocytes Percent Auto 10.1 % (3-14); Neutrophils Absolute Auto 4000 /uL (1500-7000); Neutrophils Percent Auto 62.4 % (50-75); Platelet Count 182 X10^3/uL (150-400); Red Blood Cell Count 4.54 X10^6/uL (4.0-5.2); Red Cell Distribution Width 12.7 % (11.6-14.8); White Blood Cell Count 6.4 X10^3/uL (4.5-11.0)
[2019-11-22 10:38] LABS: INR 1.3 (0.9-1.3); Prothrombin Time 14.5 SECONDS (10.1-12.7)
[2019-11-22 10:46] LABS: Alanine Aminotransferase 59 IU/L (<35); Albumin 4.2 g/dL (3.5-5.0); Alkaline Phosphatase 144 U/L (38-126); Aspartate Aminotransferase 66 IU/L (14-36); BUN Creatinine Ratio 20.7 (6-22); Bilirubin Total 0.8 mg/dL (0.2-1.3); Bilirubin Unconjugated 0.7 mg/dL (0.0-1.1); Blood Urea Nitrogen 18 mg/dL (7-17); Calcium 9.4 mg/dL (8.4-10.2); Carbon Dioxide 29 mmol/L (22-32); Chloride 105 mmol/L (98-107); Estimated Glomerular Filt Rate > 60.0 mL/min (>60); Globulin 4.3 g/dL (1.7-4.1); Glucose 112 mg/dL (80-110); HEMOLYSIS < 15 (0-50); Potassium 4.4 mmol/L (3.4-5.1); Sodium 140 mmol/L (137-145); Total Protein 8.5 g/dL (6.3-8.2)
[2019-11-22 11:20] LABS: TSH w/ Reflex to FT4 1.77 uIU/mL (0.47-4.68)
[2019-11-23 07:49] LABS: Tacrolimus 5.4 ng/mL (2.0-20.0)
== END ==
PROVIDERS: Family Provider Internal Medicine; PCP Internal Medicine; Referring Provider Internal Medicine; Visit Provider Nurse Practitioner
DX: K74.69 Other cirrhosis of liver (principal); E03.9 Hypothyroidism, unspecified
CPT/HCPCS: 36415; 80048; 80076; 80197; 84443; 85025; 85610

== ENCOUNTER → 2019-12-13 08:29 | Outpatient (CLI) | payer MEDICARE, SELFPAY ==
[2019-12-13 09:41] LABS: Add Manual Diff / Slide Review NO; Basophils Absolute Auto 0 /uL (0-100); Basophils Percent Auto 0.6 % (0-2); Eosinophils Absolute Auto 100 /uL (0-450); Eosinophils Percent Auto 2.1 % (2-4); Hematocrit 43.5 % (36-46); Hemoglobin 14.5 g/dL (12.0-16.0); Lymphocytes Absolute Auto 1700 /uL (1100-4500); Lymphocytes Percent Auto 25.9 % (25-40); Mean Corpuscular HGB Conc 33.3 % (30-36); Mean Corpuscular Hemoglobin 31.1 PG (26-34); Mean Corpuscular Volume 93.4 fL (80-100); Monocytes Absolute Auto 700 /uL (0-900); Monocytes Percent Auto 10.4 % (3-14); Neutrophils Absolute Auto 4100 /uL (1500-7000); Platelet Count 188 X10^3/uL (150-400); Red Blood Cell Count 4.66 X10^6/uL (4.0-5.2); Red Cell Distribution Width 12.5 % (11.6-14.8); White Blood Cell Count 6.7 X10^3/uL (4.5-11.0)
[2019-12-13 09:51] LABS: INR 1.2 (0.9-1.3); Prothrombin Time 14.4 SECONDS (10.1-12.7)
[2019-12-13 10:15] LABS: Alanine Aminotransferase 104 IU/L (<35); Albumin 4.4 g/dL (3.5-5.0); Albumin Globulin Ratio 0.9 (1.0-2.8); Alkaline Phosphatase 197 U/L (38-126); Aspartate Aminotransferase 100 IU/L (14-36); BUN Creatinine Ratio 21.1 (6-22); Bilirubin Total 0.9 mg/dL (0.2-1.3); Bilirubin Unconjugated 0.7 mg/dL (0.0-1.1); Blood Urea Nitrogen 19 mg/dL (7-17); Calcium 9.6 mg/dL (8.4-10.2); Carbon Dioxide 27 mmol/L (22-32); Chloride 106 mmol/L (98-107); Estimated Glomerular Filt Rate > 60.0 mL/min (>60); Glucose 123 mg/dL (80-110); HEMOLYSIS < 15 (0-50); Potassium 4.8 mmol/L (3.4-5.1); Sodium 139 mmol/L (137-145); Total Protein 9.4 g/dL (6.3-8.2)
[2019-12-14 08:13] LABS: Tacrolimus 4.6 ng/mL (2.0-20.0)
== END ==
PROVIDERS: Family Provider Internal Medicine; PCP Internal Medicine; Referring Provider Nurse Practitioner; Visit Provider Nurse Practitioner
DX: K74.69 Other cirrhosis of liver (principal)
CPT/HCPCS: 36415; 80048; 80076; 80197; 85025; 85610

== ENCOUNTER → 2019-12-27 08:18 | Outpatient (CLI) | payer MEDICARE, SELFPAY ==
[2019-12-27 09:03] LABS: Add Manual Diff / Slide Review NO; Basophils Absolute Auto 100 /uL (0-100); Basophils Percent Auto 0.9 % (0-2); Eosinophils Absolute Auto 100 /uL (0-450); Eosinophils Percent Auto 1.9 % (2-4); Hematocrit 44.2 % (36-46); Hemoglobin 14.6 g/dL (12.0-16.0); Lymphocytes Absolute Auto 2200 /uL (1100-4500); Lymphocytes Percent Auto 32.2 % (25-40); Mean Corpuscular Hemoglobin 30.8 PG (26-34); Mean Corpuscular Volume 93.5 fL (80-100); Monocytes Absolute Auto 700 /uL (0-900); Monocytes Percent Auto 9.7 % (3-14); Neutrophils Absolute Auto 3700 /uL (1500-7000); Neutrophils Percent Auto 55.3 % (50-75); Platelet Count 178 X10^3/uL (150-400); Red Blood Cell Count 4.73 X10^6/uL (4.0-5.2); Red Cell Distribution Width 12.9 % (11.6-14.8); White Blood Cell Count 6.7 X10^3/uL (4.5-11.0)
[2019-12-27 09:07] LABS: INR 1.3 (0.9-1.3); Prothrombin Time 14.5 SECONDS (10.1-12.7)
[2019-12-27 09:52] LABS: Alanine Aminotransferase 130 IU/L (<35); Albumin 4.1 g/dL (3.5-5.0); Albumin Globulin Ratio 0.8 (1.0-2.8); Alkaline Phosphatase 200 U/L (38-126); Aspartate Aminotransferase 120 IU/L (14-36); BUN Creatinine Ratio 21.3 (6-22); Bilirubin Total 0.8 mg/dL (0.2-1.3); Bilirubin Unconjugated 0.6 mg/dL (0.0-1.1); Blood Urea Nitrogen 20 mg/dL (7-17); Calcium 9.4 mg/dL (8.4-10.2); Carbon Dioxide 29 mmol/L (22-32); Chloride 105 mmol/L (98-107); Estimated Glomerular Filt Rate 57.7 mL/min (>60); Glucose 125 mg/dL (80-110); HEMOLYSIS < 15 (0-50); Potassium 4.3 mmol/L (3.4-5.1); Sodium 138 mmol/L (137-145); Total Protein 9.1 g/dL (6.3-8.2)
== END ==
PROVIDERS: Family Provider Internal Medicine; PCP Internal Medicine; Referring Provider Nurse Practitioner; Visit Provider Nurse Practitioner
DX: K74.69 Other cirrhosis of liver (principal)
CPT/HCPCS: 36415; 80048; 80076; 80197; 85025; 85610

== ENCOUNTER → 2020-01-07 10:02 | Outpatient (CLI) | payer MEDICARE, SELFPAY ==
--- NOTE | 2020-01-07 10:12 | DI.MRI.S_ITS ---
PROCEDURE: MR ABDOMEN WO/W CON INDICATIONS: Hepatomegaly, not elsewhere classified TECHNIQUE: Coronal HASTE, axial 2D FLASH in- and [id number]; axial breath-hold T2 FSE. Dynamic axial VIBE during the administration of contrast; post-contrast coronal VIBE or 2D FLASH with fat saturation from the hepatic dome to the iliac crests. Optional diffusion weighted imaging and ADC may be performed. COMPARISON: [facility], US, US ABDOMEN LIMITED, 06/26/2019, 9:41. [facility], CT, CT ANGIO CHEST ABDOMEN PELVIS, 12/31/2018, 23:25. [facility], NM, NM PET CT FUSION SKULL 2 THIGH, 01/15/2019, 13:37. [facility], MR, MR ABDOMEN WO/W CON, 11/12/2018, 11:19. [facility], , MR ABDOMEN WO/W CON, 02/13/2018, 11:46. FINDINGS: Image quality: Excellent. Lung bases: No basal pleural effusions. Heart size is normal. Solid organs: Liver is moderately enlarged in size at 19.5 cm craniocaudad, and slightly heterogeneous in its enhancement and nodular in its margination. This may reflect a mild degree of cirrhotic change superimposed. The spleen is not enlarged, however, and no varices or ascites are found. The [id number] gradient T1 imaging does not demonstrate hepatic parenchymal signal suppression as can be seen in the setting of severe fatty infiltration. A hepatic mass is not found. A previously identified gallstone within the gallbladder lumen is again seen, and is not associated with inflammation of the gallbladder or adjacent biliary distension. Biliary system is non dilated. Pancreas is normal in morphology. Spleen is normal in size and enhancement. No adrenal nodules. Both kidneys demonstrate normal size and enhancement, without hydronephrosis. Nodes and vessels: No retroperitoneal or mesenteric adenopathy by size criteria. Aorta and inferior vena cava are normal in size. Bowel and peritoneum: Unenhanced bowel loops are normal in caliber. No free fluid. Bones and soft tissues: No ventral hernias. Bone marrow is normal in overall signal. IMPRESSION: Hepatomegaly, without varices or ascites. No hepatic mass lesion is seen. Mild heterogeneity of the enhancement pattern of the liver may reflect a mild degree of cirrhosis but dense fatty infiltration is not suspected. A moderately large gallstone, calcified, has been documented within the gallbladder lumen but there is no sign of acute cholecystitis or biliary obstruction. Dictated by: Krystian Ward M.D. on 01/07/2020 at 13:30 Approved by: Krystian Ward M.D. on 01/07/2020 at 13:43
[2020-01-07 10:38] LABS: Add Manual Diff / Slide Review NO; Basophils Absolute Auto 100 /uL (0-100); Basophils Percent Auto 0.8 % (0-2); Eosinophils Absolute Auto 100 /uL (0-450); Eosinophils Percent Auto 1.7 % (2-4); Hematocrit 43.3 % (36-46); Hemoglobin 14.3 g/dL (12.0-16.0); Lymphocytes Absolute Auto 2200 /uL (1100-4500); Lymphocytes Percent Auto 33.7 % (25-40); Mean Corpuscular HGB Conc 33.1 % (30-36); Mean Corpuscular Hemoglobin 30.9 PG (26-34); Mean Corpuscular Volume 93.5 fL (80-100); Monocytes Absolute Auto 700 /uL (0-900); Monocytes Percent Auto 10.2 % (3-14); Neutrophils Absolute Auto 3500 /uL (1500-7000); Neutrophils Percent Auto 53.6 % (50-75); Platelet Count 179 X10^3/uL (150-400); Red Blood Cell Count 4.63 X10^6/uL (4.0-5.2); Red Cell Distribution Width 12.9 % (11.6-14.8); White Blood Cell Count 6.4 X10^3/uL (4.5-11.0)
[2020-01-07 11:24] LABS: INR 1.3 (0.9-1.3); Prothrombin Time 14.7 SECONDS (10.1-12.7)
[2020-01-07 11:31] LABS: Alanine Aminotransferase 128 IU/L (<35); Albumin Globulin Ratio 0.8 (1.0-2.8); Alkaline Phosphatase 177 U/L (38-126); Aspartate Aminotransferase 121 IU/L (14-36); BUN Creatinine Ratio 20.2 (6-22); Bilirubin Total 0.7 mg/dL (0.2-1.3); Bilirubin Unconjugated 0.5 mg/dL (0.0-1.1); Blood Urea Nitrogen 20 mg/dL (7-17); Calcium 9.6 mg/dL (8.4-10.2); Carbon Dioxide 26 mmol/L (22-32); Chloride 107 mmol/L (98-107); Estimated Glomerular Filt Rate 54.4 mL/min (>60); Globulin 4.9 g/dL (1.7-4.1); Glucose 143 mg/dL (80-110); HEMOLYSIS 17 (0-50); Potassium 4.7 mmol/L (3.4-5.1); Sodium 138 mmol/L (137-145); Total Protein 8.9 g/dL (6.3-8.2)
[2020-01-08 07:09] LABS: Alpha Fetoprotein 4.5 ng/mL (0.0-8.3)
[2020-01-08 11:09] LABS: Tacrolimus 8.2 ng/mL (2.0-20.0)
== END ==
PROVIDERS: Family Provider Internal Medicine; PCP Internal Medicine; Referring Provider Nurse Practitioner; Visit Provider Nurse Practitioner
DX: R16.0 Hepatomegaly, not elsewhere classified (principal); K75.4 Autoimmune hepatitis; K80.20 Calculus of gallbladder without cholecystitis without obstruction; K74.69 Other cirrhosis of liver
CPT/HCPCS: 36415; 74183; 80048; 80076; 80197; 82105; 85025; 85610; A9579

== ENCOUNTER → 2020-01-24 08:08 | Outpatient (CLI) | payer MEDICARE, SELFPAY ==
[2020-01-24 09:09] LABS: Add Manual Diff / Slide Review NO; Basophils Absolute Auto 100 /uL (0-100); Basophils Percent Auto 0.9 % (0-2); Eosinophils Absolute Auto 100 /uL (0-450); Eosinophils Percent Auto 1.7 % (2-4); Hematocrit 44.3 % (36-46); Hemoglobin 14.7 g/dL (12.0-16.0); Lymphocytes Absolute Auto 1800 /uL (1100-4500); Lymphocytes Percent Auto 29.8 % (25-40); Mean Corpuscular HGB Conc 33.2 % (30-36); Mean Corpuscular Hemoglobin 30.9 PG (26-34); Mean Corpuscular Volume 93.2 fL (80-100); Monocytes Absolute Auto 700 /uL (0-900); Monocytes Percent Auto 10.8 % (3-14); Neutrophils Absolute Auto 3400 /uL (1500-7000); Neutrophils Percent Auto 56.8 % (50-75); Platelet Count 174 X10^3/uL (150-400); Red Blood Cell Count 4.75 X10^6/uL (4.0-5.2); Red Cell Distribution Width 12.9 % (11.6-14.8); White Blood Cell Count 6.1 X10^3/uL (4.5-11.0)
[2020-01-24 09:22] LABS: INR 1.3 (0.9-1.3); Prothrombin Time 14.8 SECONDS (10.1-12.7)
[2020-01-24 09:37] LABS: Alanine Aminotransferase 111 IU/L (<35); Albumin 4.2 g/dL (3.5-5.0); Albumin Globulin Ratio 0.9 (1.0-2.8); Alkaline Phosphatase 184 U/L (38-126); Aspartate Aminotransferase 108 IU/L (14-36); BUN Creatinine Ratio 21.6 (6-22); Bilirubin Total 0.9 mg/dL (0.2-1.3); Bilirubin Unconjugated 0.6 mg/dL (0.0-1.1); Blood Urea Nitrogen 21 mg/dL (7-17); Calcium 9.5 mg/dL (8.4-10.2); Carbon Dioxide 28 mmol/L (22-32); Chloride 107 mmol/L (98-107); Estimated Glomerular Filt Rate 55.7 mL/min (>60); Globulin 4.6 g/dL (1.7-4.1); Glucose 122 mg/dL (80-110); HEMOLYSIS < 15 (0-50); Potassium 4.6 mmol/L (3.4-5.1); Sodium 139 mmol/L (137-145); Total Protein 8.8 g/dL (6.3-8.2)
[2020-01-25 10:09] LABS: Tacrolimus 9.5 ng/mL (2.0-20.0)
== END ==
PROVIDERS: Family Provider Internal Medicine; PCP Internal Medicine; Referring Provider Nurse Practitioner; Visit Provider Nurse Practitioner
DX: K74.69 Other cirrhosis of liver (principal)
CPT/HCPCS: 36415; 80048; 80076; 80197; 85025; 85610

== ENCOUNTER → 2020-02-09 08:24 | Outpatient (CLI) | payer MEDICARE, SELFPAY ==
[2020-02-09 09:28] LABS: Add Manual Diff / Slide Review NO; Basophils Absolute Auto 100 /uL (0-100); Eosinophils Absolute Auto 100 /uL (0-450); Eosinophils Percent Auto 1.3 % (2-4); Hemoglobin 14.5 g/dL (12.0-16.0); Lymphocytes Absolute Auto 1900 /uL (1100-4500); Lymphocytes Percent Auto 30.6 % (25-40); Mean Corpuscular HGB Conc 33.7 % (30-36); Mean Corpuscular Hemoglobin 31.4 PG (26-34); Mean Corpuscular Volume 93.1 fL (80-100); Monocytes Absolute Auto 600 /uL (0-900); Monocytes Percent Auto 9.3 % (3-14); Neutrophils Absolute Auto 3500 /uL (1500-7000); Neutrophils Percent Auto 57.8 % (50-75); Platelet Count 164 X10^3/uL (150-400); Red Blood Cell Count 4.62 X10^6/uL (4.0-5.2); Red Cell Distribution Width 13.1 % (11.6-14.8); White Blood Cell Count 6.1 X10^3/uL (4.5-11.0)
[2020-02-09 09:44] LABS: INR 1.3 (0.9-1.3); Prothrombin Time 14.5 SECONDS (10.1-12.7)
[2020-02-09 09:55] LABS: Alanine Aminotransferase 93 IU/L (<35); Albumin 4.1 g/dL (3.5-5.0); Albumin Globulin Ratio 0.8 (1.0-2.8); Alkaline Phosphatase 168 U/L (38-126); Aspartate Aminotransferase 88 IU/L (14-36); BUN Creatinine Ratio 20.2 (6-22); Bilirubin Total 0.6 mg/dL (0.2-1.3); Bilirubin Unconjugated 0.6 mg/dL (0.0-1.1); Blood Urea Nitrogen 19 mg/dL (7-17); Calcium 9.5 mg/dL (8.4-10.2); Carbon Dioxide 28 mmol/L (22-32); Chloride 104 mmol/L (98-107); Estimated Glomerular Filt Rate 57.7 mL/min (>60); Globulin 4.9 g/dL (1.7-4.1); Glucose 115 mg/dL (80-110); HEMOLYSIS < 15 (0-50); Potassium 4.4 mmol/L (3.4-5.1); Sodium 138 mmol/L (137-145)
[2020-02-10 10:25] LABS: Tacrolimus 8.6 ng/mL (2.0-20.0)
== END ==
PROVIDERS: Family Provider Internal Medicine; PCP Internal Medicine; Referring Provider Nurse Practitioner; Visit Provider Nurse Practitioner
DX: K74.69 Other cirrhosis of liver (principal)
CPT/HCPCS: 36415; 80048; 80076; 80197; 85025; 85610

== ENCOUNTER → 2020-02-28 08:05 | Outpatient (CLI) | payer MEDICARE, SELFPAY ==
[2020-02-28 08:44] LABS: INR 1.3 (0.9-1.3); Prothrombin Time 14.6 SECONDS (10.1-12.7)
[2020-02-28 08:53] LABS: Add Manual Diff / Slide Review NO; Basophils Absolute Auto 100 /uL (0-100); Basophils Percent Auto 0.8 % (0-2); Eosinophils Absolute Auto 100 /uL (0-450); Eosinophils Percent Auto 1.2 % (2-4); Hematocrit 44.2 % (36-46); Hemoglobin 14.8 g/dL (12.0-16.0); Lymphocytes Absolute Auto 2000 /uL (1100-4500); Lymphocytes Percent Auto 29.6 % (25-40); Mean Corpuscular HGB Conc 33.5 % (30-36); Mean Corpuscular Hemoglobin 30.9 PG (26-34); Mean Corpuscular Volume 92.3 fL (80-100); Monocytes Absolute Auto 600 /uL (0-900); Monocytes Percent Auto 8.8 % (3-14); Neutrophils Absolute Auto 4000 /uL (1500-7000); Neutrophils Percent Auto 59.6 % (50-75); Platelet Count 182 X10^3/uL (150-400); Red Blood Cell Count 4.79 X10^6/uL (4.0-5.2); Red Cell Distribution Width 13.1 % (11.6-14.8); White Blood Cell Count 6.8 X10^3/uL (4.5-11.0)
[2020-02-28 09:12] LABS: Alanine Aminotransferase 61 IU/L (<35); Albumin 4.2 g/dL (3.5-5.0); Alkaline Phosphatase 148 U/L (38-126); Aspartate Aminotransferase 67 IU/L (14-36); BUN Creatinine Ratio 21.6 (6-22); Bilirubin Total 0.7 mg/dL (0.2-1.3); Bilirubin Unconjugated 0.7 mg/dL (0.0-1.1); Blood Urea Nitrogen 19 mg/dL (7-17); Calcium 9.4 mg/dL (8.4-10.2); Carbon Dioxide 31 mmol/L (22-32); Chloride 105 mmol/L (98-107); Estimated Glomerular Filt Rate > 60.0 mL/min (>60); Globulin 4.1 g/dL (1.7-4.1); Glucose 117 mg/dL (80-110); HEMOLYSIS < 15 (0-50); Potassium 4.8 mmol/L (3.4-5.1); Sodium 139 mmol/L (137-145); Total Protein 8.3 g/dL (6.3-8.2)
[2020-02-29 10:36] LABS: Tacrolimus 8.3 ng/mL (2.0-20.0)
== END ==
PROVIDERS: Family Provider Internal Medicine; PCP Internal Medicine; Referring Provider Nurse Practitioner; Visit Provider Nurse Practitioner
DX: K74.69 Other cirrhosis of liver (principal)
CPT/HCPCS: 36415; 80048; 80076; 80197; 85025; 85610

== ENCOUNTER → 2020-03-27 07:59 | Outpatient (CLI) | payer MEDICARE, SELFPAY ==
[2020-03-27 08:54] LABS: Add Manual Diff / Slide Review NO; Basophils Absolute Auto 100 /uL (0-100); Basophils Percent Auto 0.9 % (0-2); Eosinophils Absolute Auto 100 /uL (0-450); Eosinophils Percent Auto 1.4 % (2-4); Hematocrit 43.6 % (36-46); Hemoglobin 14.7 g/dL (12.0-16.0); Lymphocytes Absolute Auto 2000 /uL (1100-4500); Lymphocytes Percent Auto 31.5 % (25-40); Mean Corpuscular HGB Conc 33.8 % (30-36); Mean Corpuscular Hemoglobin 31.2 PG (26-34); Mean Corpuscular Volume 92.2 fL (80-100); Monocytes Absolute Auto 600 /uL (0-900); Monocytes Percent Auto 9.3 % (3-14); Neutrophils Absolute Auto 3700 /uL (1500-7000); Neutrophils Percent Auto 56.9 % (50-75); Platelet Count 158 X10^3/uL (150-400); Red Blood Cell Count 4.73 X10^6/uL (4.0-5.2); Red Cell Distribution Width 12.9 % (11.6-14.8); White Blood Cell Count 6.5 X10^3/uL (4.5-11.0)
[2020-03-27 08:58] LABS: INR 1.2 (0.9-1.3); Prothrombin Time 14.1 SECONDS (10.1-12.7)
[2020-03-27 09:05] LABS: Alanine Aminotransferase 56 IU/L (<35); Albumin 4.1 g/dL (3.5-5.0); Albumin Globulin Ratio 1.1 (1.0-2.8); Alkaline Phosphatase 131 U/L (38-126); Aspartate Aminotransferase 64 IU/L (14-36); BUN Creatinine Ratio 18.7 (6-22); Bilirubin Total 0.8 mg/dL (0.2-1.3); Bilirubin Unconjugated 0.7 mg/dL (0.0-1.1); Blood Urea Nitrogen 17 mg/dL (7-17); Calcium 9.7 mg/dL (8.4-10.2); Carbon Dioxide 26 mmol/L (22-32); Chloride 106 mmol/L (98-107); Estimated Glomerular Filt Rate 59.9 mL/min (>60); Globulin 3.9 g/dL (1.7-4.1); Glucose 116 mg/dL (80-110); HEMOLYSIS < 15 (0-50); Potassium 4.6 mmol/L (3.4-5.1); Sodium 138 mmol/L (137-145)
== END ==
PROVIDERS: Family Provider Internal Medicine; PCP Internal Medicine; Referring Provider Nurse Practitioner; Visit Provider Nurse Practitioner
DX: K74.69 Other cirrhosis of liver (principal)
CPT/HCPCS: 36415; 80048; 80076; 80197; 85025; 85610

== ENCOUNTER → 2020-04-24 07:58 | Outpatient (CLI) | payer MEDICARE, SELFPAY ==
[2020-04-24 08:56] LABS: Add Manual Diff / Slide Review NO; Basophils Absolute Auto 0 /uL (0-100); Basophils Percent Auto 0.6 % (0-2); Eosinophils Absolute Auto 100 /uL (0-450); Eosinophils Percent Auto 2.1 % (2-4); Hemoglobin 14.7 g/dL (12.0-16.0); Lymphocytes Absolute Auto 1500 /uL (1100-4500); Lymphocytes Percent Auto 25.6 % (25-40); Mean Corpuscular HGB Conc 33.4 % (30-36); Mean Corpuscular Hemoglobin 30.9 PG (26-34); Mean Corpuscular Volume 92.7 fL (80-100); Monocytes Absolute Auto 400 /uL (0-900); Monocytes Percent Auto 7.3 % (3-14); Neutrophils Absolute Auto 3900 /uL (1500-7000); Neutrophils Percent Auto 64.4 % (50-75); Platelet Count 155 X10^3/uL (150-400); Red Blood Cell Count 4.74 X10^6/uL (4.0-5.2); Red Cell Distribution Width 13.2 % (11.6-14.8)
[2020-04-24 09:02] LABS: INR 1.3 (0.9-1.3); Prothrombin Time 14.3 SECONDS (10.1-12.7)
[2020-04-24 09:07] LABS: Alanine Aminotransferase 43 IU/L (<35); Albumin 4.1 g/dL (3.5-5.0); Albumin Globulin Ratio 1.1 (1.0-2.8); Alkaline Phosphatase 107 U/L (38-126); Aspartate Aminotransferase 53 IU/L (14-36); BUN Creatinine Ratio 21.6 (6-22); Bilirubin Total 0.5 mg/dL (0.2-1.3); Bilirubin Unconjugated 0.5 mg/dL (0.0-1.1); Blood Urea Nitrogen 19 mg/dL (7-17); Calcium 9.2 mg/dL (8.4-10.2); Carbon Dioxide 26 mmol/L (22-32); Chloride 108 mmol/L (98-107); Estimated Glomerular Filt Rate > 60.0 mL/min (>60); Globulin 3.8 g/dL (1.7-4.1); Glucose 116 mg/dL (80-110); HEMOLYSIS < 15 (0-50); Potassium 4.4 mmol/L (3.4-5.1); Sodium 140 mmol/L (137-145); Total Protein 7.9 g/dL (6.3-8.2)
[2020-04-24 09:08] LABS: Cholesterol 166 mg/dL (140-199); HDL Cholesterol 67 mg/dL (40-60); LDL Cholesterol Calculated 86 mg/dL (<100); Triglycerides 64 mg/dL (35-150)
[2020-04-24 11:03] LABS: TSH w/ Reflex to FT4 2.18 uIU/mL (0.47-4.68)
[2020-04-25 10:36] LABS: Tacrolimus 8.7 ng/mL (2.0-20.0)
== END ==
PROVIDERS: Nurse Practitioner; Family Provider Internal Medicine; PCP Internal Medicine; Referring Provider Internal Medicine; Visit Provider Internal Medicine
DX: K75.4 Autoimmune hepatitis (principal); E03.9 Hypothyroidism, unspecified; E78.00 Pure hypercholesterolemia, unspecified; K74.69 Other cirrhosis of liver
CPT/HCPCS: 36415; 80048; 80061; 80076; 80197; 84443; 85025; 85610

== ENCOUNTER → 2020-05-12 12:47 | Outpatient (CLI) | payer MEDICARE, SELFPAY ==
--- NOTE | 2020-05-12 13:58 | DI.RAD.S_ITS ---
PROCEDURE: XR DEXA AXIAL SKELETON INDICATIONS: ROUTINE SCREENING COMPARISON: [facility], CR, XR DEXA AXIAL SKELETON, 12/10/2017, 13:32. FINDINGS: This blank DEXA report has been sent in error by the PACS system. The correct and complete report will be forthcoming in 1-2 days. Thank you for your patience and understanding. Dictated by: Meagan Rose MD, PhD on 05/12/2020 at 16:22 Approved by: Meagan Rose MD, PhD on 05/12/2020 at 16:22
== END ==
PROVIDERS: Family Provider Internal Medicine; PCP Internal Medicine; Referring Provider Internal Medicine; Visit Provider Internal Medicine
DX: M85.852 Other specified disorders of bone density and structure, left thigh (principal)
CPT/HCPCS: 77080

== ENCOUNTER → 2020-05-29 07:48 | Outpatient (CLI) | payer MEDICARE, SELFPAY ==
[2020-05-29 10:00] LABS: Add Manual Diff / Slide Review NO; Basophils Absolute Auto 0 /uL (0-100); Basophils Percent Auto 0.5 % (0-2); Eosinophils Absolute Auto 100 /uL (0-450); Eosinophils Percent Auto 1.9 % (2-4); Hematocrit 43.4 % (36-46); Hemoglobin 14.6 g/dL (12.0-16.0); Lymphocytes Absolute Auto 1700 /uL (1100-4500); Lymphocytes Percent Auto 27.9 % (25-40); Mean Corpuscular HGB Conc 33.6 % (30-36); Mean Corpuscular Hemoglobin 31.4 PG (26-34); Mean Corpuscular Volume 93.4 fL (80-100); Monocytes Absolute Auto 500 /uL (0-900); Monocytes Percent Auto 8.8 % (3-14); Neutrophils Absolute Auto 3600 /uL (1500-7000); Neutrophils Percent Auto 60.9 % (50-75); Platelet Count 168 X10^3/uL (150-400); Red Blood Cell Count 4.64 X10^6/uL (4.0-5.2); Red Cell Distribution Width 13.4 % (11.6-14.8)
[2020-05-29 10:06] LABS: INR 1.2 (0.9-1.3)
[2020-05-29 10:15] LABS: Alanine Aminotransferase 38 IU/L (<35); Albumin 4.1 g/dL (3.5-5.0); Albumin Globulin Ratio 1.2 (1.0-2.8); Alkaline Phosphatase 99 U/L (38-126); Aspartate Aminotransferase 52 IU/L (14-36); BUN Creatinine Ratio 18.3 (6-22); Bilirubin Total 0.8 mg/dL (0.2-1.3); Bilirubin Unconjugated 0.8 mg/dL (0.0-1.1); Blood Urea Nitrogen 17 mg/dL (7-17); Calcium 9.8 mg/dL (8.4-10.2); Carbon Dioxide 26 mmol/L (22-32); Chloride 106 mmol/L (98-107); Estimated Glomerular Filt Rate 58.5 mL/min (>60); Globulin 3.5 g/dL (1.7-4.1); Glucose 113 mg/dL (80-110); HEMOLYSIS < 15 (0-50); Potassium 4.5 mmol/L (3.4-5.1); Sodium 140 mmol/L (137-145); Total Protein 7.6 g/dL (6.3-8.2)
[2020-05-30 12:14] LABS: Tacrolimus 8.7 ng/mL (2.0-20.0)
== END ==
PROVIDERS: Family Provider Internal Medicine; PCP Internal Medicine; Referring Provider Nurse Practitioner; Visit Provider Nurse Practitioner
DX: K74.69 Other cirrhosis of liver (principal)
CPT/HCPCS: 36415; 80048; 80076; 80197; 85025; 85610

== ENCOUNTER → 2020-07-03 08:07 | Outpatient (CLI) | payer MEDICARE, SELFPAY ==
[2020-07-03 09:16] LABS: Add Manual Diff / Slide Review NO; Basophils Absolute Auto 0 /uL (0-100); Basophils Percent Auto 0.7 % (0-2); Eosinophils Absolute Auto 100 /uL (0-450); Eosinophils Percent Auto 1.9 % (2-4); Hemoglobin 14.7 g/dL (12.0-16.0); Lymphocytes Absolute Auto 1900 /uL (1100-4500); Lymphocytes Percent Auto 30.8 % (25-40); Mean Corpuscular HGB Conc 33.4 % (30-36); Mean Corpuscular Hemoglobin 31.6 PG (26-34); Mean Corpuscular Volume 94.6 fL (80-100); Monocytes Absolute Auto 600 /uL (0-900); Monocytes Percent Auto 9.4 % (3-14); Neutrophils Absolute Auto 3500 /uL (1500-7000); Neutrophils Percent Auto 57.2 % (50-75); Platelet Count 172 X10^3/uL (150-400); Red Blood Cell Count 4.66 X10^6/uL (4.0-5.2); Red Cell Distribution Width 13.1 % (11.6-14.8); White Blood Cell Count 6.1 X10^3/uL (4.5-11.0)
[2020-07-03 09:26] LABS: INR 1.3 (0.9-1.3); Prothrombin Time 14.6 SECONDS (10.1-12.7)
[2020-07-03 09:30] LABS: Alanine Aminotransferase 27 IU/L (<35); Albumin 4.1 g/dL (3.5-5.0); Albumin Globulin Ratio 1.2 (1.0-2.8); Alkaline Phosphatase 85 U/L (38-126); Aspartate Aminotransferase 42 IU/L (14-36); BUN Creatinine Ratio 19.6 (6-22); Bilirubin Total 0.7 mg/dL (0.2-1.3); Bilirubin Unconjugated 0.7 mg/dL (0.0-1.1); Blood Urea Nitrogen 19 mg/dL (7-17); Calcium 9.6 mg/dL (8.4-10.2); Carbon Dioxide 27 mmol/L (22-32); Chloride 106 mmol/L (98-107); Estimated Glomerular Filt Rate 55.7 mL/min (>60); Globulin 3.5 g/dL (1.7-4.1); Glucose 115 mg/dL (80-110); HEMOLYSIS < 15 (0-50); Potassium 4.6 mmol/L (3.4-5.1); Sodium 141 mmol/L (137-145); Total Protein 7.6 g/dL (6.3-8.2)
[2020-07-04 20:32] LABS: Alpha Fetoprotein 4.7 ng/mL (0.0-8.3); Tacrolimus 7.1 ng/mL (2.0-20.0)
== END ==
PROVIDERS: Family Provider Internal Medicine; PCP Internal Medicine; Referring Provider Nurse Practitioner; Visit Provider Nurse Practitioner
DX: K74.69 Other cirrhosis of liver (principal)
CPT/HCPCS: 36415; 80048; 80076; 80197; 82105; 85025; 85610

== ENCOUNTER → 2020-07-07 07:37 | Outpatient (CLI) | payer MEDICARE, SELFPAY ==
--- NOTE | 2020-07-07 | DI.US.S_ITS ---
PROCEDURE: US ABDOMEN LIMITED INDICATIONS: CIRRHOSIS TECHNIQUE: Real-time scanning was performed of the right upper quadrant, with image documentation. COMPARISON: [facility], MR, MR ABDOMEN WO/W CON, 01/07/2020, 10:48. [facility], US, US ABDOMEN LIMITED, 06/26/2019, 9:41. FINDINGS: Liver: Mildly prominent size. Coarsened echotexture. Increased in echogenicity. Main portal vein measures 11 mm in diameter. There is expected hepatopetal flow. Gallbladder: Nondilated. Mobile gallstone measuring 2.1 cm. Normal gallbladder wall thickness. No pericholecystic fluid. Negative sonographic St's sign. Biliary ducts: Intrahepatic bile ducts are non-dilated. Extrahepatic bile duct caliber measures 3 mm. Normal is 6-7 mm or less in diameter, or 10 mm or less post-cholecystectomy. Pancreas: Visualized portions of the pancreas are sonographically normal. Spleen: Measures 9.5 cm in length. Kidneys: No hydronephrosis. The left renal pelvis is mildly dilated as before. This could be due to extrarenal pelvis. There is an incidental mildly complex left renal cyst at the inferior pole with thin septations measuring 1.5 x 1.3 x 1 cm. IMPRESSION: 1. Liver surface appears nodular. There is increased echogenicity. The portal vein is prominent size. These findings are concerning for cirrhosis. 2. No acute cholecystitis. Mobile gallstone. 3. No splenomegaly. 4. Incidental mildly complicated left kidney inferior pole cyst measuring 1.5 cm. Dictated by: Lalit Andres M.D. on 07/07/2020 at 9:50 Approved by: Lalit Andres M.D. on 07/07/2020 at 9:56
== END ==
PROVIDERS: Family Provider Internal Medicine; PCP Internal Medicine; Referring Provider Nurse Practitioner; Visit Provider Nurse Practitioner
DX: K74.69 Other cirrhosis of liver (principal)
CPT/HCPCS: 76705

== ENCOUNTER → 2020-10-05 12:08 | Outpatient (CLI) | payer MEDICARE, SELFPAY ==
[2020-10-05 13:01] LABS: Add Manual Diff / Slide Review NO; Basophils Absolute Auto 0 /uL (0-100); Basophils Percent Auto 0.3 % (0-2); Eosinophils Absolute Auto 100 /uL (0-450); Eosinophils Percent Auto 0.9 % (2-4); Hematocrit 41.5 % (36-46); Hemoglobin 13.8 g/dL (12.0-16.0); Lymphocytes Absolute Auto 1400 /uL (1100-4500); Mean Corpuscular HGB Conc 33.4 % (30-36); Mean Corpuscular Hemoglobin 31.5 PG (26-34); Mean Corpuscular Volume 94.3 fL (80-100); Monocytes Absolute Auto 600 /uL (0-900); Monocytes Percent Auto 9.5 % (3-14); Neutrophils Absolute Auto 4100 /uL (1500-7000); Neutrophils Percent Auto 66.3 % (50-75); Platelet Count 177 X10^3/uL (150-400); Red Cell Distribution Width 12.7 % (11.6-14.8); White Blood Cell Count 6.2 X10^3/uL (4.5-11.0)
[2020-10-05 13:32] LABS: INR 1.3 (0.9-1.3); Prothrombin Time 14.6 SECONDS (10.1-12.7)
[2020-10-05 13:49] LABS: Alanine Aminotransferase 35 IU/L (<35); Albumin 4.3 g/dL (3.5-5.0); Albumin Globulin Ratio 1.4 (1.0-2.8); Alkaline Phosphatase 97 U/L (38-126); Aspartate Aminotransferase 44 IU/L (14-36); BUN Creatinine Ratio 19.4 (6-22); Bilirubin Total 0.9 mg/dL (0.2-1.3); Bilirubin Unconjugated 0.6 mg/dL (0.0-1.1); Blood Urea Nitrogen 20 mg/dL (7-17); Carbon Dioxide 25 mmol/L (22-32); Chloride 107 mmol/L (98-107); Globulin 3.1 g/dL (1.7-4.1); Glucose 100 mg/dL (80-110); HEMOLYSIS < 15 (0-50); Potassium 4.9 mmol/L (3.4-5.1); Sodium 140 mmol/L (137-145); Total Protein 7.4 g/dL (6.3-8.2)
[2020-10-06 12:11] LABS: Tacrolimus 11.5 ng/mL (2.0-20.0)
== END ==
PROVIDERS: Family Provider Internal Medicine; PCP Internal Medicine; Referring Provider Nurse Practitioner; Visit Provider Nurse Practitioner
DX: K74.69 Other cirrhosis of liver (principal)
CPT/HCPCS: 36415; 80048; 80076; 80197; 85025; 85610

== ENCOUNTER → 2020-11-25 15:21 | Outpatient (CLI) | payer MEDICARE, SELFPAY ==
--- NOTE | 2020-11-25 15:23 | DI.MG.S_ITS ---
BILATERAL DIGITAL SCREENING MAMMOGRAM 3D/2D WITH CAD: 11/25/2020 CLINICAL: Routine screening. Family history of breast cancer. Comparison is made to exams dated: 11/12/2018 mammogram, 11/05/2017 mammogram, 11/09/2015 mammogram, and 11/19/2013 mammogram - [facility]. There are scattered fibroglandular elements in both breasts. Current study was also evaluated with a Computer Aided Detection (CAD) system. There are benign calcifications in both breasts. There also are benign vascular calcifications in both breasts. No significant masses, calcifications, or other findings are seen in either breast. There has been no significant interval change. IMPRESSION: BENIGN There is no mammographic evidence of malignancy. A 1 year screening mammogram is recommended. This exam was interpreted at Station ID: [id number]. NOTE: For mammograms, a report in lay terms will be sent to the patient. Approximately 15% of breast malignancies will not be visualized mammographically. In the management of a palpable breast mass, a negative mammogram must not discourage biopsy of a clinically suspicious lesion. Electronically Signed By: Lalit moran/jennifer:11/25/2020 16:43:19 letter sent: Normal Exam ACR BI-RADS Category 2: Benign Finding(s) 3342F
== END ==
PROVIDERS: Family Provider Internal Medicine; PCP Internal Medicine; Referring Provider Internal Medicine; Visit Provider Internal Medicine
DX: Z12.31 Encounter for screening mammogram for malignant neoplasm of breast (principal); Z80.3 Family history of malignant neoplasm of breast
CPT/HCPCS: 77063; 77067

== ENCOUNTER → 2021-01-08 07:58 | Outpatient (CLI) | payer MEDICARE, SELFPAY ==
[2021-01-08 09:22] LABS: Add Manual Diff / Slide Review NO; Basophils Absolute Auto 0 /uL (0-100); Basophils Percent Auto 0.8 % (0-2); Eosinophils Absolute Auto 100 /uL (0-450); Eosinophils Percent Auto 1.5 % (2-4); Hematocrit 40.2 % (36-46); Hemoglobin 13.8 g/dL (12.0-16.0); Lymphocytes Absolute Auto 1300 /uL (1100-4500); Lymphocytes Percent Auto 27.2 % (25-40); Mean Corpuscular HGB Conc 34.3 % (30-36); Mean Corpuscular Hemoglobin 31.8 PG (26-34); Mean Corpuscular Volume 92.8 fL (80-100); Monocytes Absolute Auto 500 /uL (0-900); Monocytes Percent Auto 10.1 % (3-14); Neutrophils Absolute Auto 2900 /uL (1500-7000); Neutrophils Percent Auto 60.4 % (50-75); Platelet Count 155 X10^3/uL (150-400); Red Blood Cell Count 4.33 X10^6/uL (4.0-5.2); Red Cell Distribution Width 12.3 % (11.6-14.8); White Blood Cell Count 4.8 X10^3/uL (4.5-11.0)
[2021-01-08 09:52] LABS: INR 1.3 (0.9-1.3); Prothrombin Time 14.5 SECONDS (10.1-12.7)
[2021-01-08 09:57] LABS: Alanine Aminotransferase 21 IU/L (<35); Albumin Globulin Ratio 1.3 (1.0-2.8); Alkaline Phosphatase 63 U/L (38-126); Aspartate Aminotransferase 35 IU/L (14-36); BUN Creatinine Ratio 20.2 (6-22); Bilirubin Total 0.8 mg/dL (0.2-1.3); Bilirubin Unconjugated 0.7 mg/dL (0.0-1.1); Blood Urea Nitrogen 21 mg/dL (7-17); Calcium 9.7 mg/dL (8.4-10.2); Carbon Dioxide 29 mmol/L (22-32); Chloride 104 mmol/L (98-107); Estimated Glomerular Filt Rate 51.3 mL/min (>60); Glucose 103 mg/dL (80-110); HEMOLYSIS < 15 (0-50); Potassium 4.4 mmol/L (3.4-5.1); Sodium 140 mmol/L (137-145)
[2021-01-09 09:04] LABS: Alpha Fetoprotein 4.6 ng/mL (0.0-8.3)
== END ==
PROVIDERS: Family Provider Internal Medicine; PCP Internal Medicine; Referring Provider Nurse Practitioner; Visit Provider Nurse Practitioner
DX: K75.4 Autoimmune hepatitis (principal); K74.69 Other cirrhosis of liver
CPT/HCPCS: 36415; 80048; 80076; 82105; 85025; 85610

== ENCOUNTER → 2021-01-13 10:07 | Outpatient (CLI) | payer MEDICARE, SELFPAY ==
--- NOTE | 2021-01-13 | DI.US.S_ITS ---
PROCEDURE: US ABDOMEN LIMITED INDICATIONS: AUTOIMMUNE HEPATITIS TECHNIQUE: Real-time focused scanning was performed of the abdomen, with image documentation. COMPARISON: [facility], , US ABDOMEN LIMITED, 06/26/2019, 9:41. [facility], , US ABDOMEN LIMITED, 07/07/2020, 8:03. FINDINGS: Diffusely increased hepatic parenchymal echogenicity with coarsened hepatic echotexture and microlobulated/nodular margin. The liver is normal in size. The main portal vein and hepatic veins appear patent and normal in size. No liver mass identified. No intrahepatic or extrahepatic biliary ductal dilatation. IMPRESSION: Cirrhotic liver morphology as seen on the prior study. No liver mass. Patent hepatic and portal veins. Dictated by: Luis Andrews M.D. on 01/13/2021 at 13:41 Approved by: Luis Andrews M.D. on 01/13/2021 at 13:45
== END ==
PROVIDERS: Family Provider Internal Medicine; Referring Provider Nurse Practitioner; Visit Provider Nurse Practitioner
DX: K75.4 Autoimmune hepatitis (principal)
CPT/HCPCS: 76705

== ENCOUNTER → 2021-01-15 07:53 | Outpatient (CLI) | payer MEDICARE, SELFPAY | PROVIDERS: Family Provider Internal Medicine; Referring Provider Nurse Practitioner; Visit Provider Nurse Practitioner | DX: K75.4 Autoimmune hepatitis (principal) | CPT/HCPCS: 36415; 80197 ==

== ENCOUNTER → 2021-03-09 10:10 | Outpatient (CLI) | payer MEDICARE, SELFPAY ==
[2021-03-09 11:07] LABS: Add Manual Diff / Slide Review NO; Basophils Absolute Auto 0 /uL (0-100); Basophils Percent Auto 0.6 % (0-2); Eosinophils Absolute Auto 100 /uL (0-450); Hematocrit 41.3 % (36-46); Hemoglobin 13.9 g/dL (12.0-16.0); Lymphocytes Absolute Auto 1300 /uL (1100-4500); Lymphocytes Percent Auto 24.3 % (25-40); Mean Corpuscular HGB Conc 33.8 % (30-36); Mean Corpuscular Hemoglobin 31.3 PG (26-34); Mean Corpuscular Volume 92.8 fL (80-100); Monocytes Absolute Auto 600 /uL (0-900); Monocytes Percent Auto 11.3 % (3-14); Neutrophils Absolute Auto 3300 /uL (1500-7000); Neutrophils Percent Auto 62.8 % (50-75); Platelet Count 166 X10^3/uL (150-400); Red Blood Cell Count 4.45 X10^6/uL (4.0-5.2); Red Cell Distribution Width 12.6 % (11.6-14.8); White Blood Cell Count 5.2 X10^3/uL (4.5-11.0)
[2021-03-09 11:59] LABS: Hemoglobin A1C% w Est Avg Glu 5.9 % (4.0-6.0)
[2021-03-09 13:21] LABS: Alanine Aminotransferase 28 IU/L (<35); Albumin 4.2 g/dL (3.5-5.0); Albumin Globulin Ratio 1.4 (1.0-2.8); Alkaline Phosphatase 70 U/L (38-126); Aspartate Aminotransferase 40 IU/L (14-36); BUN Creatinine Ratio 18.3 (6-22); Bilirubin Total 0.8 mg/dL (0.2-1.3); Blood Urea Nitrogen 19 mg/dL (7-17); Calcium 9.9 mg/dL (8.4-10.2); Carbon Dioxide 26 mmol/L (22-32); Chloride 107 mmol/L (98-107); Cholesterol 164 mg/dL (140-199); Estimated Glomerular Filt Rate 51.3 mL/min (>60); Globulin 3.1 g/dL (1.7-4.1); Glucose 113 mg/dL (80-110); HDL Cholesterol 79 mg/dL (40-60); HEMOLYSIS < 15 (0-50); LDL Cholesterol Calculated 71 mg/dL (<100); Potassium 4.6 mmol/L (3.4-5.1); Sodium 140 mmol/L (137-145); Total Protein 7.3 g/dL (6.3-8.2); Triglycerides 69 mg/dL (35-150); Uric Acid 4.8 mg/dL (2.5-6.2)
[2021-03-09 13:40] LABS: Free T4, Direct Thyroxine 1.34 ng/dL (0.78-2.19)
[2021-03-09 13:54] LABS: Thyroid Stimulating Hormone 1.62 uIU/mL (0.47-4.68)
== END ==
PROVIDERS: Family Provider Internal Medicine; PCP Internal Medicine; Referring Provider Orthopaedic Surgery; Visit Provider Orthopaedic Surgery
DX: E03.9 Hypothyroidism, unspecified (principal); R73.9 Hyperglycemia, unspecified; Z01.818 Encounter for other preprocedural examination; E78.2 Mixed hyperlipidemia; I10 Essential (primary) hypertension; K75.4 Autoimmune hepatitis; Z01.812 Encounter for preprocedural laboratory examination; E79.0 Hyperuricemia without signs of inflammatory arthritis and tophaceous disease
CPT/HCPCS: 36415; 80053; 80061; 83036; 84439; 84443; 84550; 85025; 93005

== ENCOUNTER → 2021-04-23 07:53 | Outpatient (CLI) | payer MEDICARE, SELFPAY ==
[2021-04-23 09:35] LABS: Add Manual Diff / Slide Review NO; Basophils Absolute Auto 100 /uL (0-100); Basophils Percent Auto 0.9 % (0-2); Eosinophils Absolute Auto 100 /uL (0-450); Eosinophils Percent Auto 1.6 % (2-4); Hematocrit 39.7 % (36-46); Hemoglobin 13.2 g/dL (12.0-16.0); Lymphocytes Absolute Auto 1500 /uL (1100-4500); Lymphocytes Percent Auto 25.8 % (25-40); Mean Corpuscular HGB Conc 33.3 % (30-36); Mean Corpuscular Hemoglobin 31.2 PG (26-34); Mean Corpuscular Volume 93.5 fL (80-100); Monocytes Absolute Auto 500 /uL (0-900); Neutrophils Absolute Auto 3500 /uL (1500-7000); Neutrophils Percent Auto 62.7 % (50-75); Platelet Count 185 X10^3/uL (150-400); Red Blood Cell Count 4.25 X10^6/uL (4.0-5.2); Red Cell Distribution Width 12.7 % (11.6-14.8); White Blood Cell Count 5.7 X10^3/uL (4.5-11.0)
[2021-04-23 09:42] LABS: INR 1.2 (0.9-1.3); Prothrombin Time 13.9 SECONDS (10.1-12.7)
[2021-04-23 09:48] LABS: Alanine Aminotransferase 22 IU/L (<35); Albumin 4.1 g/dL (3.5-5.0); Albumin Globulin Ratio 1.2 (1.0-2.8); Alkaline Phosphatase 90 U/L (38-126); Aspartate Aminotransferase 38 IU/L (14-36); BUN Creatinine Ratio 26.4 (6-22); Bilirubin Total 0.7 mg/dL (0.2-1.3); Bilirubin Unconjugated 0.6 mg/dL (0.0-1.1); Blood Urea Nitrogen 24 mg/dL (7-17); Calcium 9.1 mg/dL (8.4-10.2); Carbon Dioxide 26 mmol/L (22-32); Chloride 107 mmol/L (98-107); Estimated Glomerular Filt Rate 59.8 mL/min (>60); Globulin 3.5 g/dL (1.7-4.1); Glucose 108 mg/dL (80-110); HEMOLYSIS < 15 (0-50); Potassium 4.4 mmol/L (3.4-5.1); Sodium 139 mmol/L (137-145); Total Protein 7.6 g/dL (6.3-8.2)
[2021-04-24 06:28] LABS: Tacrolimus 5.6 ng/mL (2.0-20.0)
== END ==
PROVIDERS: Family Provider Internal Medicine; PCP Internal Medicine; Referring Provider Nurse Practitioner; Visit Provider Nurse Practitioner
DX: K75.4 Autoimmune hepatitis (principal)
CPT/HCPCS: 36415; 80048; 80076; 80197; 82105; 85025; 85610

== ENCOUNTER → 2021-08-06 07:39 | Outpatient (CLI) | payer MEDICARE, SELFPAY ==
[2021-08-06 09:02] LABS: Add Manual Diff / Slide Review NO; Basophils Absolute Auto 0 /uL (0-100); Basophils Percent Auto 0.6 % (0-2); Eosinophils Absolute Auto 0 /uL (0-450); Eosinophils Percent Auto 1.3 % (2-4); Hematocrit 39.4 % (36-46); Hemoglobin 13.4 g/dL (12.0-16.0); Lymphocytes Absolute Auto 900 /uL (1100-4500); Lymphocytes Percent Auto 30.7 % (25-40); Mean Corpuscular HGB Conc 33.9 % (30-36); Mean Corpuscular Hemoglobin 30.4 PG (26-34); Mean Corpuscular Volume 89.6 fL (80-100); Monocytes Absolute Auto 300 /uL (0-900); Monocytes Percent Auto 10.5 % (3-14); Neutrophils Absolute Auto 1600 /uL (1500-7000); Neutrophils Percent Auto 56.9 % (50-75); Platelet Count 156 X10^3/uL (150-400); Red Cell Distribution Width 12.6 % (11.6-14.8); White Blood Cell Count 2.8 X10^3/uL (4.5-11.0)
[2021-08-06 09:13] LABS: INR 1.3 (0.9-1.3); Prothrombin Time 14.3 SECONDS (10.1-12.7)
[2021-08-06 09:21] LABS: Alanine Aminotransferase 27 IU/L (<35); Albumin Globulin Ratio 1.2 (1.0-2.8); Alkaline Phosphatase 61 U/L (38-126); Aspartate Aminotransferase 51 IU/L (14-36); BUN Creatinine Ratio 13.9 (6-22); Bilirubin Total 0.8 mg/dL (0.2-1.3); Bilirubin Unconjugated 0.7 mg/dL (0.0-1.1); Blood Urea Nitrogen 15 mg/dL (7-17); Calcium 9.2 mg/dL (8.4-10.2); Carbon Dioxide 27 mmol/L (22-32); Chloride 105 mmol/L (98-107); Estimated Glomerular Filt Rate 53 mL/min (>60); Globulin 3.4 g/dL (1.7-4.1); Glucose 224 mg/dL (80-110); HEMOLYSIS < 15 (0-50); Potassium 4.1 mmol/L (3.4-5.1); Sodium 139 mmol/L (137-145); Total Protein 7.4 g/dL (6.3-8.2)
[2021-08-07 11:09] LABS: Alpha Fetoprotein 2.7 ng/mL (0.0-9.2)
== END ==
PROVIDERS: Family Provider Internal Medicine; PCP Internal Medicine; Referring Provider Nurse Practitioner; Visit Provider Nurse Practitioner
DX: K75.4 Autoimmune hepatitis (principal); K74.69 Other cirrhosis of liver
CPT/HCPCS: 36415; 80048; 80076; 82105; 85025; 85610

== ENCOUNTER → 2021-08-09 09:45 | Outpatient (CLI) | payer MEDICARE, SELFPAY ==
[2021-08-09 11:02] LABS: Amylase 83 U/L (30-110); C-Reactive Protein Quant 0.8 mg/dL (<1.0); Lipase 122 U/L (23-300)
[2021-08-09 11:05] LABS: Erythrocyte Sedimentation Rate 20 MM/HR (0-20)
[2021-08-09 11:14] LABS: Free T4, Direct Thyroxine 1.55 ng/dL (0.78-2.19)
[2021-08-11 06:35] LABS: Alpha Fetoprotein 3.2 ng/mL (0.0-9.2)
== END ==
PROVIDERS: Family Provider Internal Medicine; PCP Internal Medicine; Referring Provider Internal Medicine; Visit Provider Internal Medicine
DX: E03.9 Hypothyroidism, unspecified (principal); K75.4 Autoimmune hepatitis; R63.4 Abnormal weight loss; R11.0 Nausea
CPT/HCPCS: 36415; 82105; 82150; 83690; 84439; 84443; 85651; 86140

== ENCOUNTER → 2021-08-11 08:04 | Outpatient (CLI) | payer MEDICARE, SELFPAY ==
--- NOTE | 2021-08-11 08:05 | DI.US.S_ITS ---
PROCEDURE: US ABDOMEN COMPLETE INDICATIONS: autoimmune hepatitis TECHNIQUE: Real-time scanning was performed of the abdominal and retroperitoneal organs, with image documentation. COMPARISON: [facility], , US ABDOMEN LIMITED, 01/13/2021, 10:14. FINDINGS: Liver: The liver measures 13.3 cm in length and demonstrates increased echotexture throughout. Gallbladder: The gallbladder wall measures 2.8 mm in diameter. There is likely a Phrygian cap present. A nonmobile gallstone or a polyp is visualized on the gallbladder wall which measures 0.8 cm in diameter. Biliary ducts: Intrahepatic bile ducts are non-dilated. Extrahepatic bile duct caliber measures 2.7 mm. Normal is 6-7 mm or less in diameter, or 10 mm or less post-cholecystectomy. Pancreas: Visualized portions of the pancreas are sonographically normal. Spleen: Spleen is normal in size and homogeneous in echotexture. Kidneys: Kidneys are normal in size and echotexture. Right kidney measures 9.1 cm long; left kidney measures 10.4 cm long. No right hydronephrosis. There is left hydronephrosis which resolves after voiding. Aorta: Visualized aorta is normal in caliber at less than 3 cm. Iliacs: Proximal common iliac arteries are normal in caliber at less than 2.5 cm. IVC: Intrahepatic inferior vena cava is patent. Miscellaneous: No free abdominal fluid. IMPRESSION: 1. Questionable 8 mm gallbladder polyp. Annual sonographic follow-up recommended for polyps over 6 mm. 2. Increased hepatic echogenicity noted likely cirrhotic transformation but other sources of hepatocellular disease cannot be excluded. 3. Left hydronephrosis on prevoid images. The hydronephrosis resolves after the patient voids. Dictated by: Violet Kemp M.D. on 08/11/2021 at 10:27 Approved by: Violet Kemp M.D. on 08/11/2021 at 10:31
== END ==
PROVIDERS: Family Provider Internal Medicine; PCP Internal Medicine; Referring Provider Internal Medicine; Visit Provider Internal Medicine
DX: K74.60 Unspecified cirrhosis of liver (principal); K75.4 Autoimmune hepatitis; I10 Essential (primary) hypertension
CPT/HCPCS: 76700

== ENCOUNTER → 2021-08-24 10:34 | Outpatient (CLI) | payer MEDICARE, SELFPAY ==
[2021-08-24 11:39] LABS: Add Manual Diff / Slide Review NO; Basophils Absolute Auto 0 /uL (0-100); Basophils Percent Auto 0.7 % (0-2); Eosinophils Absolute Auto 100 /uL (0-450); Eosinophils Percent Auto 1.6 % (2-4); Hematocrit 37.2 % (36-46); Hemoglobin 12.4 g/dL (12.0-16.0); Lymphocytes Absolute Auto 1200 /uL (1100-4500); Lymphocytes Percent Auto 21.7 % (25-40); Mean Corpuscular HGB Conc 33.2 % (30-36); Mean Corpuscular Hemoglobin 30.3 PG (26-34); Mean Corpuscular Volume 91.1 fL (80-100); Monocytes Absolute Auto 500 /uL (0-900); Monocytes Percent Auto 9.6 % (3-14); Neutrophils Absolute Auto 3800 /uL (1500-7000); Neutrophils Percent Auto 66.4 % (50-75); Platelet Count 202 X10^3/uL (150-400); Red Blood Cell Count 4.08 X10^6/uL (4.0-5.2); Red Cell Distribution Width 12.9 % (11.6-14.8); White Blood Cell Count 5.7 X10^3/uL (4.5-11.0)
[2021-08-24 12:11] LABS: Alanine Aminotransferase 24 IU/L (<35); Albumin 3.6 g/dL (3.5-5.0); Albumin Globulin Ratio 1.2 (1.0-2.8); Alkaline Phosphatase 68 U/L (38-126); Aspartate Aminotransferase 35 IU/L (14-36); BUN Creatinine Ratio 14.7 (6-22); Bilirubin Total 0.9 mg/dL (0.2-1.3); Bilirubin Unconjugated 0.7 mg/dL (0.0-1.1); Blood Urea Nitrogen 15 mg/dL (7-17); Calcium 9.1 mg/dL (8.4-10.2); Carbon Dioxide 25 mmol/L (22-32); Chloride 105 mmol/L (98-107); Estimated Glomerular Filt Rate 56 mL/min (>60); Globulin 2.9 g/dL (1.7-4.1); Glucose 134 mg/dL (80-110); HEMOLYSIS < 15 (0-50); Potassium 4.7 mmol/L (3.4-5.1); Sodium 138 mmol/L (137-145); Total Protein 6.5 g/dL (6.3-8.2)
== END ==
PROVIDERS: Family Provider Internal Medicine; PCP Internal Medicine; Referring Provider Nurse Practitioner; Visit Provider Nurse Practitioner
DX: K75.4 Autoimmune hepatitis (principal); R73.9 Hyperglycemia, unspecified
CPT/HCPCS: 36415; 80048; 80076; 83036; 85025

== ENCOUNTER → 2021-11-05 08:01 | Outpatient (CLI) | payer MEDICARE, SELFPAY ==
[2021-11-05 09:28] LABS: Add Manual Diff / Slide Review NO; Basophils Absolute Auto 0 /uL (0-100); Basophils Percent Auto 0.5 % (0-2); Eosinophils Absolute Auto 100 /uL (0-450); Hematocrit 40.6 % (36-46); Hemoglobin 13.5 g/dL (12.0-16.0); Lymphocytes Absolute Auto 1200 /uL (1100-4500); Mean Corpuscular HGB Conc 33.1 % (30-36); Mean Corpuscular Volume 93.5 fL (80-100); Monocytes Absolute Auto 500 /uL (0-900); Monocytes Percent Auto 9.4 % (3-14); Neutrophils Absolute Auto 3400 /uL (1500-7000); Neutrophils Percent Auto 65.1 % (50-75); Platelet Count 200 X10^3/uL (150-400); Red Blood Cell Count 4.34 X10^6/uL (4.0-5.2); Red Cell Distribution Width 13.3 % (11.6-14.8); White Blood Cell Count 5.2 X10^3/uL (4.5-11.0)
[2021-11-05 09:48] LABS: Alanine Aminotransferase 45 IU/L (<35); Albumin 4.1 g/dL (3.5-5.0); Albumin Globulin Ratio 1.1 (1.0-2.8); Alkaline Phosphatase 101 U/L (38-126); Aspartate Aminotransferase 51 IU/L (14-36); BUN Creatinine Ratio 19.4 (6-22); Bilirubin Total 0.8 mg/dL (0.2-1.3); Bilirubin Unconjugated 0.7 mg/dL (0.0-1.1); Blood Urea Nitrogen 19 mg/dL (7-17); Calcium 9.3 mg/dL (8.4-10.2); Carbon Dioxide 27 mmol/L (22-32); Chloride 104 mmol/L (98-107); Estimated Glomerular Filt Rate 59 mL/min (>60); Globulin 3.6 g/dL (1.7-4.1); Glucose 103 mg/dL (80-110); HEMOLYSIS < 15 (0-50); Potassium 4.5 mmol/L (3.4-5.1); Sodium 140 mmol/L (137-145); Total Protein 7.7 g/dL (6.3-8.2)
== END ==
PROVIDERS: Family Provider Internal Medicine; PCP Internal Medicine; Referring Provider Nurse Practitioner; Visit Provider Nurse Practitioner
DX: R73.9 Hyperglycemia, unspecified (principal); K75.4 Autoimmune hepatitis
CPT/HCPCS: 36415; 80048; 80076; 85025

== ENCOUNTER → 2021-12-24 08:00 | Outpatient (CLI) | payer MEDICARE, SELFPAY ==
[2021-12-24 09:16] LABS: Add Manual Diff / Slide Review NO; Basophils Absolute Auto 0 /uL (0-100); Basophils Percent Auto 0.6 % (0-2); Eosinophils Absolute Auto 100 /uL (0-450); Eosinophils Percent Auto 1.4 % (2-4); Hematocrit 42.5 % (36-46); Hemoglobin 14.1 g/dL (12.0-16.0); Lymphocytes Absolute Auto 1100 /uL (1100-4500); Lymphocytes Percent Auto 23.1 % (25-40); Mean Corpuscular HGB Conc 33.2 % (30-36); Mean Corpuscular Hemoglobin 30.5 PG (26-34); Mean Corpuscular Volume 92.1 fL (80-100); Monocytes Absolute Auto 400 /uL (0-900); Monocytes Percent Auto 9.4 % (3-14); Neutrophils Absolute Auto 3000 /uL (1500-7000); Neutrophils Percent Auto 65.5 % (50-75); Platelet Count 172 X10^3/uL (150-400); Red Blood Cell Count 4.62 X10^6/uL (4.0-5.2); Red Cell Distribution Width 12.4 % (11.6-14.8); White Blood Cell Count 4.6 X10^3/uL (4.5-11.0)
[2021-12-24 09:24] LABS: Hemoglobin A1C% w Est Avg Glu 5.9 % (4.0-6.0)
[2021-12-24 09:30] LABS: Alanine Aminotransferase 37 IU/L (<35); Albumin 4.2 g/dL (3.5-5.0); Alkaline Phosphatase 103 U/L (38-126); Aspartate Aminotransferase 45 IU/L (14-36); Bilirubin Total 0.8 mg/dL (0.2-1.3); Bilirubin Unconjugated 0.7 mg/dL (0.0-1.1); Blood Urea Nitrogen 18 mg/dL (7-17); Calcium 9.5 mg/dL (8.4-10.2); Carbon Dioxide 27 mmol/L (22-32); Chloride 107 mmol/L (98-107); Estimated Glomerular Filt Rate 57 mL/min (>60); Globulin 4.1 g/dL (1.7-4.1); Glucose 124 mg/dL (80-110); HEMOLYSIS < 15 (0-50); Potassium 4.1 mmol/L (3.4-5.1); Sodium 141 mmol/L (137-145); Total Protein 8.3 g/dL (6.3-8.2)
== END ==
PROVIDERS: Family Provider Internal Medicine; PCP Internal Medicine; Referring Provider Nurse Practitioner; Visit Provider Nurse Practitioner
DX: K75.4 Autoimmune hepatitis (principal); R73.9 Hyperglycemia, unspecified
CPT/HCPCS: 36415; 80048; 80076; 83036; 85025

== ENCOUNTER → 2022-02-09 07:55 | Outpatient (CLI) | payer MEDICARE, SELFPAY ==
[2022-02-09 09:11] LABS: Add Manual Diff / Slide Review NO; Basophils Absolute Auto 0 /uL (0-100); Basophils Percent Auto 0.7 % (0-2); Eosinophils Absolute Auto 100 /uL (0-450); Eosinophils Percent Auto 1.2 % (2-4); Hematocrit 41.8 % (36-46); Hemoglobin 13.8 g/dL (12.0-16.0); Lymphocytes Absolute Auto 1400 /uL (1100-4500); Lymphocytes Percent Auto 28.5 % (25-40); Mean Corpuscular HGB Conc 33.1 % (30-36); Mean Corpuscular Hemoglobin 30.6 PG (26-34); Mean Corpuscular Volume 92.7 fL (80-100); Monocytes Absolute Auto 500 /uL (0-900); Monocytes Percent Auto 9.5 % (3-14); Neutrophils Absolute Auto 3000 /uL (1500-7000); Neutrophils Percent Auto 60.1 % (50-75); Platelet Count 176 X10^3/uL (150-400); Red Blood Cell Count 4.51 X10^6/uL (4.0-5.2); Red Cell Distribution Width 12.8 % (11.6-14.8)
[2022-02-09 09:27] LABS: INR 1.2 (0.9-1.3); Prothrombin Time 14.1 SECONDS (10.1-12.7)
[2022-02-09 09:40] LABS: Alanine Aminotransferase 38 IU/L (<35); Albumin 4.1 g/dL (3.5-5.0); Albumin Globulin Ratio 1.1 (1.0-2.8); Alkaline Phosphatase 88 U/L (38-126); Aspartate Aminotransferase 42 IU/L (14-36); Bilirubin Unconjugated 0.8 mg/dL (0.0-1.1); Globulin 3.6 g/dL (1.7-4.1); HEMOLYSIS < 15 (0-50); Total Protein 7.7 g/dL (6.3-8.2)
[2022-02-14 17:15] LABS: Blood Urea Nitrogen 21 mg/dL (7-17); Calcium 9.3 mg/dL (8.4-10.2); Carbon Dioxide 25 mmol/L (22-32); Chloride 106 mmol/L (98-107); Estimated Glomerular Filt Rate 54 mL/min (>60); Glucose 105 mg/dL (80-110); HEMOLYSIS < 15 (0-50); Potassium 4.5 mmol/L (3.4-5.1); Sodium 140 mmol/L (137-145)
== END ==
PROVIDERS: Family Provider Internal Medicine; PCP Internal Medicine; Referring Provider Nurse Practitioner; Visit Provider Nurse Practitioner
DX: K74.69 Other cirrhosis of liver (principal); K75.4 Autoimmune hepatitis
CPT/HCPCS: 36415; 80048; 80076; 82105; 85025; 85610

== ENCOUNTER → 2022-02-23 09:56 | Outpatient (CLI) | payer MEDICARE, SELFPAY ==
--- NOTE | 2022-02-23 10:25 | DI.US.S_ITS ---
PROCEDURE: US ABDOMEN LIMITED INDICATIONS: Autoimmune hepatitis, Other cirrhosis of liver TECHNIQUE: Real-time focused scanning was performed of the abdomen, with image documentation. COMPARISON: [facility], US, US ABDOMEN COMPLETE, 08/11/2021, 8:09. FINDINGS: The liver demonstrates normal size. The liver demonstrates generalized mildly increased echogenicity. This decreases ultrasound sensitivity for detection of hepatic masses. The main portal vein demonstrates normal size and demonstrates normal appearing, hepatopetal flow. There is a 1.7 cm mobile stone seen. There is an additional apparent 7 mm stone within the cystic duct. The gallbladder wall is not thickened, measuring 3 mm or less. No specific pericholecystic fluid is seen. The sonographic St sign is negative. There is no biliary dilatation, the common bile duct measures 3-4 mm. No significant pancreatic abnormality is seen on these images. IMPRESSION: A single mobile gallstone is seen, yet without additional sonographic signs of cholecystitis. An additional apparent 7 mm stone can be seen in the cystic duct. Negative for biliary dilatation. Please correlate with physical examination findings, patient presentation, and laboratory values. Dictated by: Navid Gardner M.D. on 02/23/2022 at 16:26 Approved by: Navid Gardner M.D. on 02/23/2022 at 16:28
== END ==
PROVIDERS: Family Provider Internal Medicine; PCP Internal Medicine; Referring Provider Nurse Practitioner; Visit Provider Nurse Practitioner
DX: K75.4 Autoimmune hepatitis (principal); K74.69 Other cirrhosis of liver; K80.20 Calculus of gallbladder without cholecystitis without obstruction
CPT/HCPCS: 76705

== ENCOUNTER → 2022-04-15 07:57 | Outpatient (CLI) | payer MEDICARE, SELFPAY ==
[2022-04-15 08:59] LABS: Add Manual Diff / Slide Review NO; Basophils Absolute Auto 0 /uL (0-100); Basophils Percent Auto 0.7 % (0-2); Eosinophils Absolute Auto 100 /uL (0-450); Eosinophils Percent Auto 1.8 % (2-4); Hematocrit 40.9 % (36-46); Hemoglobin 13.6 g/dL (12.0-16.0); Lymphocytes Absolute Auto 1300 /uL (1100-4500); Lymphocytes Percent Auto 27.3 % (25-40); Mean Corpuscular HGB Conc 33.2 % (30-36); Mean Corpuscular Hemoglobin 30.8 PG (26-34); Mean Corpuscular Volume 92.8 fL (80-100); Monocytes Absolute Auto 500 /uL (0-900); Monocytes Percent Auto 9.3 % (3-14); Neutrophils Absolute Auto 3000 /uL (1500-7000); Neutrophils Percent Auto 60.9 % (50-75); Platelet Count 167 X10^3/uL (150-400); Red Blood Cell Count 4.41 X10^6/uL (4.0-5.2); Red Cell Distribution Width 13.1 % (11.6-14.8); White Blood Cell Count 4.9 X10^3/uL (4.5-11.0)
[2022-04-15 09:26] LABS: INR 1.3 (0.9-1.3); Prothrombin Time 14.6 SECONDS (10.1-12.7)
[2022-04-15 09:36] LABS: Alanine Aminotransferase 33 IU/L (<35); Albumin 3.9 g/dL (3.5-5.0); Albumin Globulin Ratio 1.1 (1.0-2.8); Alkaline Phosphatase 86 U/L (38-126); Aspartate Aminotransferase 39 IU/L (14-36); BUN Creatinine Ratio 20.4 (6-22); Bilirubin Total 0.9 mg/dL (0.2-1.3); Bilirubin Unconjugated 0.6 mg/dL (0.0-1.1); Blood Urea Nitrogen 20 mg/dL (7-17); Calcium 9.1 mg/dL (8.4-10.2); Carbon Dioxide 27 mmol/L (22-32); Chloride 104 mmol/L (98-107); Estimated Glomerular Filt Rate 59 mL/min (>60); Globulin 3.5 g/dL (1.7-4.1); Glucose 102 mg/dL (80-110); HEMOLYSIS < 15 (0-50); Potassium 4.3 mmol/L (3.4-5.1); Sodium 139 mmol/L (137-145); Total Protein 7.4 g/dL (6.3-8.2)
[2022-04-16 11:25] LABS: Tacrolimus 6.3 ng/mL (2.0-20.0)
== END ==
PROVIDERS: Family Provider Internal Medicine; PCP Internal Medicine; Referring Provider Nurse Practitioner; Visit Provider Nurse Practitioner
DX: K75.4 Autoimmune hepatitis (principal)
CPT/HCPCS: 36415; 80048; 80076; 80197; 85025; 85610

== ENCOUNTER → 2022-07-08 07:54 | Outpatient (CLI) | payer MEDICARE, SELFPAY ==
[2022-07-08 08:33] LABS: INR 1.2 (0.9-1.3); Prothrombin Time 14.3 SECONDS (10.1-12.7)
[2022-07-08 08:39] LABS: Alanine Aminotransferase 36 IU/L (<35); Albumin 4.2 g/dL (3.5-5.0); Albumin Globulin Ratio 1.2 (1.0-2.8); Alkaline Phosphatase 96 U/L (38-126); Aspartate Aminotransferase 42 IU/L (14-36); BUN Creatinine Ratio 20.4 (6-22); Bilirubin Total 0.9 mg/dL (0.2-1.3); Bilirubin Unconjugated 0.7 mg/dL (0.0-1.1); Blood Urea Nitrogen 21 mg/dL (7-17); Calcium 9.4 mg/dL (8.4-10.2); Carbon Dioxide 27 mmol/L (22-32); Chloride 104 mmol/L (98-107); Estimated Glomerular Filt Rate 55 mL/min (>60); Globulin 3.6 g/dL (1.7-4.1); Glucose 110 mg/dL (80-110); HEMOLYSIS < 15 (0-50); Potassium 4.3 mmol/L (3.4-5.1); Sodium 138 mmol/L (137-145); Total Protein 7.8 g/dL (6.3-8.2)
[2022-07-08 09:07] LABS: Add Manual Diff / Slide Review NO; Basophils Absolute Auto 0 /uL (0-100); Basophils Percent Auto 0.6 % (0-2); Eosinophils Absolute Auto 100 /uL (0-450); Eosinophils Percent Auto 1.8 % (2-4); Hemoglobin 13.9 g/dL (12.0-16.0); Lymphocytes Absolute Auto 1400 /uL (1100-4500); Lymphocytes Percent Auto 27.1 % (25-40); Mean Corpuscular HGB Conc 33.8 % (30-36); Mean Corpuscular Volume 91.7 fL (80-100); Monocytes Absolute Auto 500 /uL (0-900); Monocytes Percent Auto 9.5 % (3-14); Neutrophils Absolute Auto 3300 /uL (1500-7000); Platelet Count 179 X10^3/uL (150-400); Red Blood Cell Count 4.47 X10^6/uL (4.0-5.2); Red Cell Distribution Width 12.9 % (11.6-14.8); White Blood Cell Count 5.3 X10^3/uL (4.5-11.0)
== END ==
PROVIDERS: Family Provider Internal Medicine; PCP Internal Medicine; Referring Provider Nurse Practitioner; Visit Provider Nurse Practitioner
DX: K75.4 Autoimmune hepatitis (principal)
CPT/HCPCS: 36415; 80048; 80076; 80197; 85025; 85610

== ENCOUNTER → 2022-08-10 09:52 | Outpatient (CLI) | payer MEDICARE, SELFPAY ==
--- NOTE | 2022-08-10 | DI.US.S_ITS ---
PROCEDURE: US ABDOMEN LIMITED INDICATIONS: CIRRHOSIS OF LIVER TECHNIQUE: Real-time focused scanning was performed of the abdomen, with image documentation. COMPARISON: [facility], , US ABDOMEN LIMITED, 02/23/2022, 10:08. FINDINGS: Liver measures 13.5 cm with diffuse steatosis. There is a fundal focus of increased echogenicity within the gallbladder lumen measuring approximately 1.8 cm. Wall thickness is normal measuring 1.4 cm. Common bile duct measures 4 mm. IMPRESSION: Hepatic steatosis. Cholelithiasis without imaging evidence of cholecystitis. Dictated by: Samia Bower M.D. on 08/10/2022 at 14:43 Approved by: Samia Bower M.D. on 08/10/2022 at 14:44
--- NOTE | 2022-08-10 | DI.MG.S_ITS ---
BILATERAL DIGITAL SCREENING MAMMOGRAM 3D/2D WITH CAD: 08/10/2022 CLINICAL: Routine screening. Family history of breast cancer. Comparison is made to exams dated: 11/25/2020 mammogram, 11/12/2018 mammogram, and 11/05/2017 mammogram - [facility]. There are scattered areas of fibroglandular density in both breasts (category b / 25%-50% glandular tissue). Current study was also evaluated with a Computer Aided Detection (CAD) system. There are benign calcifications in both breasts. There also are benign vascular calcifications in both breasts. No significant masses, calcifications, or other findings are seen in either breast. There has been no significant interval change. IMPRESSION: BENIGN There is no mammographic evidence of malignancy. A 1 year screening mammogram is recommended. Based on the Tyrer Cuzick model (a risk assessment model) the patient's lifetime risk is 1.9% and her 10 year risk is 0.0%. According to the ACR, ACS, and NCCN guidelines, an annual breast MRI exam along with mammogram is recommended if the patient's lifetime risk is 20% or greater. This exam was interpreted at Station ID: [id number]. NOTE: For mammograms, a report in lay terms will be sent to the patient. Approximately 15% of breast malignancies will not be visualized mammographically. In the management of a palpable breast mass, a negative mammogram must not discourage biopsy of a clinically suspicious lesion. Electronically Signed By: Evert carmichael/jennifer:08/10/2022 13:10:27 copy to: Matt Soto letter sent: Normal Exam ACR BI-RADS Category 2: Benign Finding(s) 3342F
== END ==
PROVIDERS: Family Provider Internal Medicine; PCP Internal Medicine; Referring Provider Nurse Practitioner; Visit Provider Nurse Practitioner
DX: Z12.31 Encounter for screening mammogram for malignant neoplasm of breast (principal); K74.69 Other cirrhosis of liver; Z80.3 Family history of malignant neoplasm of breast; K76.0 Fatty (change of) liver, not elsewhere classified
CPT/HCPCS: 76705; 77063; 77067

== ENCOUNTER → 2022-09-15 16:11 | Outpatient (CLI) | payer MEDICARE, SELFPAY ==
[2022-09-15 17:54] LABS: Free T4, Direct Thyroxine 1.34 ng/dL (0.78-2.19)
[2022-09-15 18:08] LABS: Thyroid Stimulating Hormone 1.38 uIU/mL (0.47-4.68)
== END ==
PROVIDERS: Family Provider Internal Medicine; PCP Internal Medicine; Referring Provider Internal Medicine; Visit Provider Internal Medicine
DX: E03.9 Hypothyroidism, unspecified (principal)
CPT/HCPCS: 36415; 84439; 84443

== ENCOUNTER → 2022-10-21 07:48 | Outpatient (CLI) | payer MEDICARE, SELFPAY ==
[2022-10-21 08:17] LABS: Add Manual Diff / Slide Review NO; Basophils Absolute Auto 0 /uL (0-100); Basophils Percent Auto 0.6 % (0-2); Eosinophils Absolute Auto 100 /uL (0-450); Eosinophils Percent Auto 1.2 % (2-4); Hematocrit 41.4 % (36-46); Hemoglobin 13.9 g/dL (12.0-16.0); Lymphocytes Absolute Auto 1300 /uL (1100-4500); Lymphocytes Percent Auto 21.5 % (25-40); Mean Corpuscular HGB Conc 33.7 % (30-36); Mean Corpuscular Hemoglobin 30.6 PG (26-34); Mean Corpuscular Volume 90.8 fL (80-100); Monocytes Absolute Auto 700 /uL (0-900); Neutrophils Absolute Auto 4000 /uL (1500-7000); Neutrophils Percent Auto 64.7 % (50-75); Platelet Count 168 X10^3/uL (150-400); Red Blood Cell Count 4.56 X10^6/uL (4.0-5.2); Red Cell Distribution Width 12.8 % (11.6-14.8); White Blood Cell Count 6.2 X10^3/uL (4.5-11.0)
[2022-10-21 08:22] LABS: INR 1.2 (0.9-1.3); Prothrombin Time 14.1 SECONDS (10.1-12.7)
[2022-10-21 08:40] LABS: Alanine Aminotransferase 39 IU/L (<35); Albumin 3.9 g/dL (3.5-5.0); Alkaline Phosphatase 85 U/L (38-126); Aspartate Aminotransferase 48 IU/L (14-36); BUN Creatinine Ratio 21.9 (6-22); Bilirubin Total 1.1 mg/dL (0.2-1.3); Bilirubin Unconjugated 0.9 mg/dL (0.0-1.1); Blood Urea Nitrogen 21 mg/dL (7-17); Calcium 9.6 mg/dL (8.4-10.2); Carbon Dioxide 22 mmol/L (22-32); Chloride 106 mmol/L (98-107); Estimated Glomerular Filt Rate > 60 mL/min (>60); Globulin 3.8 g/dL (1.7-4.1); Glucose 111 mg/dL (80-110); HEMOLYSIS 32 (0-50); Potassium 4.6 mmol/L (3.4-5.1); Sodium 138 mmol/L (137-145); Total Protein 7.7 g/dL (6.3-8.2)
[2022-10-25 11:45] LABS: Tacrolimus 6.7
== END ==
PROVIDERS: Family Provider Internal Medicine; PCP Internal Medicine; Referring Provider Nurse Practitioner; Visit Provider Nurse Practitioner
DX: K75.4 Autoimmune hepatitis (principal); K76.4 Peliosis hepatis
CPT/HCPCS: 36415; 80048; 80076; 80197; 85025; 85610

== ENCOUNTER 2023-01-15 12:20 | Day surgery (SDC) | payer MEDICARE, SELFPAY ==
--- NOTE | 2023-01-15 11:52 | P.HP_ITS ---
History of Present Illness History of Present Illness Date Patient Seen: 01/15/23 Chief complaint: SDC Narrative: History of tubulovillous adenoma in 2019 need for follow-up colonoscopy. History of autoimmune hepatitis with ultrasound suggesting possible cirrhosis rule out underlying varices [facility] Medical History (Updated 08/09/21 @ 09:35 by Matt Soto MD) Essential hypertension Mixed hyperlipidemia Acquired hypothyroidism Osteoarthritis Carpal tunnel syndrome Strabismus (~1944) Cataracts, bilateral Fibroids (~1984) Autoimmune hepatitis (~1998) Colon polyps (~2019) Cirrhosis (~1998) Hypercholesteremia Osteoporosis (~2018) Hypothyroid (~1992) Hypertension (~1998) Surgical History (Updated 02/17/21 @ 15:07 by Matt Soto MD) Anesthesia History of dilatation and curettage (~1972) History of carpal tunnel repair (~1993) History of tonsillectomy and adenoidectomy (~1948) History of surgical procedure (~1947) H/O: hysterectomy (~1991) Family History (Updated 02/16/21 @ 19:17 by Naomi Rivas) Father Renal failure Mother Hypertension Stroke Sister Hypertension Social History household members: spouse Smoking Status: Former smoker alcohol intake: never Meds Home Medications and Allergies Home Medications Medication Instructions Recorded Confirmed Type tacrolimus 1 mg capsule, 1 mg PO Q12H 10/08/19 09/15/22 History immediate-release mycophenolate mofetil 500 mg tablet 500 mg PO BID 02/17/21 09/15/22 History spironolactone 25 mg tablet 25 mg PO DAILY #90 tabs 09/11/22 09/15/22 Rx atorvastatin 20 mg tablet 20 mg PO DAILY #90 tabs 11/10/22 Rx levothyroxine 75 mcg tablet 75 mcg PO DAILY #90 tabs 11/10/22 Rx alendronate 70 mg tablet 70 mg PO QWEEK #12 tabs 11/20/22 Rx losartan 25 mg tablet 12.5 mg (1/2 x 25 mg) PO DAILY #45 12/06/22 Rx tabs Allergies Allergy/AdvReac Type Severity Reaction Status Date / Time Sulfa (Sulfonamide Allergy Intermediate Cough Verified 09/15/22 15:48 Antibiotics) Exam Narrative Exam Narrative: Oropharynx free of lesions Chest clear to auscultation percussion Cardiac exam reveals no S3 or murmur Assessment & Plan Assessment & Plan narrative: History of adenomatous colon polyps need follow-up colonoscopy. History of autoimmune hepatitis with possible cirrhosis rule out esophageal varices Risks benefits alternatives to colonoscopy and upper endoscopy explained.
--- NOTE | 2023-01-15 11:53 | PM.OP.EC ---
Operative Date/Time/Diagnoses Date of procedure: 01/15/23 Pre-op diagnosis: See indication and findings Procedure & Clinicians Study performed: EGD and colonoscopy Indications: History of adenomatous colon polyps and history of possible cirrhosis from autoimmune hepatitis on ultrasound. Rule out esophageal varices Surgeon: Melinda Bennett Procedure Notes Procedure in detail: After informed consent was obtained the patient was placed in left lateral decubitus position. Video upper scope was placed into the oropharynx and with the patient's help swelled into the esophagus. The esophagus stomach and duodenum were carefully examined. On withdrawal, retroflexed view the GE junction was performed. The scope was removed. The patient tolerated procedure well. The patient was then turned and the colonoscope substituted. This is placed into the rectum slowly advanced cecum. Preparation was good. On slow withdrawal mucosa was carefully examined. The scope was removed. The patient tolerated procedure well. Blood loss none Complications none Sedation mac Findings EGD 1. Normal esophagus 2. Normal stomach 3. Normal duodenal bulb and sweep Colonoscopy 1. Normal colonoscopy to cecum These procedures may be her last that are necessary. If in excellent health consider repeat EGD in 1 year and repeat colonoscopy in 5 years
[2023-01-15 12:29] VITALS: BMI 27.1
[2023-01-15 12:43] VITALS: BP 130/89; PULSE 110; RESP 17; TEMP 37.1; O2SAT 95
[2023-01-15] MEDS: LACTATED RINGERS 1,000 ML 42 ML IV (12:55)
[2023-01-15 13:25] VITALS: BP 95/55; PULSE 75; RESP 14; TEMP 36.5; O2SAT 95
[2023-01-15 13:30] VITALS: BP 95/57; PULSE 73; RESP 20; O2SAT 94
[2023-01-15 13:36] VITALS: BP 82/58; PULSE 65; RESP 19; TEMP 37; O2SAT 97
[2023-01-15 13:43] VITALS: BP 90/61; PULSE 72; RESP 24; O2SAT 95
[2023-01-15 13:44] VITALS: BP 95/65; PULSE 73; RESP 14; TEMP 36.4; O2SAT 96
== END 2023-01-15 13:58 | disposition home or self-care (01) ==
PROVIDERS: Family Provider Internal Medicine; PCP Internal Medicine; Referring Provider Internal Medicine Gastroenterology; Visit Provider Internal Medicine Gastroenterology
PROC: 0DJ08ZZ Inspection of Upper Intestinal Tract, Via Natural or Artificial Opening Endoscopic (ICD-10-PCS; CPT 43235; principal; 2023-01-15 14:00)
PROC: 0DJD8ZZ Inspection of Lower Intestinal Tract, Via Natural or Artificial Opening Endoscopic (ICD-10-PCS; CPT 45378; 2023-01-15 14:00)
DX: Z12.11 Encounter for screening for malignant neoplasm of colon (principal); Z86.010 Personal history of colon polyps; K75.4 Autoimmune hepatitis
CPT/HCPCS: 43235; G0105

== ENCOUNTER → 2023-02-03 08:01 | Outpatient (CLI) | payer MEDICARE, SELFPAY ==
[2023-02-03 08:24] LABS: Add Manual Diff / Slide Review NO; Basophils Absolute Auto 0 /uL (0-100); Basophils Percent Auto 0.5 % (0-2); Eosinophils Absolute Auto 100 /uL (0-450); Eosinophils Percent Auto 1.6 % (2-4); Hematocrit 41.1 % (36-46); Hemoglobin 13.7 g/dL (12.0-16.0); Lymphocytes Absolute Auto 1400 /uL (1100-4500); Lymphocytes Percent Auto 26.7 % (25-40); Mean Corpuscular HGB Conc 33.4 % (30-36); Mean Corpuscular Hemoglobin 31.2 PG (26-34); Mean Corpuscular Volume 93.3 fL (80-100); Monocytes Absolute Auto 500 /uL (0-900); Monocytes Percent Auto 9.6 % (3-14); Neutrophils Absolute Auto 3300 /uL (1500-7000); Neutrophils Percent Auto 61.6 % (50-75); Platelet Count 180 X10^3/uL (150-400); Red Blood Cell Count 4.41 X10^6/uL (4.0-5.2); White Blood Cell Count 5.4 X10^3/uL (4.5-11.0)
[2023-02-03 08:30] LABS: INR 1.3 (0.9-1.3); Prothrombin Time 14.4 SECONDS (9.4-12.5)
[2023-02-03 08:37] LABS: Alanine Aminotransferase 32 IU/L (<35); Albumin 4.1 g/dL (3.5-5.0); Albumin Globulin Ratio 1.1 (1.0-2.8); Alkaline Phosphatase 70 U/L (38-126); Aspartate Aminotransferase 43 IU/L (14-36); BUN Creatinine Ratio 19.2 (6-22); Bilirubin Total 0.9 mg/dL (0.2-1.3); Bilirubin Unconjugated 0.6 mg/dL (0.0-1.1); Blood Urea Nitrogen 19 mg/dL (7-17); Calcium 9.8 mg/dL (8.4-10.2); Carbon Dioxide 26 mmol/L (22-32); Chloride 106 mmol/L (98-107); Estimated Glomerular Filt Rate 58 mL/min (>60); Globulin 3.7 g/dL (1.7-4.1); Glucose 109 mg/dL (80-110); HEMOLYSIS < 15 (0-50); Potassium 4.4 mmol/L (3.4-5.1); Sodium 138 mmol/L (137-145); Total Protein 7.8 g/dL (6.3-8.2)
== END ==
PROVIDERS: Family Provider Internal Medicine; PCP Internal Medicine; Referring Provider Nurse Practitioner; Visit Provider Nurse Practitioner
DX: K75.4 Autoimmune hepatitis (principal)
CPT/HCPCS: 36415; 80048; 80076; 80197; 85025; 85610

== ENCOUNTER → 2023-02-08 08:47 | Outpatient (CLI) | payer MEDICARE, SELFPAY ==
--- NOTE | 2023-02-08 08:48 | DI.US.S_ITS ---
PROCEDURE: US ABDOMEN LIMITED INDICATIONS: AUTOIMMUNE HEPATITIS/CIRRHOSIS OF LIVER TECHNIQUE: Real-time scanning was performed of the abdominal and retroperitoneal organs, with image documentation. COMPARISON: [facility], , US ABDOMEN LIMITED, 08/10/2022, 10:43. FINDINGS: Liver: Liver is normal in size and has a coarse echotexture. Gallbladder: A 2.3 mm stone is present within the gallbladder fundus. The gallbladder is sludge filled. The wall measures 2.5 mm in diameter. No pericholecystic fluid or sonographic St sign. Biliary ducts: Intrahepatic bile ducts are non-dilated. Extrahepatic bile duct caliber measures 3.3 mm. Normal is 6-7 mm or less in diameter, or 10 mm or less post-cholecystectomy. Pancreas: Not visualized due to overlying bowel gas. IMPRESSION: 1. Cholelithiasis. No findings to suggest choledocholithiasis or acute cholecystitis. 2. Coarse hepatic echotexture noted. This is a nonspecific finding but may be associated with hepatocellular dysfunction or mild fatty infiltration. Dictated by: Violet Kemp M.D. on 02/08/2023 at 11:10 Approved by: Violet Kemp M.D. on 02/08/2023 at 11:12
== END ==
LOC: US 08:48
PROVIDERS: Family Provider Internal Medicine; PCP Internal Medicine; Referring Provider Nurse Practitioner; Visit Provider Nurse Practitioner
DX: K75.4 Autoimmune hepatitis (principal); K74.69 Other cirrhosis of liver; K80.20 Calculus of gallbladder without cholecystitis without obstruction
CPT/HCPCS: 76705

== ENCOUNTER → 2023-05-12 07:52 | Outpatient (CLI) | payer MEDICARE, SELFPAY ==
[2023-05-12 09:02] LABS: Add Manual Diff / Slide Review NO; Basophils Absolute Auto 0 /uL (0-100); Basophils Percent Auto 0.5 % (0-2); Eosinophils Absolute Auto 100 /uL (0-450); Eosinophils Percent Auto 1.9 % (2-4); Hemoglobin 13.3 g/dL (12.0-16.0); Lymphocytes Absolute Auto 1300 /uL (1100-4500); Lymphocytes Percent Auto 23.9 % (25-40); Mean Corpuscular HGB Conc 33.2 % (30-36); Mean Corpuscular Volume 93.5 fL (80-100); Monocytes Absolute Auto 500 /uL (0-900); Monocytes Percent Auto 9.8 % (3-14); Neutrophils Absolute Auto 3400 /uL (1500-7000); Neutrophils Percent Auto 63.9 % (50-75); Platelet Count 198 X10^3/uL (150-400); Red Blood Cell Count 4.28 X10^6/uL (4.0-5.2); Red Cell Distribution Width 12.7 % (11.6-14.8); White Blood Cell Count 5.3 X10^3/uL (4.5-11.0)
[2023-05-12 09:31] LABS: Alanine Aminotransferase 32 IU/L (<35); Albumin 3.7 g/dL (3.5-5.0); Alkaline Phosphatase 86 U/L (38-126); Aspartate Aminotransferase 40 IU/L (14-36); BUN Creatinine Ratio 23.1 (6-22); Bilirubin Total 0.9 mg/dL (0.2-1.3); Bilirubin Unconjugated 0.7 mg/dL (0.0-1.1); Blood Urea Nitrogen 24 mg/dL (7-17); Calcium 9.6 mg/dL (8.4-10.2); Carbon Dioxide 28 mmol/L (22-32); Chloride 107 mmol/L (98-107); Estimated Glomerular Filt Rate 54 mL/min (>60); Globulin 3.6 g/dL (1.7-4.1); Glucose 106 mg/dL (80-110); HEMOLYSIS < 15 (0-50); Potassium 4.5 mmol/L (3.4-5.1); Sodium 138 mmol/L (137-145); Total Protein 7.3 g/dL (6.3-8.2)
[2023-05-14 15:18] LABS: Tacrolimus 7.9
== END ==
PROVIDERS: Family Provider Internal Medicine; PCP Internal Medicine; Referring Provider Nurse Practitioner; Visit Provider Nurse Practitioner
DX: K75.4 Autoimmune hepatitis (principal); K74.69 Other cirrhosis of liver
CPT/HCPCS: 36415; 80048; 80076; 80197; 82105; 85025

== ENCOUNTER → 2023-07-31 07:53 | Outpatient (CLI) | payer MEDICARE, SELFPAY ==
--- NOTE | 2023-07-31 07:57 | DI.US.S_ITS ---
PROCEDURE: US ABDOMEN LIMITED INDICATIONS: Autoimmune hepatitis TECHNIQUE: Real-time scanning was performed of the abdominal and retroperitoneal organs, with image documentation. COMPARISON: [facility], , US ABDOMEN LIMITED, 02/08/2023, 9:00. FINDINGS: Liver: Coarsened liver echogenicity with a nodular contour. No solid mass. Gallbladder: Cholelithiasis. Diffuse wall thickening. No pericholecystic edema. Negative sonographic St's sign. Biliary ducts: Intrahepatic bile ducts are non-dilated. Extrahepatic bile duct caliber measures 4 mm. Normal is 6-7 mm or less in diameter, or 10 mm or less post-cholecystectomy. Pancreas: Visualized portions of the pancreas are sonographically normal. Miscellaneous: No free abdominal fluid. Benign cyst on the superior pole of the right kidney. IMPRESSION: Cirrhotic liver morphology. No solid mass. Cholelithiasis. Diffuse wall thickening, likely due to underlying liver disease. Negative sonographic St sign does not suggest acute cholecystitis at this time. Dictated by: Elton Sky M.D. on 07/31/2023 at 10:25 Approved by: Elton Sky M.D. on 07/31/2023 at 10:29
[2023-07-31 08:46] LABS: Add Manual Diff / Slide Review NO; Basophils Absolute Auto 0 /uL (0-100); Basophils Percent Auto 0.5 % (0-2); Eosinophils Absolute Auto 100 /uL (0-450); Eosinophils Percent Auto 2.4 % (2-4); Hematocrit 40.3 % (36-46); Hemoglobin 13.5 g/dL (12.0-16.0); Lymphocytes Absolute Auto 1500 /uL (1100-4500); Lymphocytes Percent Auto 27.4 % (25-40); Mean Corpuscular HGB Conc 33.4 % (30-36); Mean Corpuscular Hemoglobin 30.8 PG (26-34); Mean Corpuscular Volume 92.1 fL (80-100); Monocytes Absolute Auto 600 /uL (0-900); Monocytes Percent Auto 11.2 % (3-14); Neutrophils Absolute Auto 3100 /uL (1500-7000); Neutrophils Percent Auto 58.5 % (50-75); Platelet Count 181 X10^3/uL (150-400); Red Blood Cell Count 4.38 X10^6/uL (4.0-5.2); Red Cell Distribution Width 13.1 % (11.6-14.8); White Blood Cell Count 5.4 X10^3/uL (4.5-11.0)
[2023-07-31 08:56] LABS: INR 1.2 (0.9-1.3); Prothrombin Time 13.5 SECONDS (9.4-12.5)
[2023-07-31 09:24] LABS: Alanine Aminotransferase 29 IU/L (<35); Albumin Globulin Ratio 1.2 (1.0-2.8); Alkaline Phosphatase 79 U/L (38-126); Aspartate Aminotransferase 41 IU/L (14-36); BUN Creatinine Ratio 16.5 (6-22); Bilirubin Total 0.9 mg/dL (0.2-1.3); Bilirubin Unconjugated 0.5 mg/dL (0.0-1.1); Blood Urea Nitrogen 16 mg/dL (7-17); Calcium 9.1 mg/dL (8.4-10.2); Carbon Dioxide 28 mmol/L (22-32); Chloride 108 mmol/L (98-107); Estimated Glomerular Filt Rate 59 mL/min (>60); Globulin 3.4 g/dL (1.7-4.1); Glucose 106 mg/dL (80-110); HEMOLYSIS < 15 (0-50); Potassium 4.5 mmol/L (3.4-5.1); Sodium 139 mmol/L (137-145); Total Protein 7.4 g/dL (6.3-8.2)
[2023-08-02 07:36] LABS: Alpha Fetoprotein 3.3 ng/mL (0.0-9.2)
[2023-08-02 08:10] LABS: Tacrolimus 5.2 ng/mL (2.0-20.0)
== END ==
PROVIDERS: Family Provider Internal Medicine; PCP Internal Medicine; Referring Provider Nurse Practitioner; Visit Provider Nurse Practitioner
DX: K75.4 Autoimmune hepatitis (principal); K74.69 Other cirrhosis of liver; K80.20 Calculus of gallbladder without cholecystitis without obstruction; N28.1 Cyst of kidney, acquired
CPT/HCPCS: 36415; 76705; 80048; 80076; 80197; 82105; 85025; 85610

== ENCOUNTER → 2023-12-01 12:38 | Outpatient (CLI) | payer MEDICARE, SELFPAY ==
--- NOTE | 2023-12-01 12:39 | DI.MG.S_ITS ---
BILATERAL DIGITAL SCREENING MAMMOGRAM 3D/2D WITH CAD: 12/01/2023 CLINICAL: Routine screening. Family history of breast cancer. Comparison is made to exams dated: 08/10/2022 mammogram, 11/25/2020 mammogram, and 11/12/2018 mammogram - [facility]. There are scattered areas of fibroglandular density (category b / 25%-50% glandular tissue). Current study was also evaluated with a Computer Aided Detection (CAD) system. There are benign calcifications in both breasts. There also are benign vascular calcifications in both breasts. No significant masses, calcifications, or other findings are seen in either breast. There has been no significant interval change. IMPRESSION: BENIGN There is no mammographic evidence of malignancy. A 1 year screening mammogram is recommended. Based on the Tyrer Cuzick model (a risk assessment model) the patient's lifetime risk is 0.7% and her 10 year risk is 0.0%. According to the ACR, ACS, and NCCN guidelines, an annual breast MRI exam along with mammogram is recommended if the patient's lifetime risk is 20% or greater. This exam was interpreted at Station ID: [id number]. NOTE: For mammograms, a report in lay terms will be sent to the patient. Approximately 15% of breast malignancies will not be visualized mammographically. In the management of a palpable breast mass, a negative mammogram must not discourage biopsy of a clinically suspicious lesion. Electronically Signed By: Evert carmichael/jennifer:12/03/2023 13:25:00 letter sent: Normal Exam ACR BI-RADS Category 2: Benign
== END ==
LOC: MAMMO 12:38
PROVIDERS: Family Provider Internal Medicine; PCP Internal Medicine; Referring Provider Internal Medicine; Visit Provider Internal Medicine
DX: Z12.31 Encounter for screening mammogram for malignant neoplasm of breast (principal); Z80.3 Family history of malignant neoplasm of breast
CPT/HCPCS: 77063; 77067

== ENCOUNTER → 2024-01-05 07:53 | Outpatient (CLI) | payer MEDICARE, SELFPAY ==
[2024-01-05 08:42] LABS: Add Manual Diff / Slide Review NO; Basophils Absolute Auto 0 /uL (0-100); Basophils Percent Auto 0.7 % (0-2); Eosinophils Absolute Auto 100 /uL (0-450); Eosinophils Percent Auto 1.5 % (2-4); Hematocrit 41.5 % (36-46); Hemoglobin 13.9 g/dL (12.0-16.0); Lymphocytes Absolute Auto 1200 /uL (1100-4500); Lymphocytes Percent Auto 20.9 % (25-40); Mean Corpuscular HGB Conc 33.4 % (30-36); Mean Corpuscular Hemoglobin 31.1 PG (26-34); Mean Corpuscular Volume 93.4 fL (80-100); Monocytes Absolute Auto 500 /uL (0-900); Neutrophils Absolute Auto 4000 /uL (1500-7000); Neutrophils Percent Auto 68.9 % (50-75); Platelet Count 183 X10^3/uL (150-400); Red Blood Cell Count 4.45 X10^6/uL (4.0-5.2); White Blood Cell Count 5.9 X10^3/uL (4.5-11.0)
[2024-01-05 08:51] LABS: INR 1.2 (0.9-1.3)
[2024-01-05 08:57] LABS: Alanine Aminotransferase 26 IU/L (<35); Albumin Globulin Ratio 1.1 (1.0-2.8); Alkaline Phosphatase 71 U/L (38-126); Aspartate Aminotransferase 37 IU/L (14-36); Bilirubin Total 0.9 mg/dL (0.2-1.3); Bilirubin Unconjugated 0.7 mg/dL (0.0-1.1); Globulin 3.5 g/dL (1.7-4.1); HEMOLYSIS < 15 (0-50); Total Protein 7.5 g/dL (6.3-8.2)
[2024-01-05 08:58] LABS: Alanine Aminotransferase 25 IU/L (<35); Albumin Globulin Ratio 1.1 (1.0-2.8); Alkaline Phosphatase 73 U/L (38-126); Aspartate Aminotransferase 37 IU/L (14-36); BUN Creatinine Ratio 22.6 (6-22); Bilirubin Total 0.9 mg/dL (0.2-1.3); Blood Urea Nitrogen 26 mg/dL (7-17); Calcium 9.8 mg/dL (8.4-10.2); Carbon Dioxide 25 mmol/L (22-32); Chloride 106 mmol/L (98-107); Cholesterol 164 mg/dL (140-199); Estimated Glomerular Filt Rate 48 mL/min (>60); Globulin 3.6 g/dL (1.7-4.1); Glucose 156 mg/dL (80-110); HDL Cholesterol 81 mg/dL (40-60); HEMOLYSIS < 15 (0-50); LDL Cholesterol Calculated 68 mg/dL (<100); Potassium 4.2 mmol/L (3.4-5.1); Sodium 136 mmol/L (137-145); Total Protein 7.6 g/dL (6.3-8.2); Triglycerides 74 mg/dL (35-150)
[2024-01-05 09:11] LABS: Free T4, Direct Thyroxine 1.31 ng/dL (0.78-2.19)
[2024-01-05 09:25] LABS: Thyroid Stimulating Hormone 2.05 uIU/mL (0.47-4.68)
[2024-01-06 04:06] LABS: Alpha Fetoprotein 4.6 ng/mL (0.0-8.7)
[2024-01-06 09:11] LABS: Tacrolimus 6.8 ng/mL (2.0-20.0)
== END ==
PROVIDERS: Family Provider Internal Medicine; PCP Internal Medicine; Referring Provider Nurse Practitioner; Visit Provider Internal Medicine
DX: I10 Essential (primary) hypertension (principal); K75.4 Autoimmune hepatitis; K74.69 Other cirrhosis of liver; E78.2 Mixed hyperlipidemia; E03.9 Hypothyroidism, unspecified
CPT/HCPCS: 36415; 80053; 80061; 80076; 80197; 82105; 84439; 84443; 85025; 85610

== ENCOUNTER → 2024-01-10 10:58 | Outpatient (CLI) | payer MEDICARE, SELFPAY ==
--- NOTE | 2024-01-10 11:13 | EKG_ITS ---
[address] [address] Test Date: 2024-01-10 Pat Name: Felecia Chapin Department: [facility] Room: Gender: Female Drapery Hand: CHIKIS : 1940 Requested By: Order Number: [id number] Reading MD: Matt Soto MD Measurements Intervals [place] Rate: 101 P: 63 NV: 162 QRS: 99 QRSD: 106 T: 12 QT: 366 QTc: 474 Interpretive Statements Sinus tachycardia Rightward axis Possible Inferior infarct , age undetermined Electronically Signed On 01-11-2024 6:41:27 PST by Matt Soto MD
[2024-01-10 12:31] LABS: Appearance Urine UA CLEAR; Bilirubin Urine UA NEGATIVE (NEGATIVE); Color Urine UA YELLOW; Glucose Urine UA NEGATIVE (Negative); Ketones Urine UA NEGATIVE (NEGATIVE); Leukocyte Esterase Urine UA 1+ (NEGATIVE); Nitrite Urine UA NEGATIVE (Negative); Occult Blood Urine UA NEGATIVE (Negative); Protein Urine UA NEGATIVE (Negative); Urobilinogen Urine UA 0.2 E.U./dL (0.2)
[2024-01-10 13:19] LABS: Bacteria Urine None Seen; Culture Indicated Urine Cult Not Indicated; RBC Urine 0-1/HPF (0-5/HPF); Squamous Epithelial Cell Urine 1-5 /HPF (0-5/HPF); Urine Volume 10mL (spun); WBC Urine 1-5/HPF (0-5/HPF)
== END ==
PROVIDERS: Family Provider Internal Medicine; PCP Internal Medicine; Referring Provider Orthopaedic Surgery; Visit Provider Orthopaedic Surgery
DX: Z01.818 Encounter for other preprocedural examination (principal); N39.0 Urinary tract infection, site not specified
CPT/HCPCS: 81001; 93005; 93010

== ENCOUNTER → 2024-04-04 13:50 | Outpatient (CLI) | payer MEDICARE, SELFPAY ==
--- NOTE | 2024-04-04 13:52 | DI.US.S_ITS ---
PROCEDURE: US ABDOMEN LIMITED INDICATIONS: OTHER CIRRHOSIS OF LIVER,AUTOIMMUNE HEP TECHNIQUE: Real-time scanning was performed of the abdominal and retroperitoneal organs, with image documentation. COMPARISON: [facility], US, US ABDOMEN LIMITED, 07/31/2023, 8:34. [facility], US, US ABDOMEN LIMITED, 02/08/2023, 9:00. FINDINGS: Liver: Liver is normal in size and mildly in echotexture with coarse echotexture, and normal direction of flow within the main portal vein. The hepatic capsular margin is nodular, consistent with cirrhosis. Gallbladder: A single large stone is identified within the gallbladder lumen measuring up to 3.0 x 2.3 x 2.1 cm. The gallbladder wall, however, is not thickened. No pericholecystic edema. Negative sonographic St's sign. Biliary ducts: Intrahepatic bile ducts are non-dilated. Extrahepatic bile duct caliber measures 3.3 mm. Normal is 6-7 mm or less in diameter, or 10 mm or less post-cholecystectomy. Pancreas: Visualized portions of the pancreas are sonographically normal. Miscellaneous: No free abdominal fluid. Note is made of a simple cyst at the right kidney measuring up to 2.1 cm. IMPRESSION: Cirrhotic change with mild nodular margination of the hepatic capsular border. Heterogeneous mildly elevated echotexture throughout the liver consistent with cirrhotic change but no focal liver mass is identified. Large single visualized stone within the gallbladder lumen measuring up to 3.0 cm in dimension. Dictated by: Krystian Ward M.D. on 04/04/2024 at 15:32 Approved by: Krystian Ward M.D. on 04/04/2024 at 15:35
== END ==
PROVIDERS: Family Provider Internal Medicine; PCP Internal Medicine; Referring Provider Nurse Practitioner; Visit Provider Nurse Practitioner
DX: K74.69 Other cirrhosis of liver (principal); K75.4 Autoimmune hepatitis; K80.20 Calculus of gallbladder without cholecystitis without obstruction
CPT/HCPCS: 76705

== ENCOUNTER → 2024-06-19 09:36 | Outpatient (CLI) | payer MEDICARE, SELFPAY ==
--- NOTE | 2024-06-19 09:38 | DI.RAD.S_ITS ---
PROCEDURE: XR CHEST 2V INDICATIONS: left supraclavicular lymphadenopathy TECHNIQUE: 2 views of the chest were acquired. COMPARISON: [facility], CR, XR CHEST 1V, 12/31/2018, 21:17. [facility], CR, XR CHEST 2V, 09/04/2018, 10:07. FINDINGS: Surgical changes and devices: None. Lungs and pleura: Lungs are clear. No pleural effusions or pneumothorax. Mediastinum: Top-normal cardiac silhouette. Prominence of pulmonary vessels seen on the right, similarly. Bones and chest wall: No suspicious bony abnormalities. Soft tissues appear unremarkable. IMPRESSION: Possible mild pulmonary vascular congestion, no consolidation or pleural effusion seen. Dictated by: Samy Grace M.D. on 06/19/2024 at 19:33 Approved by: Samy Grace M.D. on 06/19/2024 at 19:35
[2024-06-19 10:54] LABS: Alanine Aminotransferase 35 IU/L (<35); Albumin 4.2 g/dL (3.5-5.0); Albumin Globulin Ratio 1.4 (1.0-2.8); Alkaline Phosphatase 84 U/L (38-126); Aspartate Aminotransferase 45 IU/L (14-36); BUN Creatinine Ratio 19.4 (6-22); Bilirubin Total 0.9 mg/dL (0.2-1.3); Blood Urea Nitrogen 21 mg/dL (7-17); C-Reactive Protein Quant < 0.5 mg/dL (<1.0); Calcium 9.5 mg/dL (8.4-10.2); Carbon Dioxide 21 mmol/L (22-32); Chloride 107 mmol/L (98-107); Estimated Glomerular Filt Rate 52 mL/min (>60); Globulin 3.1 g/dL (1.7-4.1); Glucose 185 mg/dL (70-99); HEMOLYSIS < 15 (0-50); Potassium 4.5 mmol/L (3.4-5.1); Sodium 139 mmol/L (137-145); Total Protein 7.3 g/dL (6.3-8.2)
[2024-06-19 11:51] LABS: Erythrocyte Sedimentation Rate 17 MM/HR (0-20)
[2024-06-19 11:54] LABS: Add Manual Diff / Slide Review NO; Basophils Absolute Auto 0 /uL (0-100); Basophils Percent Auto 0.4 % (0-2); Eosinophils Absolute Auto 100 /uL (0-450); Eosinophils Percent Auto 0.8 % (2-4); Hematocrit 41.6 % (36-46); Hemoglobin 13.9 g/dL (12.0-16.0); Lymphocytes Absolute Auto 1000 /uL (1100-4500); Lymphocytes Percent Auto 12.8 % (25-40); Mean Corpuscular HGB Conc 33.5 % (30-36); Mean Corpuscular Hemoglobin 31.1 PG (26-34); Mean Corpuscular Volume 92.7 fL (80-100); Monocytes Absolute Auto 600 /uL (0-900); Monocytes Percent Auto 7.7 % (3-14); Neutrophils Absolute Auto 6000 /uL (1500-7000); Neutrophils Percent Auto 78.3 % (50-75); Platelet Count 179 X10^3/uL (150-400); Red Blood Cell Count 4.48 X10^6/uL (4.0-5.2); Red Cell Distribution Width 13.2 % (11.6-14.8); White Blood Cell Count 7.7 X10^3/uL (4.5-11.0)
== END ==
PROVIDERS: Family Provider Internal Medicine; PCP Internal Medicine; Referring Provider Internal Medicine; Visit Provider Internal Medicine
DX: R59.1 Generalized enlarged lymph nodes (principal); R59.0 Localized enlarged lymph nodes; D64.9 Anemia, unspecified; I10 Essential (primary) hypertension; E78.2 Mixed hyperlipidemia
CPT/HCPCS: 36415; 71046; 80053; 85025; 85651; 86140

== ENCOUNTER → 2024-07-22 09:17 | Outpatient (CLI) | payer MEDICARE, SELFPAY ==
--- NOTE | 2024-07-22 09:19 | DI.CT.S_ITS ---
PROCEDURE: CT CHEST ABD PEL W CON INDICATIONS: LT supraclavicular LNs, concern for malig, former smoker TECHNIQUE: After the administration of intravenous contrast, 5 mm thick sections acquired from the lung apices to the symphysis. 5 mm coronal and sagittal reformats were performed, with additional 7 mm MIP reformats through the lungs. For radiation dose reduction, the following was used: automated exposure control, adjustment of mA and/or kV according to patient size. COMPARISON: None. FINDINGS: Image quality: Excellent. CHEST: Lower Neck: Centrally necrotic, peripherally enhancing irregular mass in the left lower neck measuring at least 4.4 by 4.2 x 3.2 cm. Shotty, rounded left supraclavicular lymph nodes. Thyroid: No thyroid nodules which require sonographic follow up, per consensus guidelines. Axillae: No enlarged lymph nodes. Chest Wall: No suspicious chest wall mass. Lungs and Pleura: Mild upper lobe emphysematous change. Anterior lingular and right middle lobe atelectasis. No suspicious nodule, mass, ground-glass opacity, or consolidation. Patent airways. No pleural effusion or pneumothorax. Heart: Normal size heart without pericardial effusion. LAD calcification. Lipomatous change of the interatrial septum. Thoracic Vessels: Dilated pulmonary arteries. Normal caliber thoracic aorta. Mediastinum and Shilpi: No enlarged lymph nodes. Esophagus: No wall thickening. No hiatal hernia. ABDOMEN: Liver: Cirrhotic liver morphology with heterogeneous nodular enhancement throughout much of the right lobe. Elongation of the lateral left lobe and nodular margin. Gallbladder: Densely calcified gallstone at the neck measuring 2.5 cm. Behind this, the gallbladder is distended. Biliary ducts: No biliary dilation. Pancreas: No ductal dilation. Spleen: Size is within normal limits. Adrenal Glands: Mild bilateral adrenal gland thickening. Kidneys and Ureters: Symmetric enhancement. Several cortical cystic masses. Moderate left hydronephrosis without hydroureter. There is a complex cyst with coarse calcification arising the lower pole left kidney measuring 2.3 cm. Stomach and Bowel: There is either ingested material or a nonenhancing heterogeneous mass along the proximal stomach greater curvature. Gastric wall does not appear to be thickened. Small bowel loops are normal. Occasional sigmoid diverticulosis. No visible colon abnormality. Peritoneum: No abnormal intraperitoneal fluid. No free air. Ventral Wall: Tiny fat containing umbilical hernia. Abdominal Nodes: No retroperitoneal or mesenteric adenopathy by size criteria. Vessels: The portal vein is prominent. There is a linear intraluminal hypodensity in the proximal portal vein arising from the superior mesenteric vein. IVC and aorta are normal caliber. Retro aortic left renal vein. PELVIS: Pelvic Organs: Absent uterus. No suspicious adnexal mass. Bladder: Decompressed. Pelvic Nodes: No enlarged lymph nodes. Miscellaneous: No inguinal hernias are seen. Bones: Probable T10 vertebral body hemangioma. No visible bone lesions. Punctate bone islands in the pelvis. IMPRESSION: 4.4 cm centrally necrotic left lower neck mass. Several other adjacent abnormal supraclavicular lymph nodes. Consider head neck etiology of malignancy, possibly lymphoma. Probable ingested material in the stomach. Consider upper endoscopy if clinically indicated. No other suspicious lymph nodes in the chest abdomen pelvis. Cirrhotic liver morphology with heterogeneous multifocal enhancement. This is likely due to regenerative or dysplastic nodules. Further characterization of liver lesions with hepatic protocol CT or MRI may be useful. Hepatic malignancy cannot be excluded. Possible nonocclusive portal vein thrombus. Indeterminate complex left lower pole renal cyst. Recommend evaluation during further follow-up studies. Dictated by: Arelis Shipman M.D. on 07/22/2024 at 15:41 Approved by: Arelis Shipman M.D. on 07/22/2024 at 16:06
[2024-07-22 10:11] LABS: BUN Creatinine Ratio 19.6 (6-22); Blood Urea Nitrogen 21 mg/dL (7-17); Calcium 9.7 mg/dL (8.4-10.2); Carbon Dioxide 27 mmol/L (22-32); Chloride 104 mmol/L (98-107); Estimated Glomerular Filt Rate 52 mL/min (>60); Glucose 122 mg/dL (70-99); HEMOLYSIS < 15 (0-50); Potassium 4.4 mmol/L (3.4-5.1); Sodium 139 mmol/L (137-145)
== END ==
LOC: CT 09:18
PROVIDERS: Family Provider Internal Medicine; PCP Internal Medicine; Referring Provider Surgery; Visit Provider Surgery
DX: R22.1 Localized swelling, mass and lump, neck (principal); R59.0 Localized enlarged lymph nodes; N13.2 Hydronephrosis with renal and ureteral calculous obstruction; N28.1 Cyst of kidney, acquired; K80.20 Calculus of gallbladder without cholecystitis without obstruction; I25.10 Atherosclerotic heart disease of native coronary artery without angina pectoris; K57.30 Diverticulosis of large intestine without perforation or abscess without bleeding; Z90.710 Acquired absence of both cervix and uterus
CPT/HCPCS: 71260; 74177; 80048; Q9967

== ENCOUNTER 2024-07-25 09:31 | Day surgery (SDC) | payer MEDICARE, SELFPAY ==
[2024-07-23 10:36] VITALS: BMI 27.1
--- NOTE | 2024-07-25 | PATH_ITS ---
[facility] Accession Number: [id number] No. of containers..03 Tissue 04 Unknown Storage/container code(s) . 01 Material submitted: . PART A: gastrointestinal site - HYPERPLACTIC POLYPS ANTRUM PART B: body - LEFT SUPRACLAVICULAR ADENOPATHY PART C: body - LEFT SUPRACLAVICULAR ADENOPATHY (B-PLUS FIX) . 01 Clinical history: . 95% ALCOHOL X2 SLIDES; X2 SLIDES IN [place] LI. . 01 Diagnosis: A. HYPERPLASTIC POLYPS ANTRUM, BIOPSY: Fundic gland type polyps with focal mild chronic inflammation. Negative for intestinal metaplasia, dysplasia, or malignancy. . B, C. LEFT SUPRACLAVICULAR ADENOPATHY, BIOPSY: Metastatic poorly differentiated carcinoma, please see microscopic description. [facility] 08/11/2024 1042 Local . 01 Comment: As part of ongoing water quality assistant, this case is also reviewed by Dr. Marla Boone, who agrees with the interpretation. . Results were called to [facility], on 08/07/2024 at 3:15 p.m. . 01 Electronically signed: . Lauren Brower MD, Pathologist NPI- [id number] . 01 Gross description: . A. Received in formalin, labeled with two patient identifiers and A. Hyperplastic polyps - antrum, and consists of three woodson tissues ranging from 0.1 cm up to 0.3 cm in greatest dimension, which are submitted in toto in cassette A1. B. Received in formalin, labeled with two patient identifiers and left supraclavicular adenopathy, and consists of a 1.2 x 0.6 x 0.3 cm aggregate of white, morcellated, friable soft tissue which is submitted in toto in cassette B1. C. Received in B-Plus fixative, labeled with two patient identifiers and left supraclavicular adenopathy, and consists of a 0.8 x 0.5 x 0.2 cm, white, irregular, and friable soft tissue which is submitted in toto in cassette C1. ([id number]) /[facility] 07/26/2024 1052 Local . 01 Microscopic: . B, C: Examination of the left supraclavicular mass reveals tumor invading fibroadipose tissue, without definite residual lymphoid tissue present, forming nests, as well as single and discohesive cells with eccentric nucleus and prominent nucleolus, in a background of extensive necrosis. Tumor overall displays poorly differentiated squamoid and glandular-like features. To better evaluate the tumor cells and in an attempt to identify the site of origin, an extensive panel of immunostains is performed on block B1, with the following results: . . GUILLERMINA: Tumor cells,uniform, diffuse positive. CK7: Tumor cells, uniform, diffuse positive. P40: Tumor cells positive. P63: Tumor cells positive. CK5/6: Tumor cells positive. P16: Tumor cells positive. GATA3: Tumor cells variable and patchy positive. SATB2: Tumor cells variable and patchy positive. Mucin: Rare cells positive for intracytoplasmic mucin. Mammaglobin: Tumor cells rare, weak positive. CK20: Tumor cells negative. Villin: Tumor cells negative for brush border staining pattern. CDX2: Tumor cells negative for definite nuclear staining. Estrogen Receptor and Progesterone Receptor: Tumor cells negative. HER2: Tumor cells negative for definite membranous staining. Napsin A: Tumor cells negative. TTF1: Tumor cells negative for definite nuclear staining. Uroplakin: Tumor cells negative. PAX8: Tumor cells negative. Chromogranin and Synaptophysin: Tumor cells negative. Melan-A and HMB45: Tumor cells negative. CD45: Tumor cells negative. . Based on the above immunophenotype, the tumor displays squamous differentiation given expression of the squamous markers p40, p63 and CK5/6. Variable and patchy positive GATA3 immunostain raises the possibility of urothelial and breast origin. Rare intracytoplasmic positivity supports a poorly differentiated glandular component (poorly differentiated adenocarcinoma). SATB2 positivity raises the possibility of upper GI tract origin (stomach, esophageal, pancreatobiliary) and with negative CDX2, CK20 and villin, the possibilty of lower gastrointestinal tract origin is not overall favored. Rare weak positivity of mammaglobin raises the possibility of breast origin, in conjunction with GATA3 positivity, although estrogen receptor and progesterone receptor negative, and HER2 negative for membranous staining. Negative Napsin A and TTF1 do not favor origin from lung (although certain subtypes of lung carcinoma cannot be entirely excluded). Negative PAX8 does not favor Mullerian origin. Negative chromogranin and synaptophysin argue against neuroendocrine differentiation. Negative Melan-A and HMB45 argue against metastatic melanoma. Negative CD45 argues against lymphoid malignancy. . In summary, given the above immunophenotype, the origin of this metastatic, poorly differentiated carcinoma cannot be determined with certainty; the differential diagnosis for primary site is wide, and includes bladder, breast, upper gastrointestinal origin (stomach, pancreatobiliary, esophageal), lung, Mullerian origin (although less favored), etc. . Correlation with imaging studies and the patient's clinical history will be required to determine the primary site with certainty. . Concurrent flow cytometry revealed rare T lymphocytes without definite immunophenotypic aberrancy (please see complete flow cytometry report [facility] specimen number [id number]) for details. . Technical note: * This test was developed and the performance characteristics were validated by [facility]. It has not been cleared or approved by the U.S. Food and Drug Administration. . 01 Pathologist provided ICD-10: R59.0, R22.0, R22.1 . 01 CPT . 223424, 823536, 575890, H39561, C29992, [id number] Specimen Comment: A courtesy copy of this report has been sent to [facility] Pathology Performed at: [address] [facility], [place], [place] [id number] MD Rajeev Jack MD Phone: [phone]
[2024-07-25 10:05] VITALS: BMI 27.1
[2024-07-25 10:07] VITALS: BP 127/84; PULSE 106; RESP 20; TEMP 36.8; O2SAT 94
[2024-07-25] MEDS: LACTATED RINGERS 1,000 ML 42 ML IV (10:18)
--- NOTE | 2024-07-25 10:41 | PM.PREOP ---
Pre-operative Note Interval Note History & Physical reviewed/Exam performed by Physician: Yes Changes to H&P: Yes H&P completed within 30 days and has changed as indicated here:: CT with gastric mass, no other adenopathy seen beyond LT supraclavicular. Plan EGD/LN bx ASA Class (for procedural sedation): II
--- NOTE | 2024-07-25 10:59 | SUR.OPER ---
Lateral, head on pillow, gel axillary roll in place, bottom leg bent with gel pad under knee to foot,upper leg straight and supported with pillows. bump to back. Upper arm supported by pillows and secured over bottom arm to padded arm board. Safety belt at hip, tape over blanket lower legs.
[2024-07-25 11:37] VITALS: BP 92/60; PULSE 92; RESP 23; TEMP 36.1; O2SAT 98
[2024-07-25 11:41] VITALS: BP 95/60; PULSE 82; RESP 15; O2SAT 98
--- NOTE | 2024-07-25 11:44 | PM.OP.1 ---
Operative Date/Time/Diagnoses Date of procedure: 07/25/24 Time of procedure: 11:44 Pre-op diagnosis: LT supraclavicular lymphadenopathy Post-op diagnosis: same Procedure & Clinicians Procedure: EGD with biopsy LT supraclavicular LN biopsy, core needle biopsy Same procedure(s) as scheduled: Yes Indications: 83yo F with LT supraclavicular lymphadenopathy. CT scan demonstrated possible gastric mass. Surgeon: Raghav Hyatt Ordnance Mechanic: Romero Fischer Anesthesia Type: MAC +/- and Local Operative Notes Findings: EGD with mild antritis, multiple hyperplastic polyps, biopsied LT supraclavicular lymphadenopathy biopsied with core needle, lymphoma protocol specimens obtained Closure Type: primary Specimen(s): other (gastric polyps, LT supraclavicular lymph nodes core needle biopsy) Applied: none Estimated Blood Loss (mL): 5 Blood products transfused: none Procedure in detail: After informed consent and satisfactory sedation per anesthesia the patient was placed in the right lateral decubitus position with the head of the bed elevated to reduce the risk for aspiration. The bite block was carefully inserted between the teeth. The endoscope was advanced through the bite block and over the tongue. The epiglottis was readily identified and the scope was passed easily into the upper esophagus and advanced down the esophageal lumen. The patient was noted to have a patulous hiatus with no esophagitis. Insufflating the stomach was noteworthy for mild antral gastritis and multiple small 5 mm hyperplastic polyps suggestive of prior PPI therapy. Two of these were biopsied with cold biopsy forceps and sent in formalin for permanent section. The insufflated air was suctioned as the scope was withdrawn. The patient tolerated this portion of the procedure well. Our attention was then turned toward lymph node biopsy. The patient was then repositioned supine with the neck extended away from the left supraclavicular adenopathy and prepped and draped in the usual sterile manner. The nodes were quite prominent and I felt that we could safely perform a core needle biopsy after stabilizing the matted nodes with our fingers and this worked very well. After injecting 3 cc of 0.25% Marcaine with epinephrine into the skin and subcutaneous tissues I made a small skin incision for the needle with a #11 blade knife and multiple core needle biopsies were performed with the Rocco-Cut needle. We utilized the lymphoma protocol per pathology as this is in the differential. We were able to create 4 dry slides and then obtain enough cores for each requested container for the lymphoma protocol. We were also able to achieve multiple cores for the formalin container for permanent section. The manual Rocco-Cut was utilized. We approached the bulky nodes from posterior and the course of the core needle biopsy was parallel to the skin. The trajectory was into the matted node complex rather than aimed at any of the known important structures in this region. We were well away from the apex of the left thorax. Minimal oozing from the needle site. After 5 minutes of direct pressure hemostasis was excellent. No cautery was required. The tiny skin opening for the needle was closed with Dermabond glue. There was no swelling, bruising or bleeding noted at the end of the procedure. The estimated blood loss was minimal. The instrument sponge and needle counts were all correct x2 at the end of the procedure. The patient tolerated the procedure well and was transported to the recovery area in stable condition. Complications: none Post-operative Condition: stable Disposition: PACU Plan for aftercare: F/U in office in two weeks. Await pathology results.
[2024-07-25 11:47] VITALS: BP 88/60; PULSE 80; RESP 17; O2SAT 97
[2024-07-25 11:51] VITALS: BP 101/59; PULSE 78; RESP 12; TEMP 36.2; O2SAT 97
[2024-07-25] MEDS: BUPIVACAINE 0.25% W/ EPI 30 ML VIAL INJ (12:00)
[2024-07-25 12:05] VITALS: BP 101/66; PULSE 79; RESP 19; TEMP 36.4; O2SAT 97
== END 2024-07-25 12:31 | disposition home or self-care (01) ==
PROVIDERS: Family Provider Internal Medicine; PCP Internal Medicine; Referring Provider Surgery; Visit Provider Surgery
PROC: 0DJ08ZZ Inspection of Upper Intestinal Tract, Via Natural or Artificial Opening Endoscopic (ICD-10-PCS; CPT 38505; principal; 2024-07-25 11:15)
PROC: (CPT 38505; 2024-07-25 11:15)
DX: C77.0 Secondary and unspecified malignant neoplasm of lymph nodes of head, face and neck (principal); C80.1 Malignant (primary) neoplasm, unspecified; K31.7 Polyp of stomach and duodenum; K29.50 Unspecified chronic gastritis without bleeding; Z87.891 Personal history of nicotine dependence
CPT/HCPCS: 38505; 43239; J0330; J1100; J2704; J3010

== ENCOUNTER → 2024-09-13 08:08 | Outpatient (CLI) | payer MEDICARE, SELFPAY ==
[2024-09-13 10:36] LABS: Add Manual Diff / Slide Review NO; Hematocrit 36.0 % (36-46); Hemoglobin 12.2 g/dL (12.0-16.0); Lymphocytes Absolute Auto 1800 /uL (1100-4500); Mean Corpuscular HGB Conc 34.0 % (30-36); Mean Corpuscular Hemoglobin 31.1 PG (26-34); Mean Corpuscular Volume 91.7 fL (80-100); Platelet Count 166 X10^3/uL (150-400)
[2024-09-13 12:26] LABS: Alanine Aminotransferase 22 IU/L (<35); Albumin 3.7 g/dL (3.5-5.0); Albumin Globulin Ratio 1.2 (1.0-2.8); Alkaline Phosphatase 124 U/L (38-126); Globulin 3.0 g/dL (1.7-4.1); HEMOLYSIS < 15 (0-50); Total Protein 6.7 g/dL (6.3-8.2)
[2024-09-14 08:12] LABS: Immunoglobulin G, Quantitative 1172 mg/dL (586-1602)
== END ==
PROVIDERS: Family Provider Internal Medicine; PCP Internal Medicine; Referring Provider Internal Medicine Gastroenterology; Visit Provider Internal Medicine Gastroenterology
DX: K74.69 Other cirrhosis of liver (principal); K75.4 Autoimmune hepatitis
CPT/HCPCS: 36415; 80076; 80197; 82784; 85025

== ENCOUNTER 2024-12-04 10:31 | Emergency (ER) | payer MEDICARE, SELFPAY ==
[2024-12-04] VITALS (10 sets, daily range): BP systolic 108–118; BP diastolic 65–77; PULSE 76–92; RESP 13; TEMP 36.3; O2SAT 97–100; BMI 24.8
--- NOTE | 2024-12-04 10:44 | ED.FALL ---
HPI - Fall General Chief Complaint: Trauma Stated Complaint: fell, Right elbow pain Time Seen by Provider: 12/04/24 10:32 Mode of arrival: Ambulatory History of Present Illness HPI Narrative: Modified trauma activated Primary survey A -airway intact B -equal breath sounds C -strong heart sounds D -no gross deformity, however there is swelling to the right elbow. E -patient in gown Patient brought here by for right elbow pain abrasion of the forehead. Patient was at home trying good down 14 steps on her stairs. 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 She is uncertain how she fell down but denies any neck pain back pain abdominal pain chest pain. No pelvic or lower extremity pain no hip pain. No left upper extremity pain. No right shoulder pain or wrist or hand pain but there is right elbow pain. Patient is not on any blood thinners. Patient does not want anything for pain. Injury occurred yesterday. Related Data Home Medications ?Medication ?Instructions ?Recorded ?Confirmed tacrolimus 1 mg capsule, 1 mg PO Q12H 10/08/19 08/27/24 immediate-release mycophenolate mofetil 500 mg tablet 500 mg PO BID 02/17/21 08/27/24 Previous Rx's ?Medication ?Instructions ?Recorded alendronate 70 mg tablet See Rx Instructions .Route 07/01/24 .COMPLEX #12 tabs losartan 25 mg tablet 12.5 mg (1/2 x 25 mg) PO DAILY #45 09/02/24 tabs atorvastatin 20 mg tablet 20 mg PO DAILY #90 tabs 10/03/24 levothyroxine 75 mcg tablet 75 mcg PO DAILY #90 tabs 10/03/24 spironolactone 25 mg tablet 25 mg PO DAILY #90 tabs 10/28/24 hydrocodone 5 mg-acetaminophen 325 1 tab PO Q6H PRN pain #20 tabs 12/04/24 mg tablet ondansetron 4 mg disintegrating 4 mg PO Q6H PRN nausea and 12/04/24 tablet vomiting #20 tabs Allergies Allergy/AdvReac Type Severity Reaction Status Date / Time Sulfa (Sulfonamide Allergy Intermediate Cough Verified 12/04/24 10:35 Antibiotics) MRI dye AdvReac Uncoded 12/04/24 10:35 Review of Systems Review of Systems Narrative: GENERAL: Negative chills, fatigue, malaise, fever, sweats. 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 Supraclavicular adenopathy Primary osteoarthritis of right knee Essential hypertension Mixed hyperlipidemia Acquired hypothyroidism Osteoarthritis Carpal tunnel syndrome Strabismus (~1944) Cataracts, bilateral Fibroids (~1984) Autoimmune hepatitis (~1998) Colon polyps (~2019) Cirrhosis (~1998) Hypercholesteremia Osteoporosis (~2018) Hypothyroid (~1992) Hypertension (~1998) Surgical History (Updated 07/23/24 @ 10:47 by Olinda Shaikh RN) History of total right knee replacement (01/21/24) Anesthesia History of dilatation and curettage (~1972) History of carpal tunnel repair (~1993) History of tonsillectomy and adenoidectomy (~1948) History of surgical procedure (~1947) H/O: hysterectomy (~1991) Family History (Updated 02/16/21 @ 19:17 by Naomi Rivas) Father Renal failure Mother Hypertension Stroke Sister Hypertension Social History (Updated 07/21/24 @ 09:56 by Jessy Pope MA) marital status: household members: spouse Smoking Status: Unknown if ever smoked alcohol intake: former substance use type: does not use additional social history: pneumonia vax and coloscopy done Smoking Status: Unknown if ever smoked alcohol intake frequency: 0-2 drinks per day Exam Narrative Exam Narrative: GENERAL: in no distress, not toxic not dyspneic HEAD: Normocephalic. Abrasion left forehead no laceration. Clean dry, no skull or scalp tenderness or step-off or crepitus. EYES: Pupils equal round ENT: Mucous membranes moist. NECK: Trachea midline. No midline tenderness step-off of the cervical thoracic or lumbar spine CARDIOVASCULAR: Regular rate and rhythm RESPIRATORY: Clear to auscultation. Breath sounds equal bilaterally. No wheezes, rales, or rhonchi. GASTROINTESTINAL: Abdomen soft, non-tender BACK: No flank tenderness. EXTREMITIES: No gross deformities. Examination right upper extremity nontender shoulder and elbow. There is edema to the olecranon area. Limited flexion-extension supination pronation due to pain. 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 NEURO: AOx4. Clear speech SKIN: Warm and dry PSYCH: Not anxious, is cooperative Initial Vital Signs Initial Vital Signs: Vital Signs Temperature 97.3 F L 12/04/24 10:35 Pulse Rate 92 H 12/04/24 10:35 Respiratory Rate 13 12/04/24 10:35 Blood Pressure 113/69 12/04/24 10:35 Pulse Oximetry 100 12/04/24 10:35 Oxygen Delivery Method Room Air 12/04/24 10:35 Procedures Orthopedic Splinting/Casting Injury #1: Time of procedure: 12:08 Side: right Upper Extremity Injury Location: elbow Upper Extremity Immobilizer: posterior splint Post splinting neuro exam: intact Post splinting vascular exam: intact Placed by: Nursing Additional Comments: Sling applied Course Orders Ordered: ED Orders 12/04/24 10:46 CT cervical spine wo con Stat CT head/brain wo con Stat XR elbow RT 2V Stat 12/04/24 11:13 Ct Elbow right without con Stat 12/04/24 11:14 Consult to Orthopedic Surgery Stat Discontinued Medications Diphtheria/Tetanus/Acell Pertussis (Tet,Diph,Pertuss(Acell),Vac/Pf 0.5 Ml Syringe) 0.5 ml IM .ONCE ONE Stop: 12/04/24 10:47 Last Admin: 12/04/24 12:16 Dose: 0.5 ml Documented By: ZKALE Vital Signs Vital signs: Vital Signs - 8 hr 12/04/24 10:35 12/04/24 11:06 12/04/24 11:07 Temperature 97.3 F L Pulse Rate 92 H 82 Respiratory Rate 13 Blood Pressure 113/69 111/71 Pulse Oximetry 100 100 Oxygen Delivery Method Room Air 12/04/24 11:07 12/04/24 11:15 12/04/24 11:15 Temperature Pulse Rate 78 76 Respiratory Rate Blood Pressure 108/68 Pulse Oximetry 98 98 Oxygen Delivery Method 12/04/24 11:32 12/04/24 11:33 12/04/24 11:33 Temperature Pulse Rate 87 87 Respiratory Rate Blood Pressure 118/65 Pulse Oximetry 97 97 Oxygen Delivery Method 12/04/24 11:44 12/04/24 11:46 12/04/24 12:00 Temperature Pulse Rate 84 Respiratory Rate Blood Pressure 118/77 113/73 Pulse Oximetry 99 Oxygen Delivery Method 12/04/24 12:15 Temperature Pulse Rate Respiratory Rate Blood Pressure 111/72 Pulse Oximetry Oxygen Delivery Method MDM - Fall Imaging Data Extremity x-ray #1: Radiologist's Impression: [address] [address] [address] Scan Report Signed Patient: Felecia Chapin MR#: [id number] : 1940 Acct:[id number] Age/Sex: 84 / F Date of Service: 12/04/24 Loc: ED Accession Number: [id number] Procedure: Ct Elbow right without con Ordering Provider: Jerod Galan MD PROCEDURE: CT ELBOW RIGHT WITHOUT CON INDICATIONS: BROKEN ELBOW TECHNIQUE: Noncontrast 1-1.5 mm axial sections were acquired through the elbow joint, with coronal and sagittal reformats. COMPARISON: [facility], CR, XR ELBOW RT 2V, 12/04/2024, 10:42. FINDINGS: Image quality: Excellent. Bones: There is a comminuted displaced radial head fracture. There are tiny bone chips off of the olecranon of the ulna. There is a tiny bony fragment medial to the medial epicondyle of the distal humerus, of uncertain origin. Soft tissues: Soft tissue swelling and elbow joint effusion. IMPRESSION: 1. Comminuted displaced radial head articular fracture. 2. Tiny bony chips off of the olecranon of the ulna. 3. Tiny bone fragment medial to the medial epicondyle of the humerus, of uncertain origin. Dictated by: Klaus Greer M.D. on 12/04/2024 at 12:05 Approved by: Klaus Greer M.D. on 12/04/2024 at 12:09 Extremity x-ray #2: Radiologist's Impression: [address] [address] XRay Report Signed Patient: Felecia Chapin MR#: [id number] : 1940 Acct:[id number] Age/Sex: 84 / F Date of Service: 12/04/24 Loc: ED Accession Number: [id number] Procedure: XR elbow RT 2V Ordering Provider: Jerod Galan MD PROCEDURE: XR ELBOW RT 2V INDICATIONS: Pain/fall TECHNIQUE: 2 views of the elbow were acquired. COMPARISON: None. FINDINGS: Bones: Comminuted impacted radial head fracture with displaced fracture fragment. Soft tissues: Positive elbow joint effusion. No suspicious soft tissue calcifications. IMPRESSION: Comminuted, impacted radial head fracture with displaced fracture fragment. Dictated by: Klaus Greer M.D. on 12/04/2024 at 11:26 Approved by: Klaus Greer M.D. on 12/04/2024 at 11:27 CT scan - head: Radiologist's Impression: [place] [address] CT Scan Report Signed Patient: Felecia Chapin MR#: [id number] : 1940 Acct:[id number] Age/Sex: 84 / F Date of Service: 12/04/24 Loc: ED Accession Number: [id number] Procedure: CT head/brain wo con Ordering Provider: Jerod Galan MD PROCEDURE: CT HEAD/BRAIN WO CON INDICATIONS: Fall/pain TECHNIQUE: Noncontrast 4.5 mm thick angled axial sections acquired from the foramen magnum to the vertex, with coronal and sagittal reformats. For radiation dose reduction, the following was used: automated exposure control, adjustment of mA and/or kV according to patient size. COMPARISON: [place], [place], [place] PET CT FUSION SKULL 2 THIGH, 08/27/2024, 10:01. [facility], CT, CT CERVICAL SPINE WO CON, 12/04/2024, 10:55. [place], [place], PET NECK TO MID THIGH, 11/04/2024, 10:49. FINDINGS: Image quality: Diagnostic. CSF spaces: Basal cisterns are patent. No extra-axial fluid collections. The ventricles are symmetric in size and shape. Brain: There is a rim calcified extra-axial mass seen along the medial anterior aspect of the left frontal lobe, measuring 2.6 x 2.5 cm in greatest axial dimension, with a maximum craniocaudal extent of 3.4 cm. No intracranial bleeds. There is cerebral volume loss, with resultant ventricular and sulcal prominence. There are periventricular and deep white matter chronic small vessel ischemic changes. There is intracranial internal carotid artery atherosclerosis. Skull and face: Calvarium and visualized facial bones appear intact, without suspicious lesions. Sinuses: There is significant opacification seen involving the right maxillary sinus, with remodeling change of the medial wall of the left maxillary sinus, with calcification. No significant additional paranasal sinus disease is seen. No abnormal fluid is seen within the mastoid air cells. IMPRESSION: No acute intracranial hemorrhage is seen. No acute intracranial pathology. There is a 3.4 cm rim calcified extra-axial lesion along the medial anterior aspect of the left frontal lobe. This represents a meningioma until proven otherwise. Dictated by: Navid Gardner M.D. on 12/04/2024 at 10:01 Approved by: Navid Gardner M.D. on 12/04/2024 at 10:05 CT - cervical spine: Radiologist's Impression: [place] [address] CT Scan Report Signed Patient: Felecia Chapin MR#: [id number] : 1940 Acct:[id number] Age/Sex: 84 / F Date of Service: 12/04/24 Loc: ED Accession Number: [id number] Procedure: CT cervical spine wo con Ordering Provider: Jerod Galan MD PROCEDURE: CT CERVICAL SPINE WO CON INDICATIONS: Fall/pain TECHNIQUE: Noncontrast 3 mm thick sections acquired from the skull base to the T4 level. Sagittal and coronal reformats were then constructed. For radiation dose reduction, the following was used: automated exposure control, adjustment of mA and/or kV according to patient size. COMPARISON: None. FINDINGS: Image quality: Excellent. Bones: No fractures or dislocations. Visualized superior ribs are intact. Focal degenerative change is seen involving the C1-C2 interface anteriorly. There is at least moderate disc space narrowing seen at C4-C5. There is moderate disc space narrowing at C5-C6. Moderate to severe disc space narrowing can be seen at C6-C7 and at C7-T1. Multiple levels of significant facet hypertrophy can be seen, left worse than right. Focal right maxillary sinus disease noted. 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 Soft tissues: Prevertebral soft tissues are normal in thickness. No paravertebral hematomas. No apical pneumothoraces. There is a right-sided chest port. Atherosclerotic calcification is noted. IMPRESSION: No displaced fracture or traumatic subluxation. Multiple levels of significant cervical spine degenerative change can be seen, which are worst inferiorly. Additional findings: Focal right maxillary sinus disease Right-sided chest port Dictated by: Navid Gardner M.D. on 12/04/2024 at 10:06 Approved by: Navid Gardner M.D. on 12/04/2024 at 10:07 [facility] [place] Narrative Medical decision making narrative: Patient brought here by for right elbow pain abrasion of the forehead. Patient was at home trying good down 14 steps on her stairs. 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 She is uncertain how she fell down but denies any neck pain back pain abdominal pain chest pain. No pelvic or lower extremity pain no hip pain. No left upper extremity pain. No right shoulder pain or wrist or hand pain but there is right elbow pain. Patient is not on any blood thinners. Patient does not want anything for pain. Injury occurred yesterday. MDM After history and exam, CT head CT cervical spine Tdap x-ray right elbow ice pack, patient does not want anything for pain., no blood work indicated this time. Differential considered: Includes but not limited to elbow fracture dislocation contusion strain sprain, forehead abrasion/skull fracture intracranial bleed Medical records reviewed: No recent visit for this complaint Imaging studies independently reviewed: CT head no acute findings CT cervical spine no acute finding x-ray right elbow radial head fracture, CT elbow radial head fracture Consultations: 11:14 a.m.. I spoke with Dr. Gill, orthopedic, he has reviewed the x-rays with me and would like CT of the elbow and follow up with patient next week in the office. Re-evaluations: 12:14 p.m.. Patient feeling much better with elbow splint. Pain controlled. She does not want thing for pain. However she does agree for prescription for pain medication. Reviewed with her findings and my discussion with orthopedic provider. Reviewed with her results. 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 Return precautions reviewed. They desire discharge home. Discussion: Appropriate for discharge home. Exam is reassuring. Return precautions reviewed patient. Not toxic at discharge. She desires discharge home. Pain is controlled. Diagnosis: Right elbow fracture Discharge Plan Departure Patient Disposition: Home Clinical Impression: Elbow fracture, right Qualifiers: Encounter type: initial encounter Fracture type: closed Qualified Code(s): S42.401A - Unspecified fracture of lower end of right humerus, initial encounter for closed fracture Contusion of forehead Qualifiers: Encounter type: initial encounter Qualified Code(s): S00.83XA - Contusion of other part of head, initial encounter Instructions: DI for Elbow Fracture, DI for Contusion, DI for Closed Head Injury Activity Restrictions/Additional Instructions: No driving operating machinery until cleared by orthopedic provider. Short course of pain medication and prescription has been provided for you. Splint has been applied until evaluated by the orthopedic provider. Please call their office today. Return if worse if any questions or concerns. Prescriptions: New hydrocodone-acetaminophen 5-325 mg tablet 1 tab PO Q6H PRN (Reason: pain) Qty: 20 0RF ondansetron 4 mg tablet,disintegrating 4 mg PO Q6H PRN (Reason: nausea and vomiting) Qty: 20 0RF No Action alendronate 70 mg tablet See Rx Instructions .ROUTE .COMPLEX Qty: 12 3RF Dose Instruction: TAKE 1 TABLET BY MOUTH WEEKLY WITH 8 OZ OF PLAIN WATER 30 MINUTES BEFORE FIRST FOOD, DRINK OR MEDS. STAY UPRIGHT FOR 30 MINS Rx Instructions: TAKE 1 TABLET BY MOUTH WEEKLY WITH 8 OZ OF PLAIN WATER 30 MINUTES BEFORE FIRST FOOD, DRINK OR MEDS. STAY UPRIGHT FOR 30 MINS losartan 25 mg tablet 12.5 mg PO DAILY Qty: 45 3RF atorvastatin 20 mg tablet 20 mg PO DAILY Qty: 90 2RF levothyroxine 75 mcg tablet 75 mcg PO DAILY Qty: 90 2RF spironolactone 25 mg tablet 25 mg PO DAILY Qty: 90 1RF mycophenolate mofetil 500 mg tablet 500 mg PO BID tacrolimus 1 mg Capsule 1 mg PO Q12H Referrals: Matt Soto MD [Primary Care Provider, Internal Medicine] Surya Gill MD [Physician, Orthopedic Surgery] Stand Alone Forms: Patient Portal/API
--- NOTE | 2024-12-04 11:13 | DI.CT.S_ITS ---
PROCEDURE: CT ELBOW RIGHT WITHOUT CON INDICATIONS: BROKEN ELBOW TECHNIQUE: Noncontrast 1-1.5 mm axial sections were acquired through the elbow joint, with coronal and sagittal reformats. COMPARISON: [facility], CR, XR ELBOW RT 2V, 12/04/2024, 10:42. FINDINGS: Image quality: Excellent. Bones: There is a comminuted displaced radial head fracture. There are tiny bone chips off of the olecranon of the ulna. There is a tiny bony fragment medial to the medial epicondyle of the distal humerus, of uncertain origin. Soft tissues: Soft tissue swelling and elbow joint effusion. IMPRESSION: 1. Comminuted displaced radial head articular fracture. 2. Tiny bony chips off of the olecranon of the ulna. 3. Tiny bone fragment medial to the medial epicondyle of the humerus, of uncertain origin. Dictated by: Klaus Greer M.D. on 12/04/2024 at 12:05 Approved by: Klaus Greer M.D. on 12/04/2024 at 12:09
[2024-12-04] MEDS: TET,DIPH,PERTUSS(ACELL),VAC/PF 0.5 ML SYRINGE IM (12:16)
== END 2024-12-04 12:34 | disposition home or self-care (01) ==
PROVIDERS: Emergency Provider Emergency Medicine; Family Provider Internal Medicine; PCP Internal Medicine
DX: S42.401A Unspecified fracture of lower end of right humerus, initial encounter for closed fracture (principal); S00.83XA Contusion of other part of head, initial encounter; S00.81XA Abrasion of other part of head, initial encounter; W10.9XXA Fall (on) (from) unspecified stairs and steps, initial encounter; Z23 Encounter for immunization
CPT/HCPCS: 29105; 70450; 72125; 73070; 73200; 90471; 99284; 90715